=== PATIENT | female | born 1955 | race Caucasian/White ===

== ENCOUNTER 2017-04-15 12:18 | Inpatient (IN) | payer MEDICAID ==
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
[2017-04-15 15:16] LABS: % IMMATURE GRANULYOCYTES 0.3 % (0.0-1.1); ABSOLUTE IMMATURE GRANULOCYTES 0.03 10^3/uL (0.00-0.10); ADD DIFF? NO; ADD MORPH? NO; ADD SCAN? NO; ATYPICAL LYMPHOCYTE FLAG 0 (0-99); FRAGMENT RBC FLAG 0 (0-99); HEMATOCRIT 46.4 % (38.0-47.0); HEMOGLOBIN 15.5 g/dL (12.6-16.3); LEFT SHIFT FLG 0 (0-99); LIPEMIA HEMOLYSIS FLAG 80 (0-99); MEAN CELL HEMOGLOBIN 29.5 pg (27.9-34.1); MEAN CELL HEMOGLOBIN CONCENTR. 33.4 g/dL (32.4-36.7); MEAN CELL VOLUME 88.4 fL (81.5-99.8); PLATELET CLUMPS FLAG 0 (0-99); PLATELET COUNT 232 10^3/uL (150-400); RED BLOOD CELL COUNT 5.25 10^6/uL (4.18-5.33); RED CELL DISTRIBUTION WIDTH 14.3 % (11.5-15.2)
[2017-04-15 15:29] LABS: ANION GAP 9 mEq/L (8-16); CALCIUM 8.9 mg/dL (8.5-10.4); CARBON DIOXIDE 27 mEq/l (22-31); CHLORIDE 106 mEq/L (97-110); CREATININE 0.5 mg/dL (0.6-1.0); ETHANOL SERUM < 10 mg/dL (0-10); GLOMERULAR FILTRATION RATE > 60; GLUCOSE 121 mg/dL (70-100); POTASSIUM 4.2 mEq/L (3.5-5.2); SODIUM 142 mEq/L (134-144)
[2017-04-15] MEDS ORDERED: PREGABALIN 150 MG CAP PO ONE (19:08)
[2017-04-16] MEDS ORDERED: METHADONE HCL 10 MG TAB PO ONE (02:00)
[2017-04-16] MEDS ORDERED: DABIGATRAN ETEXILATE MESYL 150 MG CAP PO ONE (02:58)
[2017-04-16] MEDS ORDERED: METOPROLOL TARTRATE 50 MG TAB PO ONE (02:58)
[2017-04-16] MEDS ORDERED: FUROSEMIDE 40 MG TAB PO ONE (03:01)
[2017-04-16] MEDS ORDERED: METOPROLOL TARTRATE 25 MG TAB ONE (08:44)
[2017-04-16] MEDS ORDERED: FUROSEMIDE 40 MG TAB ONE (08:44)
[2017-04-16] MEDS ORDERED: DABIGATRAN ETEXILATE MESYL 150 MG CAP PO SCH (09:00)
[2017-04-16] MEDS ORDERED: LISINOPRIL 10 MG TAB PO SCH (09:00)
[2017-04-16] MEDS: metFORMIN HCL 500 MG TAB PO SCH ×2 (09:48→20:09)
[2017-04-16] MEDS: PREGABALIN 100 MG CAP PO SCH ×2 (09:48→20:08)
[2017-04-16] MEDS ORDERED: METHADONE HCL 1 MG/ML SYR PO ONE (09:57)
[2017-04-16] MEDS: METOPROLOL TARTRATE 25 MG TAB PO SCH (20:28)
[2017-04-16] MEDS ORDERED: ACETAMINOPHEN 325 MG TAB PO PRN (21:04)
[2017-04-16] MEDS ORDERED: MAGNESIUM HYDROXIDE 30 ML UDCUP PO PRN (21:04)
[2017-04-16] MEDS: FLUTICASONE/SALMETER 250/50MCG DISKUS IH SCH ×2 (21:12→21:18)
[2017-04-16] MEDS: DABIGATRAN ETEXILATE MESYL 150 MG CAP PO SCH (21:12)
[2017-04-16] MEDS: LORazepam 0.5 MG TAB PO PRN (21:14)
[2017-04-16] MEDS ORDERED: PREGABALIN 50 MG CAP PO SCH (22:00)
[2017-04-16] MEDS ORDERED: METHADONE HCL 10 MG TAB PO SCH (22:00)
[2017-04-17] MEDS ORDERED: D50W 25 GM/50 ML SYR IVP PRN (07:26)
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
[2017-04-17] MEDS: PREGABALIN 50 MG CAP PO SCH ×3 (08:02→21:32)
[2017-04-17] MEDS: METHADONE HCL 10 MG TAB PO SCH ×3 (08:03→21:32)
[2017-04-17] MEDS: FUROSEMIDE 40 MG TAB PO SCH ×2 (09:00→15:42)
[2017-04-17] MEDS: INSULIN LISPRO 100 UNIT/ML SC SCH ×4 (09:00→18:35)
[2017-04-17] MEDS ORDERED: METHADONE HCL 1 MG/ML SYR PO ONE (09:57)
[2017-04-17] MEDS: POTASSIUM CL 10 MEQ TAB PO SCH ×2 (10:45→15:49)
[2017-04-17] MEDS: metFORMIN HCL 500 MG TAB PO SCH ×2 (10:45→18:36)
[2017-04-17] MEDS: METOPROLOL TARTRATE 25 MG TAB PO SCH ×2 (10:46→21:33)
[2017-04-17] MEDS: LISINOPRIL 10 MG TAB PO SCH (10:46)
[2017-04-17] MEDS: DABIGATRAN ETEXILATE MESYL 150 MG CAP PO SCH ×2 (10:47→21:31)
[2017-04-17] MEDS: LORazepam 0.5 MG TAB PO PRN (10:53)
[2017-04-17] MEDS: FLUTICASONE/SALMETER 250/50MCG DISKUS IH SCH ×2 (11:57→21:32)
--- NOTE | 2017-04-17 14:32 | WOCRNPDOC ---
WOCRN Advanced Assessment Note - Skin Integrity Problem, Advanced Assess Left Lower Leg Venous Stasis Ulcer Dressing Type: Telfa, Other Other Dressing Type: stretch net Dressing Description: Intact, Shadowed Exudate Amount: Scant Exudate Color: Reddish/Yellow Exudate Characteristic(s): Serosanguinous Integumentary Issue Intervention: Dressing Changed, Hydrogel Applied (Anasept wound gel, supplied by wound care and left w/ nursing) Jose Wound Tissue: Erythema, Denuded, Scaly, Venous Dermatitis, Painful/Tender Jose Wound Swelling: Mild Wound Bed Color: Red Wound Bed Constitution: Smooth Tissue Wound Edges: Irregular Site Odor: None Site Measurement - Head-to-Toe Length X Width X Depth (cm): 2.5cmx1.7cmx0.1cm Skin Integrity Problem Comment: Wound noted on lower anterior left leg, consistent in appearance w/ venous stasis ulcer. Initial injury may have been a skin tear, as there is a partial skin flap across the wound bed. However, jose- wound skin changes indicate long-term venous insufficiency, including hemosiderin staining and venous dermatitis. In addition, moist and dry desquamation observed on this extremity. No purulence or necrosis noted. There is some discrete erythema and c/o pain to this site, but no difference in local tissue temperature when compared to other extremity. truck bracer did a wound culture last night, results currently pending. Patient reports having compression therapy in the outpatient setting at the [facility], and I advised her to continue this type of therapy ongoing upon discharge. Dressing with hypochlorous wound gel applied this afternoon. truck bracer Cindi present and assisting. Wound care will follow up with patient on Sunday 04/22 if she remains inpatient.
[2017-04-18] MEDS: PROMETHAZINE HCL 25 MG TAB PO PRN (01:12)
[2017-04-18] MEDS: PREGABALIN 50 MG CAP PO SCH ×3 (01:33→20:36)
[2017-04-18] MEDS: METHADONE HCL 10 MG TAB PO SCH ×3 (01:34→20:35)
[2017-04-18] MEDS: LORazepam 0.5 MG TAB PO PRN ×2 (01:35→12:27)
[2017-04-18 02:40] LABS: HEMOGLOBIN A1C 7.9 % (4.0-6.0)
--- NOTE | 2017-04-18 07:44 | SOAPPROG ---
SOAP Progress Note Assessment/Plan: Assessment: Plan: 04/18/17 DAY ' UPDATE/EXAM: Objective: Vital Signs Temp Pulse Resp BP Pulse Ox 36.5 C 75 20 94/51 L 92 04/18/17 00:30 04/18/17 00:30 04/18/17 00:30 04/18/17 00:30 04/18/17 00:30 Microbiology 04/16/17 21:10 Gram Stain - Final Leg - Swab ICD10 Worksheet Patient Problems: Problems Problem Status Onset Depression Acute Abscess of abdominal wall Acute Abscess of thigh Acute Heroin addiction Acute MRSA (methicillin resistant Staphylococcus aureus) Acute 07/01/15 Urinary tract infection Acute
[2017-04-18] MEDS: INSULIN LISPRO 100 UNIT/ML SC SCH ×3 (07:57→17:23)
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
[2017-04-18] MEDS: metFORMIN HCL 500 MG TAB PO SCH ×2 (08:34→17:36)
[2017-04-18] MEDS: DABIGATRAN ETEXILATE MESYL 150 MG CAP PO SCH ×2 (08:34→20:34)
[2017-04-18] MEDS: FLUTICASONE/SALMETER 250/50MCG DISKUS IH SCH ×2 (08:34→20:34)
[2017-04-18] MEDS: POTASSIUM CL 10 MEQ TAB PO SCH ×2 (08:35→15:02)
[2017-04-18] MEDS: FUROSEMIDE 40 MG TAB PO SCH ×2 (08:35→15:06)
[2017-04-18] MEDS: LISINOPRIL 10 MG TAB PO SCH (10:03)
[2017-04-18] MEDS: METOPROLOL TARTRATE 25 MG TAB PO SCH ×2 (10:04→20:36)
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
[2017-04-18] MEDS: buPROPion SR 100 MG TAB PO SCH (12:25)
[2017-04-18] MEDS ORDERED: METHADONE HCL 1 MG/ML SYR PO SCH (16:00)
[2017-04-18] MEDS: traZODone 50 MG TAB PO SCH (20:36)
[2017-04-19] MEDS: LORazepam 0.5 MG TAB PO PRN ×2 (01:39→22:25)
[2017-04-19] MEDS: PREGABALIN 50 MG CAP PO SCH ×4 (05:11→21:36)
[2017-04-19] MEDS: METHADONE HCL 10 MG TAB PO SCH ×4 (05:12→21:36)
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
[2017-04-19] MEDS: DABIGATRAN ETEXILATE MESYL 150 MG CAP PO SCH ×2 (08:10→21:37)
[2017-04-19] MEDS: LISINOPRIL 10 MG TAB PO SCH (08:10)
[2017-04-19] MEDS: metFORMIN HCL 500 MG TAB PO SCH ×2 (08:11→16:22)
[2017-04-19] MEDS: METOPROLOL TARTRATE 25 MG TAB PO SCH ×2 (08:11→21:37)
[2017-04-19] MEDS: POTASSIUM CL 10 MEQ TAB PO SCH ×2 (08:12→13:56)
[2017-04-19] MEDS: buPROPion SR 100 MG TAB PO SCH (08:12)
[2017-04-19] MEDS: FUROSEMIDE 40 MG TAB PO SCH ×2 (08:13→13:56)
[2017-04-19] MEDS: FLUTICASONE/SALMETER 250/50MCG DISKUS IH SCH ×2 (08:13→21:36)
[2017-04-19] MEDS: INSULIN LISPRO 100 UNIT/ML SC SCH ×3 (08:13→17:21)
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
[2017-04-19] MEDS: PROMETHAZINE HCL 25 MG TAB PO PRN (16:22)
[2017-04-19] MEDS: traZODone 50 MG TAB PO SCH (21:38)
[2017-04-19] MEDS: MAG HYDROX/AL HYDROX/SIMETH 30 ML UDCUP PO PRN (23:56)
[2017-04-20] MEDS: METHADONE HCL 10 MG TAB PO SCH ×3 (05:00→21:07)
[2017-04-20] MEDS: PREGABALIN 50 MG CAP PO SCH ×3 (05:00→21:07)
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
[2017-04-20] MEDS: INSULIN LISPRO 100 UNIT/ML SC SCH ×3 (08:10→17:05)
[2017-04-20] MEDS: buPROPion SR 100 MG TAB PO SCH (08:11)
[2017-04-20] MEDS: metFORMIN HCL 500 MG TAB PO SCH ×2 (08:11→17:05)
[2017-04-20] MEDS: POTASSIUM CL 10 MEQ TAB PO SCH ×2 (08:16→14:40)
[2017-04-20] MEDS: DABIGATRAN ETEXILATE MESYL 150 MG CAP PO SCH ×2 (08:16→21:07)
[2017-04-20] MEDS: FUROSEMIDE 40 MG TAB PO SCH ×2 (08:16→14:40)
[2017-04-20] MEDS: FLUTICASONE/SALMETER 250/50MCG DISKUS IH SCH ×2 (08:17→21:14)
[2017-04-20] MEDS: LISINOPRIL 10 MG TAB PO SCH (08:37)
[2017-04-20] MEDS: METOPROLOL TARTRATE 25 MG TAB PO SCH ×2 (08:37→21:08)
--- NOTE | 2017-04-20 13:26 | SOAPPROG ---
SOAP Progress Note Assessment/Plan: Assessment: Plan: 04/18/17 09:00 DAY UPDATE/EXAM: Nursing reports that pt slept poorly and had an interactive conflict with second shift RN about needing better pain control and wanting refrigeration lead doctor called; pt became angry and verbally abusive when pain concerns perceived as not addressed and also briefly barricaded self in room but did respond to limits and quieted down/ on direct exam pt presented as calm cooperative, conversant; pain issue discussed and I endorsed increase Methadone and having Dr Maury stark pt in f/u consultation tomorrow; also discussed trial of Bupropion and Trazodone for syndromal depression; pt more disclosing of 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 ASSESSMENT/PLAN: sustained syndromal depression, increase in chronic back pain, reactive regressive episode of anger last PM/ begin Bupropion SR 100 mg qam, Trazodone 50 mg hs, increase Methadone to 20 mg tid; management plan d/w Nursing in Rounds 04/19/17 11:30 DAY UPDATE/EXAM: Nursing report last 24 cycle has gone better- no reactive regressive behaviors, pain relief with titration of Methadone to 20 mg tid, less observable syndromal depression on direct exam pt's mood better, reports pain relief; more disclosure about [facility] and short term history a/w syndromal depression; responsive to reintegrative support. 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 [employer] until medical disability worsened enough in 2008 that she had to stop and go on disability support; reviewed meds; discussed DC planning including [facility] f/u and housing options ASSESSMENT/PLAN: sustaining improving course/ no change in meds today but will consider updosing tomorrow - AD's; no change in management plan d/w Nursing in Rounds Objective: Vital Signs Temp Pulse Resp BP Pulse Ox 36.6 C 79 14 103/59 L 92 04/20/17 08:00 04/20/17 08:00 04/20/17 08:00 04/20/17 08:00 04/20/17 08:00 ICD10 Worksheet Patient Problems: Problems Problem Status Onset Depression Acute Abscess of abdominal wall Acute Abscess of thigh Acute Heroin addiction Acute MRSA (methicillin resistant Staphylococcus aureus) Acute 07/01/15 Urinary tract infection Acute
--- NOTE | 2017-04-20 14:53 | SOAPPROG ---
SOAP Progress Note Assessment/Plan: Assessment: * DM2. Elevated blood sugars and HgA1c 7.9, with goal of 7.0. Willincrease metformin from 500 mg BID to 1000 mg BID. Continue to monitor, continue SSI. Consider adding second oral agent, e.g. an SGLT2 inhibitor which might augment the diuretic effect of furosemide and help weight loss, or DPP-IV inhibitor, which might also help weight loss. Sulfonylurea or insulin would be expected to cause weight gain. * HTN, adequate control, continue current meds. * Chronic back pain and peripheral neuropathy, symptomatically improved with titration of methadone. 04/20/17 14:48 Subjective: ATSP re chronic back pain, DM2, HTN. She reports pain is much better with methadone increased from 10 mg TID to 20 mg TID. She sasy her usual dose of metformin is 1000 mg BID. Objective: Vital Signs Temp Pulse Resp BP Pulse Ox 36.6 C 79 14 103/59 L 92 04/20/17 08:00 04/20/17 08:00 04/20/17 08:00 04/20/17 08:00 04/20/17 08:00 Physical Exam - Physical Exam General Appearance: WD/WN, alert, no apparent distress, obese Respiratory: normal breath sounds, No crackles, No rhonchi, No wheezing Cardiac/Chest: regular rate, rhythm, other (distant heart sounds) Peripheral Pulses: 2+: dorsalis-pedis (R), dorsalis-pedis (L) Neuro/Psych: alert, normal mood/affect, oriented x 3 ICD10 Worksheet Patient Problems: Problems Problem Status Onset Depression Acute Abscess of abdominal wall Acute Abscess of thigh Acute Heroin addiction Acute MRSA (methicillin resistant Staphylococcus aureus) Acute 07/01/15 Urinary tract infection Acute
[2017-04-20] MEDS: traZODone 50 MG TAB PO SCH (21:08)
[2017-04-20] MEDS: MAG HYDROX/AL HYDROX/SIMETH 30 ML UDCUP PO PRN (22:28)
[2017-04-21] MEDS: LORazepam 0.5 MG TAB PO PRN (02:08)
[2017-04-21] MEDS: PROMETHAZINE HCL 25 MG TAB PO PRN ×2 (02:10→13:47)
[2017-04-21] MEDS: METHADONE HCL 10 MG TAB PO SCH ×3 (04:57→21:40)
[2017-04-21] MEDS: PREGABALIN 50 MG CAP PO SCH ×3 (04:57→21:40)
--- NOTE | 2017-04-21 06:46 | SOAPPROG ---
SOAP Progress Note Assessment/Plan: Assessment: Plan: 04/18/17 09:00 DAY UPDATE/EXAM: Nursing reports that pt slept poorly and had an interactive conflict with second shift RN about needing better pain control and wanting claim professional doctor called; pt became angry and verbally abusive when pain concerns perceived as not addressed and also briefly barricaded self in room but did respond to limits and quieted down/ on direct exam pt presented as calm cooperative, conversant; pain issue discussed and I endorsed increase Methadone and having Dr Maury stark pt in f/u consultation tomorrow; also discussed trial of Bupropion and Trazodone for syndromal depression; pt more disclosing of 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 ASSESSMENT/PLAN: sustained syndromal depression, increase in chronic back pain, reactive regressive episode of anger last PM/ begin Bupropion SR 100 mg qam, Trazodone 50 mg hs, increase Methadone to 20 mg tid; management plan d/w Nursing in Rounds 04/19/17 11:30 DAY UPDATE/EXAM: Nursing report last 24 cycle has gone better- no reactive regressive behaviors, pain relief with titration of Methadone to 20 mg tid, less observable syndromal depression on direct exam pt's mood better, reports pain relief; more disclosure about assisted and short term history a/w syndromal depression; responsive to reintegrative support. 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 [employer] until medical disability worsened enough in 2008 that she had to stop and go on disability support; reviewed meds; discussed DC planning including [facility] f/u and housing options ASSESSMENT/PLAN: sustaining improving course/ no change in meds today but will consider updosing tomorrow - AD's; no change in management plan d/w Nursing in Rounds 04/21/17 DAY ' UPDATE/EXAM: Objective: Vital Signs Temp Pulse Resp BP Pulse Ox 36.8 C 75 12 129/69 H 86 L 04/21/17 02:15 04/21/17 02:15 04/21/17 02:15 04/21/17 02:15 04/21/17 02:15 ICD10 Worksheet Patient Problems: Problems Problem Status Onset Depression Acute Abscess of abdominal wall Acute Abscess of thigh Acute Heroin addiction Acute MRSA (methicillin resistant Staphylococcus aureus) Acute 07/01/15 Urinary tract infection Acute
[2017-04-21] MEDS: metFORMIN HCL 500 MG TAB PO SCH ×2 (08:51→18:08)
[2017-04-21] MEDS: buPROPion SR 100 MG TAB PO SCH (08:52)
[2017-04-21] MEDS: DABIGATRAN ETEXILATE MESYL 150 MG CAP PO SCH ×2 (08:52→21:40)
[2017-04-21] MEDS: LISINOPRIL 10 MG TAB PO SCH (08:52)
[2017-04-21] MEDS: METOPROLOL TARTRATE 25 MG TAB PO SCH ×2 (08:52→21:44)
[2017-04-21] MEDS: POTASSIUM CL 10 MEQ TAB PO SCH ×2 (08:53→14:45)
[2017-04-21] MEDS: FUROSEMIDE 40 MG TAB PO SCH ×2 (08:55→14:45)
[2017-04-21] MEDS: FLUTICASONE/SALMETER 250/50MCG DISKUS IH SCH ×2 (08:55→22:00)
[2017-04-21] MEDS: INSULIN LISPRO 100 UNIT/ML SC SCH ×3 (09:23→18:07)
[2017-04-21] MEDS: traZODone 50 MG TAB PO SCH (21:40)
[2017-04-22] MEDS: METHADONE HCL 10 MG TAB PO SCH ×3 (05:10→21:03)
[2017-04-22] MEDS: PREGABALIN 50 MG CAP PO SCH ×3 (05:19→21:04)
[2017-04-22] MEDS: INSULIN LISPRO 100 UNIT/ML SC SCH ×3 (07:55→16:58)
--- NOTE | 2017-04-22 07:55 | SOAPPROG ---
SOAP Progress Note Assessment/Plan: Assessment: Plan: 04/18/17 09:00 DAY UPDATE/EXAM: Nursing reports that pt slept poorly and had an interactive conflict with second shift RN about needing better pain control and wanting operations support specialist doctor called; pt became angry and verbally abusive when pain concerns perceived as not addressed and also briefly barricaded self in room but did respond to limits and quieted down/ on direct exam pt presented as calm cooperative, conversant; pain issue discussed and I endorsed increase Methadone and having Dr Maury stark pt in f/u consultation tomorrow; also discussed trial of Bupropion and Trazodone for syndromal depression; pt more disclosing of 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 ASSESSMENT/PLAN: sustained syndromal depression, increase in chronic back pain, reactive regressive episode of anger last PM/ begin Bupropion SR 100 mg qam, Trazodone 50 mg hs, increase Methadone to 20 mg tid; management plan d/w Nursing in Rounds 04/19/17 11:30 DAY UPDATE/EXAM: Nursing report last 24 cycle has gone better- no reactive regressive behaviors, pain relief with titration of Methadone to 20 mg tid, less observable syndromal depression on direct exam pt's mood better, reports pain relief; more disclosure about [facility] and short term history a/w syndromal depression; responsive to reintegrative support. 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 [employer] until medical disability worsened enough in 2008 that she had to stop and go on disability support; reviewed meds; discussed DC planning including [facility] f/u and housing options ASSESSMENT/PLAN: sustaining improving course/ no change in meds today but will consider updosing tomorrow - AD's; no change in management plan d/w Nursing in Rounds 04/21/17 DAY ' UPDATE/EXAM: nursing reports pt slept 5 hrs, continues to evidence descriptive gains in resolving syndromal depression; engaging effectively in milieu community and is supportive to selective patients/ on direct exam mood is less dysphoric, pt calm and conversant; focus on syndromal update, meds review, and DC planning; medical status discussed - pt states she usually sleeps in recliner secondary to COPD/ CHF; will order nocturna 02 prn to maintain sats >92 ASSESSMENT/PLAN: continues descriptive improvement/ will reassess meds for ? titrating Buproion in AM; monitor 02 sats Objective: Vital Signs Temp Pulse Resp BP Pulse Ox 36.6 C 68 16 113/67 92 04/22/17 00:30 04/22/17 00:30 04/22/17 00:30 04/22/17 00:30 04/22/17 00:30 ICD10 Worksheet Patient Problems: Problems Problem Status Onset Abscess of abdominal wall Acute Abscess of thigh Acute Depression Acute Heroin addiction Acute MRSA (methicillin resistant Staphylococcus aureus) Acute 07/01/15 Urinary tract infection Acute
[2017-04-22] MEDS: FLUTICASONE/SALMETER 250/50MCG DISKUS IH SCH ×2 (07:56→21:02)
[2017-04-22] MEDS: metFORMIN HCL 500 MG TAB PO SCH ×2 (07:56→17:00)
[2017-04-22] MEDS: buPROPion SR 100 MG TAB PO SCH (07:57)
[2017-04-22] MEDS: POTASSIUM CL 10 MEQ TAB PO SCH ×2 (07:58→14:05)
[2017-04-22] MEDS: FUROSEMIDE 40 MG TAB PO SCH ×2 (07:59→12:39)
[2017-04-22] MEDS: METOPROLOL TARTRATE 25 MG TAB PO SCH ×2 (08:02→21:03)
[2017-04-22] MEDS: DABIGATRAN ETEXILATE MESYL 150 MG CAP PO SCH ×2 (08:02→21:00)
[2017-04-22] MEDS: LISINOPRIL 10 MG TAB PO SCH (08:07)
--- NOTE | 2017-04-22 13:54 | SOAPPROG ---
SOAP Progress Note Assessment/Plan: Assessment: Plan: 04/18/17 09:00 DAY UPDATE/EXAM: Nursing reports that pt slept poorly and had an interactive conflict with second shift RN about needing better pain control and wanting welcome wagon host/hostess doctor called; pt became angry and verbally abusive when pain concerns perceived as not addressed and also briefly barricaded self in room but did respond to limits and quieted down/ on direct exam pt presented as calm cooperative, conversant; pain issue discussed and I endorsed increase Methadone and having Dr Maury stark pt in f/u consultation tomorrow; also discussed trial of Bupropion and Trazodone for syndromal depression; pt more disclosing of 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 ASSESSMENT/PLAN: sustained syndromal depression, increase in chronic back pain, reactive regressive episode of anger last PM/ begin Bupropion SR 100 mg qam, Trazodone 50 mg hs, increase Methadone to 20 mg tid; management plan d/w Nursing in Rounds 04/19/17 11:30 DAY UPDATE/EXAM: Nursing report last 24 cycle has gone better- no reactive regressive behaviors, pain relief with titration of Methadone to 20 mg tid, less observable syndromal depression on direct exam pt's mood better, reports pain relief; more disclosure about [facility] and short term history a/w syndromal depression; responsive to reintegrative support. 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 on to operate a successful [employer] until medical disability worsened enough in 2008 that she had to stop and go on disability support; reviewed meds; discussed DC planning including [facility] f/u and housing options ASSESSMENT/PLAN: sustaining improving course/ no change in meds today but will consider updosing tomorrow - AD's; no change in management plan d/w Nursing in Rounds 04/21/17 DAY UPDATE/EXAM: nursing reports pt slept 5 hrs, continues to evidence descriptive gains in resolving syndromal depression; engaging effectively in milieu community and is supportive to selective patients/ on direct exam mood is less dysphoric, pt calm and conversant; focus on syndromal update, meds review, and DC planning; medical status discussed - pt states she usually sleeps in recliner secondary to COPD/ CHF; will order nocturna 02 prn to maintain sats >92 ASSESSMENT/PLAN: continues descriptive improvement/ will reassess meds for ? titrating Buproion in AM; monitor 02 sats 04/22/17 13:45 DAY UPDATE/EXAM: Nursing reports pt sustaining improving course but complicated by episode of chest pain in evening - pt taken to ED and cardiac ischemia r/o'd by direct exam, EKG negative for ischemic change, Tropinin screen negative. Pt's 02 sats on RA in low 90's; nocturnal 02 at 2L flow rate intranasally applied O/ N to keep sats> 92/ on exam today pt says CP continues relatively unchanged; o/ w mental stats gains sustained. ASSESSMENT/PLAN: lessening syndromal depression; persistent CP which was r/od for cardiac ischemia by Ed evaluation last evening/ will increase Bupropion sr to 200 mg qam; discussed persistent cP with Dr Mendiola who will f/u with pt today ; no other meds changes or management changes Objective: Vital Signs Temp Pulse Resp BP Pulse Ox 36.3 C 74 20 109/69 93 04/22/17 08:05 04/22/17 08:05 04/22/17 08:05 04/22/17 08:05 04/22/17 08:05 ICD10 Worksheet Patient Problems: Problems Problem Status Onset Abscess of abdominal wall Acute Abscess of thigh Acute Depression Acute Heroin addiction Acute MRSA (methicillin resistant Staphylococcus aureus) Acute 07/01/15 Urinary tract infection Acute
--- NOTE | 2017-04-22 13:56 | SOAPPROG ---
SOAP Progress Note Assessment/Plan: Assessment: Plan: 04/18/17 09:00 DAY UPDATE/EXAM: Nursing reports that pt slept poorly and had an interactive conflict with second shift RN about needing better pain control and wanting generation technician doctor called; pt became angry and verbally abusive when pain concerns perceived as not addressed and also briefly barricaded self in room but did respond to limits and quieted down/ on direct exam pt presented as calm cooperative, conversant; pain issue discussed and I endorsed increase Methadone and having Dr Maury stark pt in f/u consultation tomorrow; also discussed trial of Bupropion and Trazodone for syndromal depression; pt more disclosing of 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 ASSESSMENT/PLAN: sustained syndromal depression, increase in chronic back pain, reactive regressive episode of anger last PM/ begin Bupropion SR 100 mg qam, Trazodone 50 mg hs, increase Methadone to 20 mg tid; management plan d/w Nursing in Rounds 04/19/17 11:30 DAY UPDATE/EXAM: Nursing report last 24 cycle has gone better- no reactive regressive behaviors, pain relief with titration of Methadone to 20 mg tid, less observable syndromal depression on direct exam pt's mood better, reports pain relief; more disclosure about long-term and short term history a/w syndromal depression; responsive to reintegrative support. 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; states she went on to operate a successful [employer] until medical disability worsened enough in 2008 that she had to stop and go on disability support; reviewed meds; discussed DC planning including [facility] f/u and housing options ASSESSMENT/PLAN: sustaining improving course/ no change in meds today but will consider updosing tomorrow - AD's; no change in management plan d/w Nursing in Rounds 04/21/17 DAY UPDATE/EXAM: nursing reports pt slept 5 hrs, continues to evidence descriptive gains in resolving syndromal depression; engaging effectively in milieu community and is supportive to selective patients/ on direct exam mood is less dysphoric, pt calm and conversant; focus on syndromal update, meds review, and DC planning; medical status discussed - pt states she usually sleeps in recliner secondary to COPD/ CHF; will order nocturna 02 prn to maintain sats >92 ASSESSMENT/PLAN: continues descriptive improvement/ will reassess meds for ? titrating Buproion in AM; monitor 02 sats 04/22/17 13:45 DAY UPDATE/EXAM: Nursing reports pt sustaining improving course but complicated by episode of chest pain in evening - pt taken to ED and cardiac ischemia r/o'd by direct exam, EKG negative for ischemic change, Tropinin screen negative. Pt's 02 sats on RA in low 90's; nocturnal 02 at 2L flow rate intranasally applied O/ N to keep sats> 92/ on exam today pt says CP continues relatively unchanged; o/ w mental stats gains sustained. ASSESSMENT/PLAN: lessening syndromal depression; persistent CP which was r/od for cardiac ischemia by Ed evaluation last evening/ will increase Bupropion sr to 150 mg qam; discussed persistent cP with Dr Mendiola who will f/u with pt today ; no other meds changes or management changes 04/22/17 13:56 Objective: Vital Signs Temp Pulse Resp BP Pulse Ox 36.3 C 74 20 109/69 93 04/22/17 08:05 04/22/17 08:05 04/22/17 08:05 04/22/17 08:05 04/22/17 08:05 ICD10 Worksheet Patient Problems: Problems Problem Status Onset Abscess of abdominal wall Acute Abscess of thigh Acute Depression Acute Heroin addiction Acute MRSA (methicillin resistant Staphylococcus aureus) Acute 07/01/15 Urinary tract infection Acute
[2017-04-22] MEDS ORDERED: NS 1,000 ML IV SCH (14:30)
[2017-04-22] MEDS ORDERED: PANTOPRAZOLE SODIUM 40 MG TAB PO ONE (14:41)
[2017-04-22] MEDS: MAG HYDROX/AL HYDROX/SIMETH 30 ML UDCUP PO PRN (14:43)
--- NOTE | 2017-04-22 14:53 | SOAPPROG ---
SOAP Progress Note Assessment/Plan: Assessment: Acute L chest pain, epigastric pain, back pain in patient with h/o aortic dissection. KS ruled out yesterday. Had tachycardia this afternoon which has resolved. BP lower X 2 days but not hypotensive. CBC wnl yesterday. Discussed possibility of sending to ED for abd CT to R/O aortic dissection. She prefers to do medical workup on unit first. Ordered CBC, CMP. lipase stat. Give Maalox, start pantoprazole, hold dabigatran. Reassess vitals when labs are available. I personally reviewed labs, EKG and CXR from yesterday at the ED. * DM2. Elevated blood sugars and HgA1c 7.9, with goal of 7.0. Increased metformin from 500 mg BID to 1000 mg BID on 04/20/17. Continue to monitor, continue SSI. Consider adding second oral agent, e.g. an SGLT2 inhibitor which might augment the diuretic effect of furosemide and help weight loss, or DPP-IV inhibitor, which might also help weight loss. Sulfonylurea or insulin would be expected to cause weight gain. * HTN, adequate control, continue current meds. * Chronic back pain and peripheral neuropathy, symptomatically improved with titration of methadone. 04/22/17 14:54 Subjective: ATSP re epigastric pain. Reports pain under L breast, epigastric area, and radiating to back. Not like symptoms of prior pulmonary embolus. Similar to pain from "type A dissection" in 1994, for which she reports she was treated with an interventional radiology procedure. ED visit yesterday for similar symptoms, with KS ruled out by enzymes and EKG. Denies cough or dyspnea. Does not feel thirsty. No n/v/c/d. Objective: Vital Signs Temp Pulse Resp BP Pulse Ox 36.5 C 70 16 101/68 92 04/22/17 14:43 04/22/17 14:43 04/22/17 14:43 04/22/17 14:43 04/22/17 14:43 Physical Exam - Physical Exam General Appearance: WD/WN, alert, no apparent distress, mild distress, obese EENT: other (MMs moist, no pallor) Respiratory: normal breath sounds, No crackles, No rhonchi, No wheezing Cardiac/Chest: regular rate, rhythm, other (distant) Peripheral Pulses: 2+: dorsalis-pedis (R), dorsalis-pedis (L) Skin: normal color, diaphoresis ICD10 Worksheet Patient Problems: Problems Problem Status Onset Abscess of abdominal wall Acute Abscess of thigh Acute Depression Acute Heroin addiction Acute MRSA (methicillin resistant Staphylococcus aureus) Acute 07/01/15 Urinary tract infection Acute
[2017-04-22] MEDS: PANTOPRAZOLE SODIUM 40 MG TAB PO SCH ×2 (15:01→21:04)
[2017-04-22] MEDS: PROMETHAZINE HCL 25 MG TAB PO PRN (18:36)
[2017-04-22] MEDS: traZODone 50 MG TAB PO SCH (21:04)
[2017-04-23] MEDS: METHADONE HCL 10 MG TAB PO SCH ×5 (01:22→20:49)
[2017-04-23] MEDS: DABIGATRAN ETEXILATE MESYL 150 MG CAP PO SCH ×3 (01:23→20:48)
[2017-04-23] MEDS: traZODone 50 MG TAB PO SCH ×2 (01:23→20:50)
[2017-04-23] MEDS: PREGABALIN 50 MG CAP PO SCH ×4 (01:24→20:49)
[2017-04-23] MEDS: FLUTICASONE/SALMETER 250/50MCG DISKUS IH SCH ×3 (01:56→20:48)
[2017-04-23] MEDS: PANTOPRAZOLE SODIUM 40 MG TAB PO SCH ×3 (01:57→20:48)
[2017-04-23] MEDS: FUROSEMIDE 40 MG TAB PO SCH ×2 (07:14→12:01)
--- NOTE | 2017-04-23 07:54 | SOAPPROG ---
SOAP Progress Note Assessment/Plan: Assessment: Plan: 04/18/17 09:00 DAY UPDATE/EXAM: Nursing reports that pt slept poorly and had an interactive conflict with second shift RN about needing better pain control and wanting sand control worker doctor called; pt became angry and verbally abusive when pain concerns perceived as not addressed and also briefly barricaded self in room but did respond to limits and quieted down/ on direct exam pt presented as calm cooperative, conversant; pain issue discussed and I endorsed increase Methadone and having Dr Maury stark pt in f/u consultation tomorrow; also discussed trial of Bupropion and Trazodone for syndromal depression; pt more disclosing of 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 ASSESSMENT/PLAN: sustained syndromal depression, increase in chronic back pain, reactive regressive episode of anger last PM/ begin Bupropion SR 100 mg qam, Trazodone 50 mg hs, increase Methadone to 20 mg tid; management plan d/w Nursing in Rounds 04/19/17 11:30 DAY UPDATE/EXAM: Nursing report last 24 cycle has gone better- no reactive regressive behaviors, pain relief with titration of Methadone to 20 mg tid, less observable syndromal depression on direct exam pt's mood better, reports pain relief; more disclosure about alf and short term history a/w syndromal depression; responsive to reintegrative support. 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 [employer] until medical disability worsened enough in 2008 that she had to stop and go on disability support; reviewed meds; discussed DC planning including [facility] f/u and housing options ASSESSMENT/PLAN: sustaining improving course/ no change in meds today but will consider updosing tomorrow - AD's; no change in management plan d/w Nursing in Rounds 04/21/17 DAY UPDATE/EXAM: nursing reports pt slept 5 hrs, continues to evidence descriptive gains in resolving syndromal depression; engaging effectively in milieu community and is supportive to selective patients/ on direct exam mood is less dysphoric, pt calm and conversant; focus on syndromal update, meds review, and DC planning; medical status discussed - pt states she usually sleeps in recliner secondary to COPD/ CHF; will order nocturna 02 prn to maintain sats >92 ASSESSMENT/PLAN: continues descriptive improvement/ will reassess meds for ? titrating Buproion in AM; monitor 02 sats 04/22/17 13:45 DAY UPDATE/EXAM: Nursing reports pt sustaining improving course but complicated by episode of chest pain in evening - pt taken to ED and cardiac ischemia r/o'd by direct exam, EKG negative for ischemic change, Troponin screen negative. Pt's 02 sats on RA in low 90's; nocturnal 02 at 2L flow rate intranasally applied O/ N to keep sats> 92/ on exam today pt says CP continues relatively unchanged; o/ w mental stats gains sustained. ASSESSMENT/PLAN: lessening syndromal depression; persistent CP which was r/o'd for cardiac ischemia by ED evaluation last evening/ will increase Bupropion sr to 150 mg qam; discussed persistent CP with Dr Mendiola who will f/u with pt today ; no other meds changes or management changes 04/22/17 13:50 Objective: Vital Signs Temp Pulse Resp BP Pulse Ox 36.9 C 71 14 111/61 90 L 04/23/17 06:18 04/23/17 06:18 04/23/17 06:18 04/23/17 06:18 04/23/17 06:18 ICD10 Worksheet Patient Problems: Problems Problem Status Onset Abscess of abdominal wall Acute Abscess of thigh Acute Chest pain Acute Depression Acute Heroin addiction Acute MRSA (methicillin resistant Staphylococcus aureus) Acute 07/01/15 Urinary tract infection Acute
[2017-04-23] MEDS: INSULIN LISPRO 100 UNIT/ML SC SCH ×4 (08:19→16:53)
[2017-04-23] MEDS: metFORMIN HCL 500 MG TAB PO SCH ×2 (08:22→17:12)
[2017-04-23] MEDS: POTASSIUM CL 10 MEQ TAB PO SCH ×2 (08:23→14:16)
[2017-04-23] MEDS: METOPROLOL TARTRATE 25 MG TAB PO SCH ×2 (08:27→20:49)
[2017-04-23] MEDS: buPROPion SR 150 MG TAB PO SCH (08:35)
[2017-04-23] MEDS: LISINOPRIL 10 MG TAB PO SCH (08:35)
[2017-04-23] MEDS ORDERED: INSULIN LISPRO 100 UNIT/ML SC ONE (13:30)
--- NOTE | 2017-04-23 19:38 | SOAPPROG ---
YSABEL Progress Note Assessment/Plan: Assessment: 61yo CM with mult med probs and acute stressor of homelessness resulting in suicidal ideation with plan to jump in front of train. 04/23/17 14:44 "emotionally I'm good", states meds are "fine", notes her glc has been up which affects her energy "zero" and just overall not feeling physically well. "I'm working toward getting back to a good starting point to rebuild things" t/a hoping she could leave for her overnight sleep study scheduled 2 mo ago for 04/25 at 8pm, feels she has YSABEL, chronic poor sleep quality, desats to 60s% when screened for YSABEL in past, but doesn't feel she is ready for d/c without a good plan in place. no place to live. no acute or new physical concerns. requests razor to amyve. denies med s/e mse: cooperative, engaging, good eye contact, nml speech rate/vol, mood "good", affect full and appropriate, no evid of thought d/o, denied SI, no HI, I/J seem good. future oriented PLAN: -cont current meds Wellbutrin 150mg qd -d/c suicide prec -okay razor to ambrocio w/supervision as per unit protocol Objective: Vital Signs Temp Pulse Resp BP Pulse Ox 36.7 C 80 18 109/56 L 90 L 04/23/17 17:36 04/23/17 17:36 04/23/17 17:36 04/23/17 17:36 04/23/17 17:36 - Time Spent With Patient Time Spent With Patient: 35min - Pending Discharge Pending Discharge Within 24 Hours: No Pending Discharge Within 48 Hours: No ICD10 Worksheet Patient Problems: Problems Problem Status Onset Abscess of abdominal wall Acute Abscess of thigh Acute Depression Acute Heroin addiction Acute MRSA (methicillin resistant Staphylococcus aureus) Acute 07/01/15 Urinary tract infection Acute
[2017-04-24] MEDS: METHADONE HCL 10 MG TAB PO SCH ×3 (06:09→21:18)
[2017-04-24] MEDS: PREGABALIN 50 MG CAP PO SCH ×3 (06:10→21:27)
[2017-04-24] MEDS: FUROSEMIDE 40 MG TAB PO SCH ×2 (06:41→12:20)
[2017-04-24] MEDS: metFORMIN HCL 500 MG TAB PO SCH ×2 (07:32→17:51)
[2017-04-24] MEDS: DABIGATRAN ETEXILATE MESYL 150 MG CAP PO SCH ×2 (08:19→21:18)
[2017-04-24] MEDS: INSULIN LISPRO 100 UNIT/ML SC SCH ×3 (08:19→16:46)
[2017-04-24] MEDS: LISINOPRIL 10 MG TAB PO SCH (08:19)
[2017-04-24] MEDS: PANTOPRAZOLE SODIUM 40 MG TAB PO SCH ×2 (08:20→21:18)
[2017-04-24] MEDS: POTASSIUM CL 10 MEQ TAB PO SCH ×2 (08:20→14:15)
[2017-04-24] MEDS: METOPROLOL TARTRATE 25 MG TAB PO SCH ×2 (08:20→21:19)
[2017-04-24] MEDS: buPROPion SR 150 MG TAB PO SCH (08:20)
[2017-04-24] MEDS: FLUTICASONE/SALMETER 250/50MCG DISKUS IH SCH ×2 (08:30→21:31)
[2017-04-24] MEDS: MAG HYDROX/AL HYDROX/SIMETH 30 ML UDCUP PO PRN (10:27)
[2017-04-24] MEDS: PROMETHAZINE HCL 25 MG TAB PO PRN (13:15)
[2017-04-24] MEDS: LORazepam 0.5 MG TAB PO PRN (16:09)
[2017-04-24] MEDS: traZODone 50 MG TAB PO SCH (21:18)
--- NOTE | 2017-04-25 03:01 | SOAPPROG ---
SOAP Progress Note Assessment/Plan: Assessment: 61yo CM with mult med probs and acute stressor of homelessness resulting in suicidal ideation with plan to jump in front of train. 04/23/17 14:44 "emotionally I'm good", states meds are "fine", notes her glc has been up which affects her energy "zero" and just overall not feeling physically well. "I'm working toward getting back to a good starting point to rebuild things" t/a hoping she could leave for her overnight sleep study scheduled 2 mo ago for 04/25 at 8pm, feels she has YSABEL, chronic poor sleep quality, desats to 60s% when screened for YSABEL in past, but doesn't feel she is ready for d/c without a good plan in place. no place to live. no acute or new physical concerns. requests razor to shave. denies med s/e mse: cooperative, engaging, good eye contact, nml speech rate/vol, mood "good", affect full and appropriate, no evid of thought d/o, denied SI, no HI, I/J seem good. future oriented PLAN: -cont current meds Wellbutrin 150mg qd -d/c suicide prec -okay razor to ambrocio w/supervision as per unit protocol 04/24/17 12:56 slept 5hr no new concerns. states "doing well". noted wearing O2nc in milieu today. nocturnal pOx study ordered for tonight. apparently this doesn't allow for a CPAP order, would still need overnight study in sleep lab. may need to reschedule if not d/c tomorrow, but certainly if w/YSABEL, treating this would be very beneficial for her mood and overall health. denies SI, no psychosis/thought d/o. PLAN: -cont Wellbutrin 150mg -cont other meds as before Objective: Vital Signs Temp Pulse Resp BP Pulse Ox 36.5 C 70 87 H 90/60 L 92 04/24/17 17:30 04/24/17 21:19 04/24/17 17:30 04/24/17 21:19 04/24/17 10:30 - Time Spent With Patient Time Spent With Patient: 15min - Pending Discharge Pending Discharge Within 24 Hours: No Pending Discharge Within 48 Hours: No ICD10 Worksheet Patient Problems: Problems Problem Status Onset Abscess of abdominal wall Acute Abscess of thigh Acute Depression Acute Heroin addiction Acute MRSA (methicillin resistant Staphylococcus aureus) Acute 07/01/15 Urinary tract infection Acute
[2017-04-25] MEDS: PREGABALIN 50 MG CAP PO SCH ×3 (05:28→20:48)
[2017-04-25] MEDS: METHADONE HCL 10 MG TAB PO SCH ×4 (05:29→21:33)
[2017-04-25] MEDS: buPROPion SR 150 MG TAB PO SCH (11:41)
[2017-04-25] MEDS: DABIGATRAN ETEXILATE MESYL 150 MG CAP PO SCH ×2 (11:42→20:48)
[2017-04-25] MEDS: FLUTICASONE/SALMETER 250/50MCG DISKUS IH SCH ×2 (11:42→21:33)
[2017-04-25] MEDS: INSULIN LISPRO 100 UNIT/ML SC SCH ×3 (11:43→16:55)
[2017-04-25] MEDS: metFORMIN HCL 500 MG TAB PO SCH ×2 (11:44→16:55)
[2017-04-25] MEDS: LISINOPRIL 10 MG TAB PO SCH (11:44)
[2017-04-25] MEDS: METOPROLOL TARTRATE 25 MG TAB PO SCH ×2 (11:45→21:04)
[2017-04-25] MEDS: PANTOPRAZOLE SODIUM 40 MG TAB PO SCH ×2 (11:45→20:48)
[2017-04-25] MEDS: POTASSIUM CL 10 MEQ TAB PO SCH ×2 (11:45→14:04)
--- NOTE | 2017-04-25 11:48 | SOAPPROG ---
SOAP Progress Note Assessment/Plan: Assessment: Plan: 04/18/17 09:00 DAY UPDATE/EXAM: Nursing reports that pt slept poorly and had an interactive conflict with second shift RN about needing better pain control and wanting gas distribution and emergency clerk doctor called; pt became angry and verbally abusive when pain concerns perceived as not addressed and also briefly barricaded self in room but did respond to limits and quieted down/ on direct exam pt presented as calm cooperative, conversant; pain issue discussed and I endorsed increase Methadone and having Dr Maury stark pt in f/u consultation tomorrow; also discussed trial of Bupropion and Trazodone for syndromal depression; pt more 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 ASSESSMENT/PLAN: sustained syndromal depression, increase in chronic back pain, reactive regressive episode of anger last PM/ begin Bupropion SR 100 mg qam, Trazodone 50 mg hs, increase Methadone to 20 mg tid; management plan d/w Nursing in Rounds 04/19/17 11:30 DAY UPDATE/EXAM: Nursing report last 24 cycle has gone better- no reactive regressive behaviors, pain relief with titration of Methadone to 20 mg tid, less observable syndromal depression on direct exam pt's mood better, reports pain relief; more disclosure about fpc and short term history a/w syndromal depression; responsive to reintegrative support. 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 medical disability worsened enough in 2008 that she had to stop and go on disability support; reviewed meds; discussed DC planning including [facility] f/u and housing options ASSESSMENT/PLAN: sustaining improving course/ no change in meds today but will consider updosing tomorrow - AD's; no change in management plan d/w Nursing in Rounds 04/21/17 DAY UPDATE/EXAM: nursing reports pt slept 5 hrs, continues to evidence descriptive gains in resolving syndromal depression; engaging effectively in milieu community and is supportive to selective patients/ on direct exam mood is less dysphoric, pt calm and conversant; focus on syndromal update, meds review, and DC planning; medical status discussed - pt states she usually sleeps in recliner secondary to COPD/ CHF; will order nocturna 02 prn to maintain sats >92 ASSESSMENT/PLAN: continues descriptive improvement/ will reassess meds for ? titrating Buproion in AM; monitor 02 sats 04/22/17 13:45 DAY UPDATE/EXAM: Nursing reports pt sustaining improving course but complicated by episode of chest pain in evening - pt taken to ED and cardiac ischemia r/o'd by direct exam, EKG negative for ischemic change, Troponin screen negative. Pt's 02 sats on RA in low 90's; nocturnal 02 at 2L flow rate intranasally applied O/ N to keep sats> 92/ on exam today pt says CP continues relatively unchanged; o/ w mental stats gains sustained. ASSESSMENT/PLAN: lessening syndromal depression; persistent CP which was r/o'd for cardiac ischemia by ED evaluation last evening/ will increase Bupropion sr to 150 mg qam; discussed persistent CP with Dr Mendiola who will f/u with pt today ; no other meds changes or management changes 04/22/17 13:50 04/25/17 09:00 UPDATE/EXAM: Objective: Vital Signs Temp Pulse Resp BP Pulse Ox 36.5 C 70 87 H 90/60 L 92 04/24/17 17:30 04/24/17 21:19 04/24/17 17:30 04/24/17 21:19 04/24/17 10:30 ICD10 Worksheet Patient Problems: Problems Problem Status Onset Abscess of abdominal wall Acute Abscess of thigh Acute Depression Acute Heroin addiction Acute MRSA (methicillin resistant Staphylococcus aureus) Acute 07/01/15 Urinary tract infection Acute
[2017-04-25] MEDS: FUROSEMIDE 40 MG TAB PO SCH (11:52)
--- NOTE | 2017-04-25 16:35 | WOCRNPDOC ---
WOCRN Advanced Assessment Note - Skin Integrity Problem, Advanced Assess Left Lower Leg Venous Stasis Ulcer Dressing Type: Allevyn Life Dressing Description: Clean/Dry, Intact Exudate Amount: Scant Exudate Color: Yellow Exudate Characteristic(s): Serous Integumentary Issue Intervention: Visualized Under Dressing Albertina Wound Tissue: Erythema, Swollen, Venous Dermatitis Albertina Wound Swelling: Mild Wound Bed Color: Hoberg, Red Wound Bed Constitution: Granulation Tissue, Smooth Tissue Wound Edges: Epithelizing Site Odor: None Site Measurement - Head-to-Toe Length X Width X Depth (cm): 0.8cmx0.6cmx0.1cm Skin Integrity Problem Comment: Wound on anterior LLE has decreased significantly since previous assessment, epithelializing along the margins. 50/ 50 mix of smooth and granulating tissues noted, w/ irregular margins, consistent w/ venous stasis. +2 pitting edema noted in this extremity, w/ taut, shiny skin. Patient presently denies pain to this wound, though she does c/o throbbing pain in her L foot/toes r/t fall last night. Continue w/ current wound care orders until site is fully healed. Patient will need ongoing compression therapy when outpatient to control edema. Report given to cell cleaner Donna. Wound care does not need to follow this patient ongoing. Advised to reconsult if condition worsens, or if new issue develops.
[2017-04-25] MEDS: LORazepam 0.5 MG TAB PO PRN (16:55)
[2017-04-25] MEDS: traZODone 50 MG TAB PO SCH (20:48)
[2017-04-26] MEDS: METHADONE HCL 10 MG TAB PO SCH ×3 (04:52→20:45)
[2017-04-26] MEDS: PREGABALIN 50 MG CAP PO SCH ×3 (04:52→20:44)
--- NOTE | 2017-04-26 07:03 | SOAPPROG ---
SOAP Progress Note Assessment/Plan: Assessment: Plan: 04/18/17 09:00 DAY UPDATE/EXAM: Nursing reports that pt slept poorly and had an interactive conflict with second shift RN about needing better pain control and wanting national account director doctor called; pt became angry and verbally abusive when pain concerns perceived as not addressed and also briefly barricaded self in room but did respond to limits and quieted down/ on direct exam pt presented as calm cooperative, conversant; pain issue discussed and I endorsed increase Methadone and having Dr Maury stark pt in f/u consultation tomorrow; also discussed trial of Bupropion and Trazodone for syndromal depression; pt more disclosing of 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 ASSESSMENT/PLAN: sustained syndromal depression, increase in chronic back pain, reactive regressive episode of anger last PM/ begin Bupropion SR 100 mg qam, Trazodone 50 mg hs, increase Methadone to 20 mg tid; management plan d/w Nursing in Rounds 04/19/17 11:30 DAY UPDATE/EXAM: Nursing report last 24 cycle has gone better- no reactive regressive behaviors, pain relief with titration of Methadone to 20 mg tid, less observable syndromal depression on direct exam pt's mood better, reports pain relief; more disclosure about alf and short term history a/w syndromal depression; responsive to reintegrative support. 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 [employer] until medical disability worsened enough in 2008 that she had to stop and go on disability support; reviewed meds; discussed DC planning including [facility]HP f/u and housing options ASSESSMENT/PLAN: sustaining improving course/ no change in meds today but will consider updosing tomorrow - AD's; no change in management plan d/w Nursing in Rounds 04/21/17 DAY UPDATE/EXAM: nursing reports pt slept 5 hrs, continues to evidence descriptive gains in resolving syndromal depression; engaging effectively in milieu community and is supportive to selective patients/ on direct exam mood is less dysphoric, pt calm and conversant; focus on syndromal update, meds review, and DC planning; medical status discussed - pt states she usually sleeps in recliner secondary to COPD/ CHF; will order nocturna 02 prn to maintain sats >92 ASSESSMENT/PLAN: continues descriptive improvement/ will reassess meds for ? titrating Buproion in AM; monitor 02 sats 04/22/17 13:45 DAY UPDATE/EXAM: Nursing reports pt sustaining improving course but complicated by episode of chest pain in evening - pt taken to ED and cardiac ischemia r/o'd by direct exam, EKG negative for ischemic change, Troponin screen negative. Pt's 02 sats on RA in low 90's; nocturnal 02 at 2L flow rate intranasally applied O/ N to keep sats> 92/ on exam today pt says CP continues relatively unchanged; o/ w mental stats gains sustained. ASSESSMENT/PLAN: lessening syndromal depression; persistent CP which was r/o'd for cardiac ischemia by ED evaluation last evening/ will increase Bupropion sr to 150 mg qam; discussed persistent CP with Dr Mendiola who will f/u with pt today ; no other meds changes or management changes 04/22/17 13:50 04/25/17 09:00 UPDATE/EXAM: Nursing reports pt's mental status continues to clear syndromal depression; she was seen again 04/22 for persistent CP initially by Dr. Mendiola in f/u on the unit and then later in pm sent to the ED. Assessment again negative for cardiac ischemic and pain again thought to be non cardial chest wall pain and pt returned to the unit Objective: Vital Signs Temp Pulse Resp BP Pulse Ox 36.9 C 73 16 105/51 L 88 L 04/26/17 00:30 04/26/17 00:30 04/26/17 00:30 04/26/17 00:30 04/26/17 00:30 ICD10 Worksheet Patient Problems: Problems Problem Status Onset Abscess of abdominal wall Acute Abscess of thigh Acute Depression Acute Heroin addiction Acute MRSA (methicillin resistant Staphylococcus aureus) Acute 07/01/15 Urinary tract infection Acute
--- NOTE | 2017-04-26 07:15 | SOAPPROG ---
SOAP Progress Note Assessment/Plan: Assessment: Plan: 04/18/17 09:00 DAY UPDATE/EXAM: Nursing reports that pt slept poorly and had an interactive conflict with second shift RN about needing better pain control and wanting installation technician doctor called; pt became angry and verbally abusive when pain concerns perceived as not addressed and also briefly barricaded self in room but did respond to limits and quieted down/ on direct exam pt presented as calm cooperative, conversant; pain issue discussed and I endorsed increase Methadone and having Dr Maury stark pt in f/u consultation tomorrow; also discussed trial of Bupropion and Trazodone for syndromal depression; pt more disclosing of 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 ASSESSMENT/PLAN: sustained syndromal depression, increase in chronic back pain, reactive regressive episode of anger last PM/ begin Bupropion SR 100 mg qam, Trazodone 50 mg hs, increase Methadone to 20 mg tid; management plan d/w Nursing in Rounds 04/19/17 11:30 DAY UPDATE/EXAM: Nursing report last 24 cycle has gone better- no reactive regressive behaviors, pain relief with titration of Methadone to 20 mg tid, less observable syndromal depression on direct exam pt's mood better, reports pain relief; more disclosure about half-way and short term history a/w syndromal depression; responsive to reintegrative support. 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 [employer] until medical disability worsened enough in 2008 that she had to stop and go on disability support; reviewed meds; discussed DC planning including MHP f/u and housing options ASSESSMENT/PLAN: sustaining improving course/ no change in meds today but will consider updosing tomorrow - AD's; no change in management plan d/w Nursing in Rounds 04/21/17 DAY UPDATE/EXAM: nursing reports pt slept 5 hrs, continues to evidence descriptive gains in resolving syndromal depression; engaging effectively in milieu community and is supportive to selective patients/ on direct exam mood is less dysphoric, pt calm and conversant; focus on syndromal update, meds review, and DC planning; medical status discussed - pt states she usually sleeps in recliner secondary to COPD/ CHF; will order nocturna 02 prn to maintain sats >92 ASSESSMENT/PLAN: continues descriptive improvement/ will reassess meds for ? titrating Buproion in AM; monitor 02 sats 04/22/17 13:45 DAY UPDATE/EXAM: Nursing reports pt sustaining improving course but complicated by episode of chest pain in evening - pt taken to ED and cardiac ischemia r/o'd by direct exam, EKG negative for ischemic change, Troponin screen negative. Pt's 02 sats on RA in low 90's; nocturnal 02 at 2L flow rate intranasally applied O/ N to keep sats> 92/ on exam today pt says CP continues relatively unchanged; o/ w mental stats gains sustained. ASSESSMENT/PLAN: lessening syndromal depression; persistent CP which was r/o'd for cardiac ischemia by ED evaluation last evening/ will increase Bupropion sr to 150 mg qam; discussed persistent CP with Dr Mendiola who will f/u with pt today ; no other meds changes or management changes 04/22/17 13:50 04/25/17 09:00 UPDATE/EXAM: Nursing reports pt's mental status continues to clear syndromal depression; she was seen again 04/22 for persistent CP initially by Dr. Mendiola in f/u on the unit and then later in pm sent to the ED. Assessment again negative for cardiac ischemic and pain again thought to be non cardial chest wall pain and pt returned to the unit; in ED CTA chest and thorax negative for any acute vascular findings, tropoinin 1 again negative/ on direct exam pt states not having CP after return from ED and thru the weekend; does report having o/n evaluation of her pulse oximetry on RA; report shows Spo2 at 4% 81-85, 26% 86-89 , and 70% 90-95 - these results suggest pt a candidate for sleep study post DC for ? sleep apnea; o/w mood improving and pt in DC planning phase. Did have mechanical fall getting out of bed this AM and injured L great toe. ASSESSMENT/PLAN: resolving syndromal depression; ? fracture L great toe/ pending xray of L foot and great toe; no change in meds and management plan; proceed with DC planning ASSESSMENT/PLAN: continues improvinf course in resolving sdromal depression; medically stable o/t than painful L great toe Objective: Vital Signs Temp Pulse Resp BP Pulse Ox 36.9 C 73 16 105/51 L 88 L 04/26/17 00:30 04/26/17 00:30 04/26/17 00:30 04/26/17 00:30 04/26/17 00:30 ICD10 Worksheet Patient Problems: Problems Problem Status Onset Abscess of abdominal wall Acute Abscess of thigh Acute Depression Acute Heroin addiction Acute MRSA (methicillin resistant Staphylococcus aureus) Acute 07/01/15 Urinary tract infection Acute
[2017-04-26] MEDS: buPROPion SR 100 MG TAB PO SCH (08:23)
[2017-04-26] MEDS: POTASSIUM CL 10 MEQ TAB PO SCH ×2 (08:23→14:18)
[2017-04-26] MEDS: PANTOPRAZOLE SODIUM 40 MG TAB PO SCH ×2 (08:24→20:45)
[2017-04-26] MEDS: metFORMIN HCL 500 MG TAB PO SCH ×2 (08:24→16:58)
[2017-04-26] MEDS: METOPROLOL TARTRATE 25 MG TAB PO SCH ×3 (08:24→20:46)
[2017-04-26] MEDS: FUROSEMIDE 40 MG TAB PO SCH ×3 (08:24→12:20)
[2017-04-26] MEDS: DABIGATRAN ETEXILATE MESYL 150 MG CAP PO SCH ×2 (08:24→20:44)
[2017-04-26] MEDS: LISINOPRIL 10 MG TAB PO SCH (08:25)
[2017-04-26] MEDS: FLUTICASONE/SALMETER 250/50MCG DISKUS IH SCH ×2 (08:26→20:55)
[2017-04-26] MEDS: INSULIN LISPRO 100 UNIT/ML SC SCH ×4 (08:44→20:44)
[2017-04-26] MEDS ORDERED: METOPROLOL TARTRATE 25 MG TAB PO ONE (09:00)
[2017-04-26] MEDS: PROMETHAZINE HCL 25 MG TAB PO PRN (14:53)
[2017-04-26] MEDS: LORazepam 0.5 MG TAB PO PRN (17:30)
[2017-04-26] MEDS ORDERED: INSULIN REGULAR HUMAN 100 UNIT/ML SC ONE (20:45)
[2017-04-26] MEDS: traZODone 50 MG TAB PO SCH (20:45)
[2017-04-26] MEDS ORDERED: METOPROLOL SUCCINATE XR 25 MG TAB PO SCH (21:00)
[2017-04-27] MEDS: METHADONE HCL 10 MG TAB PO SCH ×3 (05:53→20:37)
[2017-04-27] MEDS: PREGABALIN 50 MG CAP PO SCH ×3 (05:54→20:37)
[2017-04-27] MEDS: FUROSEMIDE 40 MG TAB PO SCH ×2 (06:55→08:16)
[2017-04-27] MEDS: PANTOPRAZOLE SODIUM 40 MG TAB PO SCH ×2 (08:16→20:37)
[2017-04-27] MEDS: metFORMIN HCL 500 MG TAB PO SCH ×2 (08:16→17:00)
[2017-04-27] MEDS: DABIGATRAN ETEXILATE MESYL 150 MG CAP PO SCH ×2 (08:16→20:37)
[2017-04-27] MEDS: buPROPion SR 100 MG TAB PO SCH (08:16)
[2017-04-27] MEDS: POTASSIUM CL 10 MEQ TAB PO SCH ×2 (08:16→14:05)
[2017-04-27] MEDS: LISINOPRIL 10 MG TAB PO SCH (08:17)
[2017-04-27] MEDS: INSULIN LISPRO 100 UNIT/ML SC SCH ×2 (08:18→13:37)
[2017-04-27] MEDS: METOPROLOL TARTRATE 25 MG TAB PO SCH ×2 (08:21→20:37)
[2017-04-27] MEDS: FLUTICASONE/SALMETER 250/50MCG DISKUS IH SCH ×2 (08:24→20:38)
--- NOTE | 2017-04-27 08:31 | SOAPPROG ---
SOAP Progress Note Assessment/Plan: Assessment: Plan: 04/18/17 09:00 DAY UPDATE/EXAM: Nursing reports that pt slept poorly and had an interactive conflict with second shift RN about needing better pain control and wanting safety and occupational health manager doctor called; pt became angry and verbally abusive when pain concerns perceived as not addressed and also briefly barricaded self in room but did respond to limits and quieted down/ on direct exam pt presented as calm cooperative, conversant; pain issue discussed and I endorsed increase Methadone and having Dr Maury stark pt in f/u consultation tomorrow; also discussed trial of Bupropion and Trazodone for syndromal depression; pt more disclosing of 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 ASSESSMENT/PLAN: sustained syndromal depression, increase in chronic back pain, reactive regressive episode of anger last PM/ begin Bupropion SR 100 mg qam, Trazodone 50 mg hs, increase Methadone to 20 mg tid; management plan d/w Nursing in Rounds 04/19/17 11:30 DAY UPDATE/EXAM: Nursing report last 24 cycle has gone better- no reactive regressive behaviors, pain relief with titration of Methadone to 20 mg tid, less observable syndromal depression on direct exam pt's mood better, reports pain relief; more disclosure about detention and short term history a/w syndromal depression; responsive to reintegrative support. 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 [employer] until medical disability worsened enough in 2008 that she had to stop and go on disability support; reviewed meds; discussed DC planning including MHP f/u and housing options ASSESSMENT/PLAN: sustaining improving course/ no change in meds today but will consider updosing tomorrow - AD's; no change in management plan d/w Nursing in Rounds 04/21/17 DAY UPDATE/EXAM: nursing reports pt slept 5 hrs, continues to evidence descriptive gains in resolving syndromal depression; engaging effectively in milieu community and is supportive to selective patients/ on direct exam mood is less dysphoric, pt calm and conversant; focus on syndromal update, meds review, and DC planning; medical status discussed - pt states she usually sleeps in recliner secondary to COPD/ CHF; will order nocturna 02 prn to maintain sats >92 ASSESSMENT/PLAN: continues descriptive improvement/ will reassess meds for ? titrating Buproion in AM; monitor 02 sats 04/22/17 13:45 DAY UPDATE/EXAM: Nursing reports pt sustaining improving course but complicated by episode of chest pain in evening - pt taken to ED and cardiac ischemia r/o'd by direct exam, EKG negative for ischemic change, Troponin screen negative. Pt's 02 sats on RA in low 90's; nocturnal 02 at 2L flow rate intranasally applied O/ N to keep sats> 92/ on exam today pt says CP continues relatively unchanged; o/ w mental stats gains sustained. ASSESSMENT/PLAN: lessening syndromal depression; persistent CP which was r/o'd for cardiac ischemia by ED evaluation last evening/ will increase Bupropion sr to 150 mg qam; discussed persistent CP with Dr Mendiola who will f/u with pt today ; no other meds changes or management changes 04/22/17 13:50 04/25/17 09:00 DAY UPDATE/EXAM: Nursing reports pt's mental status continues to clear syndromal depression; she was seen again 04/22 for persistent CP initially by Dr. Mendiola in f/u on the unit and then later in pm sent to the ED. Assessment again negative for cardiac ischemic and pain again thought to be non cardial chest wall pain and pt returned to the unit; in ED CTA chest and thorax negative for any acute vascular findings, troponin 1 again negative/ on direct exam pt states not having CP after return from ED and thru the weekend; does report having o/n evaluation of her pulse oximetry on RA; report shows SpO2 at 4% 81-85, 26% 86-89 , and 70% 90-95 - these results suggest pt a candidate for sleep study post DC for ? sleep apnea; o/w mood improving and pt in DC planning phase. Did have mechanical fall getting out of bed this AM and injured L great toe. ASSESSMENT/PLAN: resolving syndromal depression; ? fracture L great toe/ pending xray of L foot and great toe; no change in meds and management plan; proceed with DC planning 04/26/17 DAY UPDATE/EXAM: Nursing reports pt sustaining gains -- c/w cares/meds, engaging milieu and attending groups selectively; did fall getting out of bed and twisted left leg under her with resultant pain in L great toe xray done and report pending/ on direct exam mood minimally dysphoric, calm conversant; syndromal update, meds review, DC planning discussed in session focus. INSURANCE REVIEW WITH PSYCHIATRIST EXAMINER: coverage extended thru today ASSESSMENT/PLAN: marked improvement in syndromal depression; residual medical issues a/w DM management, respiratory management, pain management, ? great toe fx/ no change in meds or management; medical care review and preparation for DC and effective placement - consider [facility] or [facility] stepdown 04/27/17 DAY UPDDATE/EXAM: Objective: Vital Signs Temp Pulse Resp BP Pulse Ox 36.7 C 83 14 119/59 L 92 04/27/17 08:00 04/27/17 08:00 04/27/17 08:00 04/27/17 08:17 04/27/17 08:00 ICD10 Worksheet Patient Problems: Problems Problem Status Onset Abscess of abdominal wall Acute Abscess of thigh Acute Depression Acute Heroin addiction Acute MRSA (methicillin resistant Staphylococcus aureus) Acute 07/01/15 Urinary tract infection Acute
--- NOTE | 2017-04-27 13:04 | SOAPPROG ---
SOAP Progress Note Assessment/Plan: Assessment: * DM2. Elevated blood sugars and HgA1c 7.9, with goal of 7.0. Increased metformin from 500 mg BID to 1000 mg BID on 04/20/17. Continue to monitor, continue SSI. Discussed options including Consider adding second oral agent, e.g. an SGLT2 inhibitor such as exenatide which might augment the diuretic effect of furosemide and help weight loss. Sulfonylurea or insulin would be expected to cause weight gain. She prefers to be discharged on metformin 1000 mg BID and to follow-up with primary care after discharge re second agent. She has no need for insulin in the short term. Blood sugars are elevated but not sufficiently to cause any acute harm. * HTN, with episode of hypotension. Agree with reduction in metoprolol and furosemide. Follow-up with primary care provider. * Chronic back pain and peripheral neuropathy, symptomatically improved with titration of methadone. * Chest pain. Had ED visits X 2. [place] ruled out, aortic dissection ruled out with chest CT and interestingly there was no evidence of prior aortic procedure. Continue to treat for GERD. 04/27/17 13:53 Subjective: Follow-up on medical issues. Had an episode of hypotension with symptoms. BS running mid-100s, occ > 200. Furosemide dose was held and metoprolol decreased due to hypotension. Objective: Vital Signs Temp Pulse Resp BP Pulse Ox 36.7 C 83 14 119/59 L 92 04/27/17 08:00 04/27/17 08:00 04/27/17 08:00 04/27/17 08:17 04/27/17 08:00 ICD10 Worksheet Patient Problems: Problems Problem Status Onset Abscess of abdominal wall Acute Abscess of thigh Acute Depression Acute Heroin addiction Acute MRSA (methicillin resistant Staphylococcus aureus) Acute 07/01/15 Urinary tract infection Acute
[2017-04-27] MEDS ORDERED: INSULIN LISPRO 100 UNIT/ML SC ONE (14:25)
--- NOTE | 2017-04-27 14:29 | SOAPPROG ---
SOAP Progress Note Assessment/Plan: Assessment: Plan: 04/18/17 09:00 DAY UPDATE/EXAM: Nursing reports that pt slept poorly and had an interactive conflict with second shift RN about needing better pain control and wanting bessemer converter operator doctor called; pt became angry and verbally abusive when pain concerns perceived as not addressed and also briefly barricaded self in room but did respond to limits and quieted down/ on direct exam pt presented as calm cooperative, conversant; pain issue discussed and I endorsed increase Methadone and having Dr Maury satrk pt in f/u consultation tomorrow; also discussed trial of Bupropion and Trazodone for syndromal depression; pt more disclosing of 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 ASSESSMENT/PLAN: sustained syndromal depression, increase in chronic back pain, reactive regressive episode of anger last PM/ begin Bupropion SR 100 mg qam, Trazodone 50 mg hs, increase Methadone to 20 mg tid; management plan d/w Nursing in Rounds 04/19/17 11:30 DAY UPDATE/EXAM: Nursing report last 24 cycle has gone better- no reactive regressive behaviors, pain relief with titration of Methadone to 20 mg tid, less observable syndromal depression on direct exam pt's mood better, reports pain relief; more disclosure about assisted and short term history a/w syndromal depression; responsive to reintegrative support. 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 [employer] until medical disability worsened enough in 2008 that she had to stop and go on disability support; reviewed meds; discussed DC planning including [facility] f/u and housing options ASSESSMENT/PLAN: sustaining improving course/ no change in meds today but will consider updosing tomorrow - AD's; no change in management plan d/w Nursing in Rounds 04/21/17 DAY UPDATE/EXAM: nursing reports pt slept 5 hrs, continues to evidence descriptive gains in resolving syndromal depression; engaging effectively in milieu community and is supportive to selective patients/ on direct exam mood is less dysphoric, pt calm and conversant; focus on syndromal update, meds review, and DC planning; medical status discussed - pt states she usually sleeps in recliner secondary to COPD/ CHF; will order nocturna 02 prn to maintain sats >92 ASSESSMENT/PLAN: continues descriptive improvement/ will reassess meds for ? titrating Buproion in AM; monitor 02 sats 04/22/17 13:45 DAY UPDATE/EXAM: Nursing reports pt sustaining improving course but complicated by episode of chest pain in evening - pt taken to ED and cardiac ischemia r/o'd by direct exam, EKG negative for ischemic change, Troponin screen negative. Pt's 02 sats on RA in low 90's; nocturnal 02 at 2L flow rate intranasally applied O/ N to keep sats> 92/ on exam today pt says CP continues relatively unchanged; o/ w mental stats gains sustained. ASSESSMENT/PLAN: lessening syndromal depression; persistent CP which was r/o'd for cardiac ischemia by ED evaluation last evening/ will increase Bupropion sr to 150 mg qam; discussed persistent CP with Dr Mendiola who will f/u with pt today ; no other meds changes or management changes 04/22/17 13:50 04/25/17 09:00 DAY UPDATE/EXAM: Nursing reports pt's mental status continues to clear syndromal depression; she was seen again 04/22 for persistent CP initially by Dr. Mendiola in f/u on the unit and then later in pm sent to the ED. Assessment again negative for cardiac ischemic and pain again thought to be non cardial chest wall pain and pt returned to the unit; in ED CTA chest and thorax negative for any acute vascular findings, troponin 1 again negative/ on direct exam pt states not having CP after return from ED and thru the weekend; does report having o/n evaluation of her pulse oximetry on RA; report shows SpO2 at 4% 81-85, 26% 86-89 , and 70% 90-95 - these results suggest pt a candidate for sleep study post DC for ? sleep apnea; o/w mood improving and pt in DC planning phase. Did have mechanical fall getting out of bed this AM and injured L great toe. ASSESSMENT/PLAN: resolving syndromal depression; ? fracture L great toe/ pending xray of L foot and great toe; no change in meds and management plan; proceed with DC planning 04/26/17 UPDATE/EXAM: Nursing reports pt sustaining gains -- c/w cares/meds, engaging milieu and attending groups selectively; did fall getting out of bed and twisted left leg under her with resultant pain in L great toe xray done and report pending/ on direct exam mood minimally dysphoric, calm conversant; syndromal update, meds review, DC planning discussed in session focus. INSURANCE REVIEW WITH PSYCHIATRIST EXAMINER: coverage extended thru today ASSESSMENT/PLAN: marked improvement in syndromal depression; residual medical issues a/w DM management, respiratory management, pain management, ? great toe fx/ no change in meds or management; medical care review and preparation for DC and effective placement - consider [facility] or [facility] stepdown 04/27/17 11; DAY UPDATE/EXAM: Nursing reports that pt sustaining gains in resolving syndromal depression; pain remains sufficiently controlled including toe pain; wound healing well and pt able to do wound care; Metformin increased to 1000 mg bid and pt can avoid insulin use post DC; Dr Mendiola also lowered Lasix to 30 mg bid to preserve normotensive BP/ medical status reviewed with pt who presents with neutral mood and is cooperative and conversant; DC planning and her preparation for DC discussed in detail; pt responsive to reintegrative support in session. ASSESSMENT/PLAN: continues descriptive improvement and medical preparation for upcoming DC/ no change in meds or management o/t decrease in Lasix to 30 mg bid and increase in Metformin to 1000mg bid Objective: Vital Signs Temp Pulse Resp BP Pulse Ox 36.7 C 83 14 119/59 L 92 04/27/17 08:00 04/27/17 08:00 04/27/17 08:00 04/27/17 08:17 04/27/17 08:00 ICD10 Worksheet Patient Problems: Problems Problem Status Onset Abscess of abdominal wall Acute Abscess of thigh Acute Depression Acute Heroin addiction Acute MRSA (methicillin resistant Staphylococcus aureus) Acute 07/01/15 Urinary tract infection Acute
[2017-04-27] MEDS: traZODone 50 MG TAB PO SCH (20:37)
[2017-04-28] MEDS: MAG HYDROX/AL HYDROX/SIMETH 30 ML UDCUP PO PRN ×2 (03:22→12:55)
[2017-04-28] MEDS: PREGABALIN 50 MG CAP PO SCH ×3 (04:58→21:18)
[2017-04-28] MEDS: METHADONE HCL 10 MG TAB PO SCH ×3 (04:59→21:17)
[2017-04-28] MEDS: PROMETHAZINE HCL 25 MG TAB PO PRN ×2 (08:25→20:43)
[2017-04-28] MEDS: METOPROLOL TARTRATE 25 MG TAB PO SCH ×2 (08:26→21:18)
[2017-04-28] MEDS: buPROPion SR 100 MG TAB PO SCH (08:26)
[2017-04-28] MEDS: DABIGATRAN ETEXILATE MESYL 150 MG CAP PO SCH ×2 (08:26→21:17)
[2017-04-28] MEDS: LISINOPRIL 10 MG TAB PO SCH (08:26)
[2017-04-28] MEDS: metFORMIN HCL 500 MG TAB PO SCH ×2 (08:26→18:10)
[2017-04-28] MEDS: POTASSIUM CL 10 MEQ TAB PO SCH ×2 (08:27→13:50)
[2017-04-28] MEDS: PANTOPRAZOLE SODIUM 40 MG TAB PO SCH ×2 (08:27→21:18)
[2017-04-28] MEDS: FLUTICASONE/SALMETER 250/50MCG DISKUS IH SCH ×2 (08:30→21:17)
--- NOTE | 2017-04-28 12:00 | SOAPPROG ---
SOAP Progress Note Assessment/Plan: Assessment: Plan: 04/18/17 09:00 DAY UPDATE/EXAM: Nursing reports that pt slept poorly and had an interactive conflict with second shift RN about needing better pain control and wanting contract analyst doctor called; pt became angry and verbally abusive when pain concerns perceived as not addressed and also briefly barricaded self in room but did respond to limits and quieted down/ on direct exam pt presented as calm cooperative, conversant; pain issue discussed and I endorsed increase Methadone and having Dr Maury stark pt in f/u consultation tomorrow; also discussed trial of Bupropion and Trazodone for syndromal depression; pt more disclosing of 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 ASSESSMENT/PLAN: sustained syndromal depression, increase in chronic back pain, reactive regressive episode of anger last PM/ begin Bupropion SR 100 mg qam, Trazodone 50 mg hs, increase Methadone to 20 mg tid; management plan d/w Nursing in Rounds 04/19/17 11:30 DAY UPDATE/EXAM: Nursing report last 24 cycle has gone better- no reactive regressive behaviors, pain relief with titration of Methadone to 20 mg tid, less observable syndromal depression on direct exam pt's mood better, reports pain relief; more disclosure about prison and short term history a/w syndromal depression; responsive to reintegrative support. 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 [employer] until medical disability worsened enough in 2008 that she had to stop and go on disability support; reviewed meds; discussed DC planning including [facility] f/u and housing options ASSESSMENT/PLAN: sustaining improving course/ no change in meds today but will consider updosing tomorrow - AD's; no change in management plan d/w Nursing in Rounds 04/21/17 DAY UPDATE/EXAM: nursing reports pt slept 5 hrs, continues to evidence descriptive gains in resolving syndromal depression; engaging effectively in milieu community and is supportive to selective patients/ on direct exam mood is less dysphoric, pt calm and conversant; focus on syndromal update, meds review, and DC planning; medical status discussed - pt states she usually sleeps in recliner secondary to COPD/ CHF; will order nocturna 02 prn to maintain sats >92 ASSESSMENT/PLAN: continues descriptive improvement/ will reassess meds for ? titrating Buproion in AM; monitor 02 sats 04/22/17 13:45 DAY UPDATE/EXAM: Nursing reports pt sustaining improving course but complicated by episode of chest pain in evening - pt taken to ED and cardiac ischemia r/o'd by direct exam, EKG negative for ischemic change, Troponin screen negative. Pt's 02 sats on RA in low 90's; nocturnal 02 at 2L flow rate intranasally applied O/ N to keep sats> 92/ on exam today pt says CP continues relatively unchanged; o/ w mental stats gains sustained. ASSESSMENT/PLAN: lessening syndromal depression; persistent CP which was r/o'd for cardiac ischemia by ED evaluation last evening/ will increase Bupropion sr to 150 mg qam; discussed persistent CP with Dr Mendiola who will f/u with pt today ; no other meds changes or management changes 04/22/17 13:50 04/25/17 09:00 DAY UPDATE/EXAM: Nursing reports pt's mental status continues to clear syndromal depression; she was seen again 04/22 for persistent CP initially by Dr. Mendiola in f/u on the unit and then later in pm sent to the ED. Assessment again negative for cardiac ischemic and pain again thought to be non cardial chest wall pain and pt returned to the unit; in ED CTA chest and thorax negative for any acute vascular findings, troponin 1 again negative/ on direct exam pt states not having CP after return from ED and thru the weekend; does report having o/n evaluation of her pulse oximetry on RA; report shows SpO2 at 4% 81-85, 26% 86-89 , and 70% 90-95 - these results suggest pt a candidate for sleep study post DC for ? sleep apnea; o/w mood improving and pt in DC planning phase. Did have mechanical fall getting out of bed this AM and injured L great toe. ASSESSMENT/PLAN: resolving syndromal depression; ? fracture L great toe/ pending xray of L foot and great toe; no change in meds and management plan; proceed with DC planning 04/26/17 DAY UPDATE/EXAM: Nursing reports pt sustaining gains -- c/w cares/meds, engaging milieu and attending groups selectively; did fall getting out of bed and twisted left leg under her with resultant pain in L great toe xray done and report pending/ on direct exam mood minimally dysphoric, calm conversant; syndromal update, meds review, DC planning discussed in session focus. INSURANCE REVIEW WITH PSYCHIATRIST EXAMINER: coverage extended thru today ASSESSMENT/PLAN: marked improvement in syndromal depression; residual medical issues a/w DM management, respiratory management, pain management, ? great toe fx/ no change in meds or management; medical care review and preparation for DC and effective placement - consider [facility] or [facility] stepdown 04/27/17 11;00 DAY UPDATE/EXAM: Nursing reports that pt sustaining gains in resolving syndromal depression; pain remains sufficiently controlled including toe pain; wound healing well and pt able to do wound care; Metformin increased to 1000 mg bid and pt can avoid insulin use post DC; Dr Mendiola also lowered Lasix to 30 mg bid to preserve normotensive BP/ medical status reviewed with pt who presents with neutral mood and is cooperative and conversant; DC planning and her preparation for DC discussed in detail; pt responsive to reintegrative support in session. ASSESSMENT/PLAN: continues descriptive improvement and medical preparation for upcoming DC/ no change in meds or management o/t decrease in Lasix to 30 mg bid and increase in Metformin to 1000mg bid 04/28/17 11:44 DAY UPDATE/PLAN: Nursing reports pt remains stable and effectively in final phase of resolving residual syndromal depression and fully engaged in finalizing definitive DC plan. Pt's pain control is controlled, she has mastered her independent care of leg wound which is healing effectively; blood sugars are controlled in range of 100 - 200 on Metformin alone and SSI has been dc'd. Pt is mobile and will need portable oxygen tank and nasal cannula supplied for her to cover her supplemental oxygen needs post DC. Blood pressure is stable on current antihypertensives. DC plans are in process of being finalized which will include a scheduled intake with [facility] post DC to close on referral for her outpt psychiatric services. Medical care will be resumed at the [facility]/ on direct exam pt is calm, cooperative, conversant; reviewed current stage of DC planning and pt evidenced good understanding and alliance with see planning thru to closure, is working well with her Nursing Team and Big Data Hadoop Developer. ASSESSMENT/PLAN: sustaining improving course thru final DC planning phase/ no change in meds or management plan; anticipate closure on DC date with finalizing pt's placement 04/28/17 12:00 Objective: Vital Signs Temp Pulse Resp BP Pulse Ox 36.4 C 72 14 117/84 H 95 04/28/17 08:00 04/28/17 11:19 04/28/17 11:19 04/28/17 08:26 04/28/17 11:19 ICD10 Worksheet Patient Problems: Problems Problem Status Onset Abscess of abdominal wall Acute Abscess of thigh Acute Depression Acute Heroin addiction Acute MRSA (methicillin resistant Staphylococcus aureus) Acute 07/01/15 Urinary tract infection Acute
[2017-04-28 20:19] LABS: COLOR YELLOW; LEUKOCYTE ESTERASE,URINE 2+ (NEGATIVE); NITRITE,URINE NEGATIVE (NEGATIVE)
[2017-04-28 20:21] LABS: WBC,URINE 25-50 /hpf (0-3)
[2017-04-28 20:22] LABS: RBC,URINE NONE SEEN /hpf (0-3)
[2017-04-28] MEDS: ALBUTEROL 60 PUFFS/8 GM MDI IH PRN (20:43)
[2017-04-28] MEDS: traZODone 50 MG TAB PO SCH (21:17)
[2017-04-29] MEDS: PREGABALIN 50 MG CAP PO SCH ×3 (05:18→21:11)
[2017-04-29] MEDS: METHADONE HCL 10 MG TAB PO SCH ×3 (05:18→21:09)
[2017-04-29] MEDS: DABIGATRAN ETEXILATE MESYL 150 MG CAP PO SCH ×2 (08:16→21:09)
[2017-04-29] MEDS: buPROPion SR 100 MG TAB PO SCH (08:16)
[2017-04-29] MEDS: FUROSEMIDE 20 MG TAB PO SCH ×2 (08:16→12:08)
[2017-04-29] MEDS: PANTOPRAZOLE SODIUM 40 MG TAB PO SCH ×2 (08:16→21:11)
[2017-04-29] MEDS: POTASSIUM CL 10 MEQ TAB PO SCH ×2 (08:17→13:55)
[2017-04-29] MEDS: metFORMIN HCL 500 MG TAB PO SCH ×2 (08:18→18:16)
[2017-04-29] MEDS: METOPROLOL TARTRATE 25 MG TAB PO SCH ×2 (08:20→21:12)
[2017-04-29] MEDS: LISINOPRIL 10 MG TAB PO SCH (08:21)
[2017-04-29] MEDS: FLUTICASONE/SALMETER 250/50MCG DISKUS IH SCH ×2 (08:33→21:12)
--- NOTE | 2017-04-29 08:39 | SOAPPROG ---
SOAP Progress Note Assessment/Plan: Assessment: Plan: 04/18/17 09:00 DAY UPDATE/EXAM: Nursing reports that pt slept poorly and had an interactive conflict with second shift RN about needing better pain control and wanting collision repairer doctor called; pt became angry and verbally abusive when pain concerns perceived as not addressed and also briefly barricaded self in room but did respond to limits and quieted down/ on direct exam pt presented as calm cooperative, conversant; pain issue discussed and I endorsed increase Methadone and having Dr Maury stark pt in f/u consultation tomorrow; also discussed trial of Bupropion and Trazodone for syndromal depression; pt more disclosing of 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 ASSESSMENT/PLAN: sustained syndromal depression, increase in chronic back pain, reactive regressive episode of anger last PM/ begin Bupropion SR 100 mg qam, Trazodone 50 mg hs, increase Methadone to 20 mg tid; management plan d/w Nursing in Rounds 04/19/17 11:30 DAY UPDATE/EXAM: Nursing report last 24 cycle has gone better- no reactive regressive behaviors, pain relief with titration of Methadone to 20 mg tid, less observable syndromal depression on direct exam pt's mood better, reports pain relief; more disclosure about [facility] and short term history a/w syndromal depression; responsive to reintegrative support. 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 [employer] until medical disability worsened enough in 2008 that she had to stop and go on disability support; reviewed meds; discussed DC planning including [facility] f/u and housing options ASSESSMENT/PLAN: sustaining improving course/ no change in meds today but will consider updosing tomorrow - AD's; no change in management plan d/w Nursing in Rounds 04/21/17 DAY UPDATE/EXAM: nursing reports pt slept 5 hrs, continues to evidence descriptive gains in resolving syndromal depression; engaging effectively in milieu community and is supportive to selective patients/ on direct exam mood is less dysphoric, pt calm and conversant; focus on syndromal update, meds review, and DC planning; medical status discussed - pt states she usually sleeps in recliner secondary to COPD/ CHF; will order nocturna 02 prn to maintain sats >92 ASSESSMENT/PLAN: continues descriptive improvement/ will reassess meds for ? titrating Buproion in AM; monitor 02 sats 04/22/17 13:45 DAY UPDATE/EXAM: Nursing reports pt sustaining improving course but complicated by episode of chest pain in evening - pt taken to ED and cardiac ischemia r/o'd by direct exam, EKG negative for ischemic change, Troponin screen negative. Pt's 02 sats on RA in low 90's; nocturnal 02 at 2L flow rate intranasally applied O/ N to keep sats> 92/ on exam today pt says CP continues relatively unchanged; o/ w mental stats gains sustained. ASSESSMENT/PLAN: lessening syndromal depression; persistent CP which was r/o'd for cardiac ischemia by ED evaluation last evening/ will increase Bupropion sr to 150 mg qam; discussed persistent CP with Dr Mendiola who will f/u with pt today ; no other meds changes or management changes 04/22/17 13:50 04/25/17 09:00 DAY UPDATE/EXAM: Nursing reports pt's mental status continues to clear syndromal depression; she was seen again 04/22 for persistent CP initially by Dr. Mendiola in f/u on the unit and then later in pm sent to the ED. Assessment again negative for cardiac ischemic and pain again thought to be non cardial chest wall pain and pt returned to the unit; in ED CTA chest and thorax negative for any acute vascular findings, troponin 1 again negative/ on direct exam pt states not having CP after return from ED and thru the weekend; does report having o/n evaluation of her pulse oximetry on RA; report shows SpO2 at 4% 81-85, 26% 86-89 , and 70% 90-95 - these results suggest pt a candidate for sleep study post DC for ? sleep apnea; o/w mood improving and pt in DC planning phase. Did have mechanical fall getting out of bed this AM and injured L great toe. ASSESSMENT/PLAN: resolving syndromal depression; ? fracture L great toe/ pending xray of L foot and great toe; no change in meds and management plan; proceed with DC planning 04/26/17 DAY UPDATE/EXAM: Nursing reports pt sustaining gains -- c/w cares/meds, engaging milieu and attending groups selectively; did fall getting out of bed and twisted left leg under her with resultant pain in L great toe xray done and report pending/ on direct exam mood minimally dysphoric, calm conversant; syndromal update, meds review, DC planning discussed in session focus. INSURANCE REVIEW WITH PSYCHIATRIST EXAMINER: coverage extended thru today ASSESSMENT/PLAN: marked improvement in syndromal depression; residual medical issues a/w DM management, respiratory management, pain management, ? great toe fx/ no change in meds or management; medical care review and preparation for DC and effective placement - consider [facility] or [facility] stepdown 04/27/17 11;00 DAY UPDATE/EXAM: Nursing reports that pt sustaining gains in resolving syndromal depression; pain remains sufficiently controlled including toe pain; wound healing well and pt able to do wound care; Metformin increased to 1000 mg bid and pt can avoid insulin use post DC; Dr Mendiola also lowered Lasix to 30 mg bid to preserve normotensive BP/ medical status reviewed with pt who presents with neutral mood and is cooperative and conversant; DC planning and her preparation for DC discussed in detail; pt responsive to reintegrative support in session. ASSESSMENT/PLAN: continues descriptive improvement and medical preparation for upcoming DC/ no change in meds or management o/t decrease in Lasix to 30 mg bid and increase in Metformin to 1000mg bid 04/28/17 11:44 DAY UPDATE/PLAN: Nursing reports pt remains stable and effectively in final phase of resolving residual syndromal depression and fully engaged in finalizing definitive DC plan. Pt's pain control is controlled, she has mastered her independent care of leg wound which is healing effectively; blood sugars are controlled in range of 100 - 200 on Metformin alone and SSI has been dc'd. Pt is mobile and will need portable oxygen tank and nasal cannula supplied for her to cover her supplemental oxygen needs post DC. Blood pressure is stable on current antihypertensives. DC plans are in process of being finalized which will include a scheduled intake with [facility] post DC to close on referral for her outpt psychiatric services. 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 ASSESSMENT/PLAN: sustaining improving course thru final DC planning phase/ no change in meds or management plan; anticipate closure on DC date with finalizing pt's placement 04/29/17 08:36 DAY ' UPDATE/EXAM: Objective: Vital Signs Temp Pulse Resp BP Pulse Ox 36.3 C 83 14 121/63 H 89 L 04/29/17 06:24 04/29/17 08:20 04/29/17 06:24 04/29/17 08:21 04/29/17 06:24 ICD10 Worksheet Patient Problems: Problems Problem Status Onset Abscess of abdominal wall Acute Abscess of thigh Acute Depression Acute Heroin addiction Acute MRSA (methicillin resistant Staphylococcus aureus) Acute 07/01/15 Urinary tract infection Acute
[2017-04-29] MEDS: PROMETHAZINE HCL 25 MG TAB PO PRN ×2 (09:37→18:15)
--- NOTE | 2017-04-29 15:00 | SOAPPROG ---
SOAP Progress Note Assessment/Plan: Assessment: Plan: 04/18/17 09:00 DAY UPDATE/EXAM: Nursing reports that pt slept poorly and had an interactive conflict with second shift RN about needing better pain control and wanting s iron worker doctor called; pt became angry and verbally abusive when pain concerns perceived as not addressed and also briefly barricaded self in room but did respond to limits and quieted down/ on direct exam pt presented as calm cooperative, conversant; pain issue discussed and I endorsed increase Methadone and having Dr Maury stark pt in f/u consultation tomorrow; also discussed trial of Bupropion and Trazodone for syndromal depression; pt more disclosing of 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 ASSESSMENT/PLAN: sustained syndromal depression, increase in chronic back pain, reactive regressive episode of anger last PM/ begin Bupropion SR 100 mg qam, Trazodone 50 mg hs, increase Methadone to 20 mg tid; management plan d/w Nursing in Rounds 04/19/17 11:30 DAY UPDATE/EXAM: Nursing report last 24 cycle has gone better- no reactive regressive behaviors, pain relief with titration of Methadone to 20 mg tid, less observable syndromal depression on direct exam pt's mood better, reports pain relief; more disclosure about chcf and short term history a/w syndromal depression; responsive to reintegrative support. 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 [employer] until medical disability worsened enough in 2008 that she had to stop and go on disability support; reviewed meds; discussed DC planning including [facility] f/u and housing options ASSESSMENT/PLAN: sustaining improving course/ no change in meds today but will consider updosing tomorrow - AD's; no change in management plan d/w Nursing in Rounds 04/21/17 DAY UPDATE/EXAM: nursing reports pt slept 5 hrs, continues to evidence descriptive gains in resolving syndromal depression; engaging effectively in milieu community and is supportive to selective patients/ on direct exam mood is less dysphoric, pt calm and conversant; focus on syndromal update, meds review, and DC planning; medical status discussed - pt states she usually sleeps in recliner secondary to COPD/ CHF; will order nocturna 02 prn to maintain sats >92 ASSESSMENT/PLAN: continues descriptive improvement/ will reassess meds for ? titrating Buproion in AM; monitor 02 sats 04/22/17 13:45 DAY UPDATE/EXAM: Nursing reports pt sustaining improving course but complicated by episode of chest pain in evening - pt taken to ED and cardiac ischemia r/o'd by direct exam, EKG negative for ischemic change, Troponin screen negative. Pt's 02 sats on RA in low 90's; nocturnal 02 at 2L flow rate intranasally applied O/ N to keep sats> 92/ on exam today pt says CP continues relatively unchanged; o/ w mental stats gains sustained. ASSESSMENT/PLAN: lessening syndromal depression; persistent CP which was r/o'd for cardiac ischemia by ED evaluation last evening/ will increase Bupropion sr to 150 mg qam; discussed persistent CP with Dr Mendiola who will f/u with pt today ; no other meds changes or management changes 04/22/17 13:50 04/25/17 09:00 DAY UPDATE/EXAM: Nursing reports pt's mental status continues to clear syndromal depression; she was seen again 04/22 for persistent CP initially by Dr. Mendiola in f/u on the unit and then later in pm sent to the ED. Assessment again negative for cardiac ischemic and pain again thought to be non cardial chest wall pain and pt returned to the unit; in ED CTA chest and thorax negative for any acute vascular findings, troponin 1 again negative/ on direct exam pt states not having CP after return from ED and thru the weekend; does report having o/n evaluation of her pulse oximetry on RA; report shows SpO2 at 4% 81-85, 26% 86-89 , and 70% 90-95 - these results suggest pt a candidate for sleep study post DC for ? sleep apnea; o/w mood improving and pt in DC planning phase. Did have mechanical fall getting out of bed this AM and injured L great toe. ASSESSMENT/PLAN: resolving syndromal depression; ? fracture L great toe/ pending xray of L foot and great toe; no change in meds and management plan; proceed with DC planning 04/26/17 DAY UPDATE/EXAM: Nursing reports pt sustaining gains -- c/w cares/meds, engaging milieu and attending groups selectively; did fall getting out of bed and twisted left leg under her with resultant pain in L great toe xray done and report pending/ on direct exam mood minimally dysphoric, calm conversant; syndromal update, meds review, DC planning discussed in session focus. INSURANCE REVIEW WITH PSYCHIATRIST EXAMINER: coverage extended thru today ASSESSMENT/PLAN: marked improvement in syndromal depression; residual medical issues a/w DM management, respiratory management, pain management, ? great toe fx/ no change in meds or management; medical care review and preparation for DC and effective placement - consider [facility] or [facility] stepdown 04/27/17 11;00 DAY UPDATE/EXAM: Nursing reports that pt sustaining gains in resolving syndromal depression; pain remains sufficiently controlled including toe pain; wound healing well and pt able to do wound care; Metformin increased to 1000 mg bid and pt can avoid insulin use post DC; Dr Mendiola also lowered Lasix to 30 mg bid to preserve normotensive BP/ medical status reviewed with pt who presents with neutral mood and is cooperative and conversant; DC planning and her preparation for DC discussed in detail; pt responsive to reintegrative support in session. ASSESSMENT/PLAN: continues descriptive improvement and medical preparation for upcoming DC/ no change in meds or management o/t decrease in Lasix to 30 mg bid and increase in Metformin to 1000mg bid 04/28/17 11:44 DAY UPDATE/PLAN: Nursing reports pt remains stable and effectively in final phase of resolving residual syndromal depression and fully engaged in finalizing definitive DC plan. Pt's pain control is controlled, she has mastered her independent care of leg wound which is healing effectively; blood sugars are controlled in range of 100 - 200 on Metformin alone and SSI has been dc'd. Pt is mobile and will need portable oxygen tank and nasal cannula supplied for her to cover her supplemental oxygen needs post DC. Blood pressure is stable on current antihypertensives. DC plans are in process of being finalized which will include a scheduled intake with [facility] post DC to close on referral for her outpt psychiatric services. Medical care will be resumed at the [facility]/ on direct exam pt is calm, cooperative, conversant; reviewed current stage of DC planning and pt evidenced good understanding and alliance with see planning thru to closure, is working well with her Nursing Team and Dis[employer]. ASSESSMENT/PLAN: sustaining improving course thru final DC planning phase/ no change in meds or management plan; anticipate closure on DC date with finalizing pt's placement 04/29/17 08:36 DAY ' UPDATE/EXAM: Nursing reports pt is productively engaging with her treatmen plan - sustaining the gains made in resolving syndromal depression; medically stable using nocturnal 02 to maintain sats -does occasionally drop sats during the day to mid-upper 80's but has no respiratory complaints; we will consider scheduling 02 use for intervals during the day after checking sat on RA for several days/ on direct exam pt is calm, cooperative, conversant; in over- viewing course to date pt associates to the longer-term course of her depression and her loss of her CLH; this time reports more detail about knowing he had CABG emergently after admission for his CP; she reports not being allowed to see him in the ICU, multiple contact with older s on after his DC and son"s refusal to allow her to see her ; she states she one fortuitous contact wiht elder son 10 months later and learned that was dementing but was still not allowed to see him; in this session she brought up the other m theo object loss of her breast girlfriend whom she found in bed 2 yrs ago; pt teared up several times in the session, wanted to consider letting me call older son of her to advocate for her to update his status to reach "closure" as stated by the pt. Pt does understand we will collect clean-catch uring for pyuric UA reported yesterday ASSESSMENT/PLAN: sustaining gains and re-focussed on grief work/ no change in meds; culture urine; f/u grief work in AM and complete preparation for DC ? 05/01 Objective: Vital Signs Temp Pulse Resp BP Pulse Ox 36.8 C 83 14 121/63 H 93 04/29/17 08:00 04/29/17 08:20 04/29/17 06:24 04/29/17 08:21 04/29/17 08:00 ICD10 Worksheet Patient Problems: Problems Problem Status Onset Abscess of abdominal wall Acute Abscess of thigh Acute Depression Acute Heroin addiction Acute MRSA (methicillin resistant Staphylococcus aureus) Acute 07/01/15 Urinary tract infection Acute
[2017-04-29] MEDS: traZODone 50 MG TAB PO SCH (21:12)
[2017-04-30] MEDS: METHADONE HCL 10 MG TAB PO SCH ×3 (05:01→21:28)
[2017-04-30] MEDS: PREGABALIN 50 MG CAP PO SCH ×3 (05:02→21:28)
--- NOTE | 2017-04-30 07:06 | SOAPPROG ---
SOAP Progress Note Assessment/Plan: Assessment: Plan: 04/18/17 09:00 DAY UPDATE/EXAM: Nursing reports that pt slept poorly and had an interactive conflict with second shift RN about needing better pain control and wanting electron beam photo mask maker doctor called; pt became angry and verbally abusive when pain concerns perceived as not addressed and also briefly barricaded self in room but did respond to limits and quieted down/ on direct exam pt presented as calm cooperative, conversant; pain issue discussed and I endorsed increase Methadone and having Dr Maury stark pt in f/u consultation tomorrow; also discussed trial of Bupropion and Trazodone for syndromal depression; pt more disclosing of 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 ASSESSMENT/PLAN: sustained syndromal depression, increase in chronic back pain, reactive regressive episode of anger last PM/ begin Bupropion SR 100 mg qam, Trazodone 50 mg hs, increase Methadone to 20 mg tid; management plan d/w Nursing in Rounds 04/19/17 11:30 DAY UPDATE/EXAM: Nursing report last 24 cycle has gone better- no reactive regressive behaviors, pain relief with titration of Methadone to 20 mg tid, less observable syndromal depression on direct exam pt's mood better, reports pain relief; more disclosure about assisted and short term history a/w syndromal depression; responsive to reintegrative support. 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 [employer] until medical disability worsened enough in 2008 that she had to stop and go on disability support; reviewed meds; discussed DC planning including [facility] f/u and housing options ASSESSMENT/PLAN: sustaining improving course/ no change in meds today but will consider updosing tomorrow - AD's; no change in management plan d/w Nursing in Rounds 04/21/17 DAY UPDATE/EXAM: nursing reports pt slept 5 hrs, continues to evidence descriptive gains in resolving syndromal depression; engaging effectively in milieu community and is supportive to selective patients/ on direct exam mood is less dysphoric, pt calm and conversant; focus on syndromal update, meds review, and DC planning; medical status discussed - pt states she usually sleeps in recliner secondary to COPD/ CHF; will order nocturna 02 prn to maintain sats >92 ASSESSMENT/PLAN: continues descriptive improvement/ will reassess meds for ? titrating Buproion in AM; monitor 02 sats 04/22/17 13:45 DAY UPDATE/EXAM: Nursing reports pt sustaining improving course but complicated by episode of chest pain in evening - pt taken to ED and cardiac ischemia r/o'd by direct exam, EKG negative for ischemic change, Troponin screen negative. Pt's 02 sats on RA in low 90's; nocturnal 02 at 2L flow rate intranasally applied O/ N to keep sats> 92/ on exam today pt says CP continues relatively unchanged; o/ w mental stats gains sustained. ASSESSMENT/PLAN: lessening syndromal depression; persistent CP which was r/o'd for cardiac ischemia by ED evaluation last evening/ will increase Bupropion sr to 150 mg qam; discussed persistent CP with Dr Mendiola who will f/u with pt today ; no other meds changes or management changes 04/22/17 13:50 04/25/17 09:00 DAY UPDATE/EXAM: Nursing reports pt's mental status continues to clear syndromal depression; she was seen again 04/22 for persistent CP initially by Dr. Mendiola in f/u on the unit and then later in pm sent to the ED. Assessment again negative for cardiac ischemic and pain again thought to be non cardial chest wall pain and pt returned to the unit; in ED CTA chest and thorax negative for any acute vascular findings, troponin 1 again negative/ on direct exam pt states not having CP after return from ED and thru the weekend; does report having o/n evaluation of her pulse oximetry on RA; report shows SpO2 at 4% 81-85, 26% 86-89 , and 70% 90-95 - these results suggest pt a candidate for sleep study post DC for ? sleep apnea; o/w mood improving and pt in DC planning phase. Did have mechanical fall getting out of bed this AM and injured L great toe. ASSESSMENT/PLAN: resolving syndromal depression; ? fracture L great toe/ pending xray of L foot and great toe; no change in meds and management plan; proceed with DC planning 04/26/17 DAY UPDATE/EXAM: Nursing reports pt sustaining gains -- c/w cares/meds, engaging milieu and attending groups selectively; did fall getting out of bed and twisted left leg under her with resultant pain in L great toe xray done and report pending/ on direct exam mood minimally dysphoric, calm conversant; syndromal update, meds review, DC planning discussed in session focus. INSURANCE REVIEW WITH PSYCHIATRIST EXAMINER: coverage extended thru today ASSESSMENT/PLAN: marked improvement in syndromal depression; residual medical issues a/w DM management, respiratory management, pain management, ? great toe fx/ no change in meds or management; medical care review and preparation for DC and effective placement - consider [facility] or [facility] stepdown 04/27/17 11;00 DAY UPDATE/EXAM: Nursing reports that pt sustaining gains in resolving syndromal depression; pain remains sufficiently controlled including toe pain; wound healing well and pt able to do wound care; Metformin increased to 1000 mg bid and pt can avoid insulin use post DC; Dr Mendiola also lowered Lasix to 30 mg bid to preserve normotensive BP/ medical status reviewed with pt who presents with neutral mood and is cooperative and conversant; DC planning and her preparation for DC discussed in detail; pt responsive to reintegrative support in session. ASSESSMENT/PLAN: continues descriptive improvement and medical preparation for upcoming DC/ no change in meds or management o/t decrease in Lasix to 30 mg bid and increase in Metformin to 1000mg bid 04/28/17 11:44 DAY UPDATE/PLAN: Nursing reports pt remains stable and effectively in final phase of resolving residual syndromal depression and fully engaged in finalizing definitive DC plan. Pt's pain control is controlled, she has mastered her independent care of leg wound which is healing effectively; blood sugars are controlled in range of 100 - 200 on Metformin alone and SSI has been dc'd. Pt is mobile and will need portable oxygen tank and nasal cannula supplied for her to cover her supplemental oxygen needs post DC. Blood pressure is stable on current antihypertensives. DC plans are in process of being finalized which will include a scheduled intake with [facility] post DC to close on referral for her outpt psychiatric services. Medical care will be resumed at the [facility]/ on direct exam pt is calm, cooperative, conversant; reviewed current stage of DC planning and pt evidenced good understanding and alliance with see planning thru to closure, is working well with her Nursing Team and [employer]. ASSESSMENT/PLAN: sustaining improving course thru final DC planning phase/ no change in meds or management plan; anticipate closure on DC date with finalizing pt's placement 04/29/17 08:36 DAY ' UPDATE/EXAM: Nursing reports pt is productively engaging with her treatment plan - sustaining the gains made in resolving syndromal depression; medically stable using nocturnal 02 to maintain sats -does occasionally drop sats during the day to mid-upper 80's but has no respiratory complaints; we will consider scheduling 02 use for intervals during the day after checking sat on RA for several days/ on direct exam pt is calm, cooperative, conversant; in over- viewing course to date pt associates to the longer-term course of her depression and her loss of her CLH; this time reports more detail about knowing he had CABG emergently after admission for his CP; she reports not being allowed to see him in the ICU, multiple contact with older son after his DC and son's refusal to allow her to see her ; she states she had one fortuitous contact with elder son 10 months later and learned that was dementing but was still not allowed to see him; in this session she brought up the other major object loss of her best girlfriend whom she found in bed 2 yrs ago; pt teared up several times in the session, wanted to consider letting me call older son of her to advocate for her to update his status to reach "closure" as stated by the pt. Pt does understand we will collect clean- catch urine for pyuric UA reported yesterday ASSESSMENT/PLAN: sustaining gains and re-focussed on grief work/ no change in meds; culture urine; f/u grief work in AM and complete preparation for DC ? 05/0104/30/17 DAY ' UPDATE/EXAM: Objective: Vital Signs Temp Pulse Resp BP Pulse Ox 36.5 C 86 18 102/58 L 92 04/30/17 00:30 04/30/17 00:30 04/30/17 00:30 04/30/17 00:30 04/30/17 06:07 ICD10 Worksheet Patient Problems: Problems Problem Status Onset Abscess of abdominal wall Acute Abscess of thigh Acute Depression Acute Heroin addiction Acute MRSA (methicillin resistant Staphylococcus aureus) Acute 07/01/15 Urinary tract infection Acute
[2017-04-30] MEDS: FLUTICASONE/SALMETER 250/50MCG DISKUS IH SCH ×3 (08:42→23:01)
[2017-04-30] MEDS: buPROPion SR 100 MG TAB PO SCH (08:43)
[2017-04-30] MEDS: POTASSIUM CL 10 MEQ TAB PO SCH ×2 (08:43→14:33)
[2017-04-30] MEDS: DABIGATRAN ETEXILATE MESYL 150 MG CAP PO SCH ×2 (08:43→21:28)
[2017-04-30] MEDS: PANTOPRAZOLE SODIUM 40 MG TAB PO SCH ×2 (08:43→21:28)
[2017-04-30] MEDS: metFORMIN HCL 500 MG TAB PO SCH ×2 (08:44→17:14)
[2017-04-30] MEDS: FUROSEMIDE 20 MG TAB PO SCH ×2 (08:45→12:10)
[2017-04-30] MEDS: LISINOPRIL 10 MG TAB PO SCH (08:47)
[2017-04-30] MEDS: METOPROLOL TARTRATE 25 MG TAB PO SCH ×2 (08:48→21:29)
[2017-04-30] MEDS: ALBUTEROL 60 PUFFS/8 GM MDI IH PRN ×3 (08:49→23:57)
--- NOTE | 2017-04-30 11:08 | SOAPPROG ---
SOAP Progress Note Assessment/Plan: Assessment: Plan: 04/18/17 09:00 DAY UPDATE/EXAM: Nursing reports that pt slept poorly and had an interactive conflict with second shift RN about needing better pain control and wanting production control clerk doctor called; pt became angry and verbally abusive when pain concerns perceived as not addressed and also briefly barricaded self in room but did respond to limits and quieted down/ on direct exam pt presented as calm cooperative, conversant; pain issue discussed and I endorsed increase Methadone and having Dr Maury stark pt in f/u consultation tomorrow; also discussed trial of Bupropion and Trazodone for syndromal depression; pt more disclosing of 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 ASSESSMENT/PLAN: sustained syndromal depression, increase in chronic back pain, reactive regressive episode of anger last PM/ begin Bupropion SR 100 mg qam, Trazodone 50 mg hs, increase Methadone to 20 mg tid; management plan d/w Nursing in Rounds 04/19/17 11:30 DAY UPDATE/EXAM: Nursing report last 24 cycle has gone better- no reactive regressive behaviors, pain relief with titration of Methadone to 20 mg tid, less observable syndromal depression on direct exam pt's mood better, reports pain relief; more disclosure about fdc and short term history a/w syndromal depression; responsive to reintegrative support. 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; states she went on to operate a successful [employer] until medical disability worsened enough in 2008 that she had to stop and go on disability support; reviewed meds; discussed DC planning including [facility] f/u and housing options ASSESSMENT/PLAN: sustaining improving course/ no change in meds today but will consider updosing tomorrow - AD's; no change in management plan d/w Nursing in Rounds 04/21/17 DAY UPDATE/EXAM: nursing reports pt slept 5 hrs, continues to evidence descriptive gains in resolving syndromal depression; engaging effectively in milieu community and is supportive to selective patients/ on direct exam mood is less dysphoric, pt calm and conversant; focus on syndromal update, meds review, and DC planning; medical status discussed - pt states she usually sleeps in recliner secondary to COPD/ CHF; will order nocturna 02 prn to maintain sats >92 ASSESSMENT/PLAN: continues descriptive improvement/ will reassess meds for ? titrating Buproion in AM; monitor 02 sats 04/22/17 13:45 DAY UPDATE/EXAM: Nursing reports pt sustaining improving course but complicated by episode of chest pain in evening - pt taken to ED and cardiac ischemia r/o'd by direct exam, EKG negative for ischemic change, Troponin screen negative. Pt's 02 sats on RA in low 90's; nocturnal 02 at 2L flow rate intranasally applied O/ N to keep sats> 92/ on exam today pt says CP continues relatively unchanged; o/ w mental stats gains sustained. ASSESSMENT/PLAN: lessening syndromal depression; persistent CP which was r/o'd for cardiac ischemia by ED evaluation last evening/ will increase Bupropion sr to 150 mg qam; discussed persistent CP with Dr Mendiola who will f/u with pt today ; no other meds changes or management changes 04/22/17 13:50 04/25/17 09:00 DAY UPDATE/EXAM: Nursing reports pt's mental status continues to clear syndromal depression; she was seen again 04/22 for persistent CP initially by Dr. Mendiola in f/u on the unit and then later in pm sent to the ED. Assessment again negative for cardiac ischemic and pain again thought to be non cardial chest wall pain and pt returned to the unit; in ED CTA chest and thorax negative for any acute vascular findings, troponin 1 again negative/ on direct exam pt states not having CP after return from ED and thru the weekend; does report having o/n evaluation of her pulse oximetry on RA; report shows SpO2 at 4% 81-85, 26% 86-89 , and 70% 90-95 - these results suggest pt a candidate for sleep study post DC for ? sleep apnea; o/w mood improving and pt in DC planning phase. Did have mechanical fall getting out of bed this AM and injured L great toe. ASSESSMENT/PLAN: resolving syndromal depression; ? fracture L great toe/ pending xray of L foot and great toe; no change in meds and management plan; proceed with DC planning 04/26/17 DAY UPDATE/EXAM: Nursing reports pt sustaining gains -- c/w cares/meds, engaging milieu and attending groups selectively; did fall getting out of bed and twisted left leg under her with resultant pain in L great toe xray done and report pending/ on direct exam mood minimally dysphoric, calm conversant; syndromal update, meds review, DC planning discussed in session focus. INSURANCE REVIEW WITH PSYCHIATRIST EXAMINER: coverage extended thru today ASSESSMENT/PLAN: marked improvement in syndromal depression; residual medical issues a/w DM management, respiratory management, pain management, ? great toe fx/ no change in meds or management; medical care review and preparation for DC and effective placement - consider [facility] or [facility] stepdown 04/27/17 11;00 DAY UPDATE/EXAM: Nursing reports that pt sustaining gains in resolving syndromal depression; pain remains sufficiently controlled including toe pain; wound healing well and pt able to do wound care; Metformin increased to 1000 mg bid and pt can avoid insulin use post DC; Dr Mendiola also lowered Lasix to 30 mg bid to preserve normotensive BP/ medical status reviewed with pt who presents with neutral mood and is cooperative and conversant; DC planning and her preparation for DC discussed in detail; pt responsive to reintegrative support in session. ASSESSMENT/PLAN: continues descriptive improvement and medical preparation for upcoming DC/ no change in meds or management o/t decrease in Lasix to 30 mg bid and increase in Metformin to 1000mg bid 04/28/17 11:44 DAY UPDATE/PLAN: Nursing reports pt remains stable and effectively in final phase of resolving residual syndromal depression and fully engaged in finalizing definitive DC plan. Pt's pain control is controlled, she has mastered her independent care of leg wound which is healing effectively; blood sugars are controlled in range of 100 - 200 on Metformin alone and SSI has been dc'd. Pt is mobile and will need portable oxygen tank and nasal cannula supplied for her to cover her supplemental oxygen needs post DC. Blood pressure is stable on current antihypertensives. DC plans are in process of being finalized which will include a scheduled intake with [facility] post DC to close on referral for her outpt psychiatric services. Medical care will be resumed at the [facility]/ on direct exam pt is calm, cooperative, conversant; reviewed current stage of DC planning and pt evidenced good understanding and alliance with see planning thru to closure, is working well with her Nursing Team and Wildlife Photographer. ASSESSMENT/PLAN: sustaining improving course thru final DC planning phase/ no change in meds or management plan; anticipate closure on DC date with finalizing pt's placement 04/29/17 08:36 DAY ' UPDATE/EXAM: Nursing reports pt is productively engaging with her treatment plan - sustaining the gains made in resolving syndromal depression; medically stable using nocturnal 02 to maintain sats -does occasionally drop sats during the day to mid-upper 80's but has no respiratory complaints; we will consider scheduling 02 use for intervals during the day after checking sat on RA for several days/ on direct exam pt is calm, cooperative, conversant; in over- viewing course to date pt associates to the longer-term course of her depression and her loss of her CLH; this time reports more detail about knowing he had CABG emergently after admission for his CP; she reports not being allowed to see him in the ICU, multiple contact with older son after his DC and son's refusal to allow her to see her ; she states she had one fortuitous contact with elder son 10 months later and learned that was dementing but was still not allowed to see him; in this session she brought up the other major object loss of her best girlfriend whom she found in bed 2 yrs ago; pt teared up several times in the session, wanted to consider letting me call older son of her to advocate for her to update his status to reach "closure" as stated by the pt. Pt does understand we will collect clean- catch urine for pyuric UA reported yesterday ASSESSMENT/PLAN: sustaining gains and re-focussed on grief work/ no change in meds; culture urine; f/u grief work in AM and complete preparation for DC ? 05/0104/30/17 08:30 DAY ' UPDATE/EXAM: Nursing reports pt doing well with resolution of syndromal depression; BS 168; O2 sats 86 - 92 on RA/ on direct exam states she's hesitant to contact 's sons as she's not had contact for 3+ years and knows it would be conflictual; discussed need for closure on 's status (? if alive ) and what to do; also reviewed preparation for DC; meredith xs a/w ? UTI and knows culture results pending. ASSESSMENT/PLAN: sustaining gains in resolving syndromal depression and hopeful of DC too [facility] 05/02/ no change in meds or mangagement plan; will monitor BS's, ck culture results form clean-catch, review O2 sats and oxygen order with Nursing today Objective: Vital Signs Temp Pulse Resp BP Pulse Ox 36.4 C 75 18 111/57 L 88 L 04/30/17 08:46 04/30/17 08:46 04/30/17 00:30 04/30/17 08:46 04/30/17 08:46 ICD10 Worksheet Patient Problems: Problems Problem Status Onset Abscess of abdominal wall Acute Abscess of thigh Acute Depression Acute Heroin addiction Acute MRSA (methicillin resistant Staphylococcus aureus) Acute 07/01/15 Urinary tract infection Acute
[2017-04-30] MEDS: LORazepam 0.5 MG TAB PO PRN (12:12)
[2017-04-30] MEDS: traZODone 50 MG TAB PO SCH (21:29)
[2017-05-01] MEDS: METHADONE HCL 10 MG TAB PO SCH ×3 (05:06→20:45)
[2017-05-01] MEDS: PREGABALIN 50 MG CAP PO SCH ×3 (05:17→20:45)
[2017-05-01] MEDS: FUROSEMIDE 20 MG TAB PO SCH ×2 (06:46→12:11)
--- NOTE | 2017-05-01 07:09 | SOAPPROG ---
SOAP Progress Note Assessment/Plan: Assessment: Plan: 04/18/17 09:00 DAY UPDATE/EXAM: Nursing reports that pt slept poorly and had an interactive conflict with second shift RN about needing better pain control and wanting neonatal specialist doctor called; pt became angry and verbally abusive when pain concerns perceived as not addressed and also briefly barricaded self in room but did respond to limits and quieted down/ on direct exam pt presented as calm cooperative, conversant; pain issue discussed and I endorsed increase Methadone and having Dr Maury stark pt in f/u consultation tomorrow; also discussed trial of Bupropion and Trazodone for syndromal depression; pt more disclosing of 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 ASSESSMENT/PLAN: sustained syndromal depression, increase in chronic back pain, reactive regressive episode of anger last PM/ begin Bupropion SR 100 mg qam, Trazodone 50 mg hs, increase Methadone to 20 mg tid; management plan d/w Nursing in Rounds 04/19/17 11:30 DAY UPDATE/EXAM: Nursing report last 24 cycle has gone better- no reactive regressive behaviors, pain relief with titration of Methadone to 20 mg tid, less observable syndromal depression on direct exam pt's mood better, reports pain relief; more disclosure about detention and short term history a/w syndromal depression; responsive to reintegrative support. 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 [employer] until medical disability worsened enough in 2008 that she had to stop and go on disability support; reviewed meds; discussed DC planning including [facility] f/u and housing options ASSESSMENT/PLAN: sustaining improving course/ no change in meds today but will consider updosing tomorrow - AD's; no change in management plan d/w Nursing in Rounds 04/21/17 DAY UPDATE/EXAM: nursing reports pt slept 5 hrs, continues to evidence descriptive gains in resolving syndromal depression; engaging effectively in milieu community and is supportive to selective patients/ on direct exam mood is less dysphoric, pt calm and conversant; focus on syndromal update, meds review, and DC planning; medical status discussed - pt states she usually sleeps in recliner secondary to COPD/ CHF; will order nocturna 02 prn to maintain sats >92 ASSESSMENT/PLAN: continues descriptive improvement/ will reassess meds for ? titrating Buproion in AM; monitor 02 sats 04/22/17 13:45 DAY UPDATE/EXAM: Nursing reports pt sustaining improving course but complicated by episode of chest pain in evening - pt taken to ED and cardiac ischemia r/o'd by direct exam, EKG negative for ischemic change, Troponin screen negative. Pt's 02 sats on RA in low 90's; nocturnal 02 at 2L flow rate intranasally applied O/ N to keep sats> 92/ on exam today pt says CP continues relatively unchanged; o/ w mental stats gains sustained. ASSESSMENT/PLAN: lessening syndromal depression; persistent CP which was r/o'd for cardiac ischemia by ED evaluation last evening/ will increase Bupropion sr to 150 mg qam; discussed persistent CP with Dr Mendiola who will f/u with pt today ; no other meds changes or management changes 04/22/17 13:50 04/25/17 09:00 DAY UPDATE/EXAM: Nursing reports pt's mental status continues to clear syndromal depression; she was seen again 04/22 for persistent CP initially by Dr. Mendiola in f/u on the unit and then later in pm sent to the ED. Assessment again negative for cardiac ischemic and pain again thought to be non cardial chest wall pain and pt returned to the unit; in ED CTA chest and thorax negative for any acute vascular findings, troponin 1 again negative/ on direct exam pt states not having CP after return from ED and thru the weekend; does report having o/n evaluation of her pulse oximetry on RA; report shows SpO2 at 4% 81-85, 26% 86-89 , and 70% 90-95 - these results suggest pt a candidate for sleep study post DC for ? sleep apnea; o/w mood improving and pt in DC planning phase. Did have mechanical fall getting out of bed this AM and injured L great toe. ASSESSMENT/PLAN: resolving syndromal depression; ? fracture L great toe/ pending xray of L foot and great toe; no change in meds and management plan; proceed with DC planning 04/26/17 DAY UPDATE/EXAM: Nursing reports pt sustaining gains -- c/w cares/meds, engaging milieu and attending groups selectively; did fall getting out of bed and twisted left leg under her with resultant pain in L great toe xray done and report pending/ on direct exam mood minimally dysphoric, calm conversant; syndromal update, meds review, DC planning discussed in session focus. INSURANCE REVIEW WITH PSYCHIATRIST EXAMINER: coverage extended thru today ASSESSMENT/PLAN: marked improvement in syndromal depression; residual medical issues a/w DM management, respiratory management, pain management, ? great toe fx/ no change in meds or management; medical care review and preparation for DC and effective placement - consider [facility] or [facility] stepdown 04/27/17 11;00 DAY UPDATE/EXAM: Nursing reports that pt sustaining gains in resolving syndromal depression; pain remains sufficiently controlled including toe pain; wound healing well and pt able to do wound care; Metformin increased to 1000 mg bid and pt can avoid insulin use post DC; Dr Mendiola also lowered Lasix to 30 mg bid to preserve normotensive BP/ medical status reviewed with pt who presents with neutral mood and is cooperative and conversant; DC planning and her preparation for DC discussed in detail; pt responsive to reintegrative support in session. ASSESSMENT/PLAN: continues descriptive improvement and medical preparation for upcoming DC/ no change in meds or management o/t decrease in Lasix to 30 mg bid and increase in Metformin to 1000mg bid 04/28/17 11:44 DAY UPDATE/PLAN: Nursing reports pt remains stable and effectively in final phase of resolving residual syndromal depression and fully engaged in finalizing definitive DC plan. Pt's pain control is controlled, she has mastered her independent care of leg wound which is healing effectively; blood sugars are controlled in range of 100 - 200 on Metformin alone and SSI has been dc'd. Pt is mobile and will need portable oxygen tank and nasal cannula supplied for her to cover her supplemental oxygen needs post DC. Blood pressure is stable on current antihypertensives. DC plans are in process of being finalized which will include a scheduled intake with [facility] post DC to close on referral for her outpt psychiatric services. Medical care will be resumed at the [facility]/ on direct exam pt is calm, cooperative, conversant; reviewed current stage of DC planning and pt evidenced good understanding and alliance with see planning thru to closure, is working well with her Nursing Team and Jacquard Lace Weaver. ASSESSMENT/PLAN: sustaining improving course thru final DC planning phase/ no change in meds or management plan; anticipate closure on DC date with finalizing pt's placement 04/29/17 08:36 DAY ' UPDATE/EXAM: Nursing reports pt is productively engaging with her treatment plan - sustaining the gains made in resolving syndromal depression; medically stable using nocturnal 02 to maintain sats -does occasionally drop sats during the day to mid-upper 80's but has no respiratory complaints; we will consider scheduling 02 use for intervals during the day after checking sat on RA for several days/ on direct exam pt is calm, cooperative, conversant; in over- viewing course to date pt associates to the longer-term course of her depression and her loss of her CLH; this time reports more detail about knowing he had CABG emergently after admission for his CP; she reports not being allowed to see him in the ICU, multiple contact with older son after his DC and son's refusal to allow her to see her ; she states she had one fortuitous contact with elder son 10 months later and learned that was dementing but was still not allowed to see him; in this session she brought up the other major object loss of her best girlfriend whom she found in bed 2 yrs ago; pt teared up several times in the session, wanted to consider letting me call older son of her to advocate for her to update his status to reach "closure" as stated by the pt. Pt does understand we will collect clean- catch urine for pyuric UA reported yesterday ASSESSMENT/PLAN: sustaining gains and re-focussed on grief work/ no change in meds; culture urine; f/u grief work in AM and complete preparation for DC ? 05/0104/30/17 08:30 DAY ' UPDATE/EXAM: Nursing reports pt doing well with resolution of syndromal depression; BS 168; O2 sats 86 - 92 on RA/ on direct exam states she's hesitant to contact 's sons as she's not had contact for 3+ years and knows it would be conflictual; discussed need for closure on 's status (? if alive ) and what to do; also reviewed preparation for DC; meredith xs a/w ? UTI and knows culture results pending. ASSESSMENT/PLAN: sustaining gains in resolving syndromal depression and hopeful of DC to 05/02/ no change in meds or mangagement plan; will monitor BS's, ck culture results form clean-catch, review O2 sats and oxygen order with Nursing today 05/01/17 DAY ' UPDATE/EXAM: Objective: Vital Signs Temp Pulse Resp BP Pulse Ox 36.8 C 73 18 108/89 H 93 05/01/17 00:30 05/01/17 00:30 05/01/17 00:30 05/01/17 00:30 05/01/17 00:30 ICD10 Worksheet Patient Problems: Problems Problem Status Onset Abscess of abdominal wall Acute Abscess of thigh Acute Depression Acute Heroin addiction Acute MRSA (methicillin resistant Staphylococcus aureus) Acute 07/01/15 Urinary tract infection Acute
[2017-05-01] MEDS: buPROPion SR 100 MG TAB PO SCH (08:41)
[2017-05-01] MEDS: DABIGATRAN ETEXILATE MESYL 150 MG CAP PO SCH ×2 (08:41→20:45)
[2017-05-01] MEDS: POTASSIUM CL 10 MEQ TAB PO SCH ×2 (08:42→15:55)
[2017-05-01] MEDS: metFORMIN HCL 500 MG TAB PO SCH ×2 (08:42→17:03)
[2017-05-01] MEDS: PANTOPRAZOLE SODIUM 40 MG TAB PO SCH ×2 (08:42→20:45)
[2017-05-01] MEDS: METOPROLOL TARTRATE 25 MG TAB PO SCH ×2 (08:42→20:51)
[2017-05-01] MEDS: LISINOPRIL 10 MG TAB PO SCH (08:43)
[2017-05-01] MEDS: FLUTICASONE/SALMETER 250/50MCG DISKUS IH SCH ×2 (09:00→20:46)
[2017-05-01] MEDS: LORazepam 0.5 MG TAB PO PRN (11:00)
--- NOTE | 2017-05-01 14:00 | SOAPPROG ---
SOAP Progress Note Assessment/Plan: Assessment: Plan: 04/18/17 09:00 DAY UPDATE/EXAM: Nursing reports that pt slept poorly and had an interactive conflict with second shift RN about needing better pain control and wanting vice president of contracts doctor called; pt became angry and verbally abusive when pain concerns perceived as not addressed and also briefly barricaded self in room but did respond to limits and quieted down/ on direct exam pt presented as calm cooperative, conversant; pain issue discussed and I endorsed increase Methadone and having Dr Maury stark pt in f/u consultation tomorrow; also discussed trial of Bupropion and Trazodone for syndromal depression; pt more disclosing of 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 ASSESSMENT/PLAN: sustained syndromal depression, increase in chronic back pain, reactive regressive episode of anger last PM/ begin Bupropion SR 100 mg qam, Trazodone 50 mg hs, increase Methadone to 20 mg tid; management plan d/w Nursing in Rounds 04/19/17 11:30 DAY UPDATE/EXAM: Nursing report last 24 cycle has gone better- no reactive regressive behaviors, pain relief with titration of Methadone to 20 mg tid, less observable syndromal depression on direct exam pt's mood better, reports pain relief; more disclosure about prison and short term history a/w syndromal depression; responsive to reintegrative support. 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; states she went on to operate a successful [employer] until medical disability worsened enough in 2008 that she had to stop and go on disability support; reviewed meds; discussed DC planning including [facility] f/u and housing options ASSESSMENT/PLAN: sustaining improving course/ no change in meds today but will consider updosing tomorrow - AD's; no change in management plan d/w Nursing in Rounds 04/21/17 DAY UPDATE/EXAM: nursing reports pt slept 5 hrs, continues to evidence descriptive gains in resolving syndromal depression; engaging effectively in milieu community and is supportive to selective patients/ on direct exam mood is less dysphoric, pt calm and conversant; focus on syndromal update, meds review, and DC planning; medical status discussed - pt states she usually sleeps in recliner secondary to COPD/ CHF; will order nocturna 02 prn to maintain sats >92 ASSESSMENT/PLAN: continues descriptive improvement/ will reassess meds for ? titrating Buproion in AM; monitor 02 sats 04/22/17 13:45 DAY UPDATE/EXAM: Nursing reports pt sustaining improving course but complicated by episode of chest pain in evening - pt taken to ED and cardiac ischemia r/o'd by direct exam, EKG negative for ischemic change, Troponin screen negative. Pt's 02 sats on RA in low 90's; nocturnal 02 at 2L flow rate intranasally applied O/ N to keep sats> 92/ on exam today pt says CP continues relatively unchanged; o/ w mental stats gains sustained. ASSESSMENT/PLAN: lessening syndromal depression; persistent CP which was r/o'd for cardiac ischemia by ED evaluation last evening/ will increase Bupropion sr to 150 mg qam; discussed persistent CP with Dr Mendiola who will f/u with pt today ; no other meds changes or management changes 04/22/17 13:50 04/25/17 09:00 DAY UPDATE/EXAM: Nursing reports pt's mental status continues to clear syndromal depression; she was seen again 04/22 for persistent CP initially by Dr. Mendiola in f/u on the unit and then later in pm sent to the ED. Assessment again negative for cardiac ischemic and pain again thought to be non cardial chest wall pain and pt returned to the unit; in ED CTA chest and thorax negative for any acute vascular findings, troponin 1 again negative/ on direct exam pt states not having CP after return from ED and thru the weekend; does report having o/n evaluation of her pulse oximetry on RA; report shows SpO2 at 4% 81-85, 26% 86-89 , and 70% 90-95 - these results suggest pt a candidate for sleep study post DC for ? sleep apnea; o/w mood improving and pt in DC planning phase. Did have mechanical fall getting out of bed this AM and injured L great toe. ASSESSMENT/PLAN: resolving syndromal depression; ? fracture L great toe/ pending xray of L foot and great toe; no change in meds and management plan; proceed with DC planning 04/26/17 DAY UPDATE/EXAM: Nursing reports pt sustaining gains -- c/w cares/meds, engaging milieu and attending groups selectively; did fall getting out of bed and twisted left leg under her with resultant pain in L great toe xray done and report pending/ on direct exam mood minimally dysphoric, calm conversant; syndromal update, meds review, DC planning discussed in session focus. INSURANCE REVIEW WITH PSYCHIATRIST EXAMINER: coverage extended thru today ASSESSMENT/PLAN: marked improvement in syndromal depression; residual medical issues a/w DM management, respiratory management, pain management, ? great toe fx/ no change in meds or management; medical care review and preparation for DC and effective placement - consider [facility] or [facility] stepdown 04/27/17 11;00 DAY UPDATE/EXAM: Nursing reports that pt sustaining gains in resolving syndromal depression; pain remains sufficiently controlled including toe pain; wound healing well and pt able to do wound care; Metformin increased to 1000 mg bid and pt can avoid insulin use post DC; Dr Mendiola also lowered Lasix to 30 mg bid to preserve normotensive BP/ medical status reviewed with pt who presents with neutral mood and is cooperative and conversant; DC planning and her preparation for DC discussed in detail; pt responsive to reintegrative support in session. ASSESSMENT/PLAN: continues descriptive improvement and medical preparation for upcoming DC/ no change in meds or management o/t decrease in Lasix to 30 mg bid and increase in Metformin to 1000mg bid 04/28/17 11:44 DAY UPDATE/PLAN: Nursing reports pt remains stable and effectively in final phase of resolving residual syndromal depression and fully engaged in finalizing definitive DC plan. Pt's pain control is controlled, she has mastered her independent care of leg wound which is healing effectively; blood sugars are controlled in range of 100 - 200 on Metformin alone and SSI has been dc'd. Pt is mobile and will need portable oxygen tank and nasal cannula supplied for her to cover her supplemental oxygen needs post DC. Blood pressure is stable on current antihypertensives. DC plans are in process of being finalized which will include a scheduled intake with [facility] post DC to close on referral for her outpt psychiatric services. Medical care will be resumed at the [facility]/ on direct exam pt is calm, cooperative, conversant; reviewed current stage of DC planning and pt evidenced good understanding and alliance with see planning thru to closure, is working well with her Nursing Team and Small Appliance Assembly Supervisor. ASSESSMENT/PLAN: sustaining improving course thru final DC planning phase/ no change in meds or management plan; anticipate closure on DC date with finalizing pt's placement 04/29/17 08:36 DAY ' UPDATE/EXAM: Nursing reports pt is productively engaging with her treatment plan - sustaining the gains made in resolving syndromal depression; medically stable using nocturnal 02 to maintain sats -does occasionally drop sats during the day to mid-upper 80's but has no respiratory complaints; we will consider scheduling 02 use for intervals during the day after checking sat on RA for several days/ on direct exam pt is calm, cooperative, conversant; in over- viewing course to date pt associates to the longer-term course of her depression and her loss of her CLH; this time reports more detail about knowing he had CABG emergently after admission for his CP; she reports not being allowed to see him in the ICU, multiple contact with older son after his DC and son's refusal to allow her to see her ; she states she had one fortuitous contact with elder son 10 months later and learned that was dementing but was still not allowed to see him; in this session she brought up the other major object loss of her best girlfriend whom she found in bed 2 yrs ago; pt teared up several times in the session, wanted to consider letting me call older son of her to advocate for her to update his status to reach "closure" as stated by the pt. Pt does understand we will collect clean- catch urine for pyuric UA reported yesterday ASSESSMENT/PLAN: sustaining gains and re-focussed on grief work/ no change in meds; culture urine; f/u grief work in AM and complete preparation for DC ? 05/0104/30/17 08:30 DAY ' UPDATE/EXAM: Nursing reports pt doing well with resolution of syndromal depression; BS 168; O2 sats 86 - 92 on RA/ on direct exam states she's hesitant to contact 's sons as she's not had contact for 3+ years and knows it would be conflictual; discussed need for closure on 's status (? if alive ) and what to do; also reviewed preparation for DC; denies sx a/w ? UTI and knows culture results pending. ASSESSMENT/PLAN: sustaining gains in resolving syndromal depression and hopeful of DC to 05/02/ no change in meds or mangagement plan; will monitor BS's, ck culture results form clean-catch, review O2 sats and oxygen order with Nursing today 05/01/17 11:44 DAY ' UPDATE/EXAM: Nursing reports pt slept better; 02 sats still variably under 92 on RA; BS's under 200 off SSI, urine culture pending still/ on direct exam focus on updating medical issues; pt understands new order for standing 02; further discussion about her unreadiness to my contacting 's sons and positioning pt for psythotherapeutic work post DC anticipated tomorrow in PM to , affectively stable stable ASSESSMENT/PLAN: sustaining descriptive progress; need standing 02 post meals and overnight/ no change in meds; continue monitoring 02 sats on standing 02 per orders; finish preparation for DC Objective: Vital Signs Temp Pulse Resp BP Pulse Ox 36.3 C 70 18 117/73 85 L 05/01/17 07:46 05/01/17 08:42 05/01/17 00:30 05/01/17 08:43 05/01/17 11:18 ICD10 Worksheet Patient Problems: Problems Problem Status Onset Abscess of abdominal wall Acute Abscess of thigh Acute Depression Acute Heroin addiction Acute MRSA (methicillin resistant Staphylococcus aureus) Acute 07/01/15 Urinary tract infection Acute
[2017-05-01] MEDS: NITROFURANTOIN MACROBID 100 MG CAP PO SCH (20:45)
[2017-05-01] MEDS: traZODone 50 MG TAB PO SCH (20:45)
[2017-05-02] MEDS: PREGABALIN 50 MG CAP PO SCH ×3 (05:19→21:11)
[2017-05-02] MEDS: METHADONE HCL 10 MG TAB PO SCH ×3 (05:20→21:12)
[2017-05-02] MEDS: FUROSEMIDE 20 MG TAB PO SCH ×2 (06:01→13:21)
--- NOTE | 2017-05-02 06:37 | SOAPPROG ---
SOAP Progress Note Assessment/Plan: Assessment: Plan: 04/18/17 09:00 DAY UPDATE/EXAM: Nursing reports that pt slept poorly and had an interactive conflict with second shift RN about needing better pain control and wanting sanitation engineer doctor called; pt became angry and verbally abusive when pain concerns perceived as not addressed and also briefly barricaded self in room but did respond to limits and quieted down/ on direct exam pt presented as calm cooperative, conversant; pain issue discussed and I endorsed increase Methadone and having Dr Maury stark pt in f/u consultation tomorrow; also discussed trial of Bupropion and Trazodone for syndromal depression; pt more disclosing of 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 ASSESSMENT/PLAN: sustained syndromal depression, increase in chronic back pain, reactive regressive episode of anger last PM/ begin Bupropion SR 100 mg qam, Trazodone 50 mg hs, increase Methadone to 20 mg tid; management plan d/w Nursing in Rounds 04/19/17 11:30 DAY UPDATE/EXAM: Nursing report last 24 cycle has gone better- no reactive regressive behaviors, pain relief with titration of Methadone to 20 mg tid, less observable syndromal depression on direct exam pt's mood better, reports pain relief; more disclosure about prison and short term history a/w syndromal depression; responsive to reintegrative support. 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 [employer] until medical disability worsened enough in 2008 that she had to stop and go on disability support; reviewed meds; discussed DC planning including [facility] f/u and housing options ASSESSMENT/PLAN: sustaining improving course/ no change in meds today but will consider updosing tomorrow - AD's; no change in management plan d/w Nursing in Rounds 04/21/17 DAY UPDATE/EXAM: nursing reports pt slept 5 hrs, continues to evidence descriptive gains in resolving syndromal depression; engaging effectively in milieu community and is supportive to selective patients/ on direct exam mood is less dysphoric, pt calm and conversant; focus on syndromal update, meds review, and DC planning; medical status discussed - pt states she usually sleeps in recliner secondary to COPD/ CHF; will order nocturna 02 prn to maintain sats >92 ASSESSMENT/PLAN: continues descriptive improvement/ will reassess meds for ? titrating Buproion in AM; monitor 02 sats 04/22/17 13:45 DAY UPDATE/EXAM: Nursing reports pt sustaining improving course but complicated by episode of chest pain in evening - pt taken to ED and cardiac ischemia r/o'd by direct exam, EKG negative for ischemic change, Troponin screen negative. Pt's 02 sats on RA in low 90's; nocturnal 02 at 2L flow rate intranasally applied O/ N to keep sats> 92/ on exam today pt says CP continues relatively unchanged; o/ w mental stats gains sustained. ASSESSMENT/PLAN: lessening syndromal depression; persistent CP which was r/o'd for cardiac ischemia by ED evaluation last evening/ will increase Bupropion sr to 150 mg qam; discussed persistent CP with Dr Mendiola who will f/u with pt today ; no other meds changes or management changes 04/22/17 13:50 04/25/17 09:00 DAY UPDATE/EXAM: Nursing reports pt's mental status continues to clear syndromal depression; she was seen again 04/22 for persistent CP initially by Dr. Mendiola in f/u on the unit and then later in pm sent to the ED. Assessment again negative for cardiac ischemic and pain again thought to be non cardial chest wall pain and pt returned to the unit; in ED CTA chest and thorax negative for any acute vascular findings, troponin 1 again negative/ on direct exam pt states not having CP after return from ED and thru the weekend; does report having o/n evaluation of her pulse oximetry on RA; report shows SpO2 at 4% 81-85, 26% 86-89 , and 70% 90-95 - these results suggest pt a candidate for sleep study post DC for ? sleep apnea; o/w mood improving and pt in DC planning phase. Did have mechanical fall getting out of bed this AM and injured L great toe. ASSESSMENT/PLAN: resolving syndromal depression; ? fracture L great toe/ pending xray of L foot and great toe; no change in meds and management plan; proceed with DC planning 04/26/17 DAY UPDATE/EXAM: Nursing reports pt sustaining gains -- c/w cares/meds, engaging milieu and attending groups selectively; did fall getting out of bed and twisted left leg under her with resultant pain in L great toe xray done and report pending/ on direct exam mood minimally dysphoric, calm conversant; syndromal update, meds review, DC planning discussed in session focus. INSURANCE REVIEW WITH PSYCHIATRIST EXAMINER: coverage extended thru today ASSESSMENT/PLAN: marked improvement in syndromal depression; residual medical issues a/w DM management, respiratory management, pain management, ? great toe fx/ no change in meds or management; medical care review and preparation for DC and effective placement - consider [facility] or [facility] stepdown 04/27/17 11;00 DAY UPDATE/EXAM: Nursing reports that pt sustaining gains in resolving syndromal depression; pain remains sufficiently controlled including toe pain; wound healing well and pt able to do wound care; Metformin increased to 1000 mg bid and pt can avoid insulin use post DC; Dr Mendiola also lowered Lasix to 30 mg bid to preserve normotensive BP/ medical status reviewed with pt who presents with neutral mood and is cooperative and conversant; DC planning and her preparation for DC discussed in detail; pt responsive to reintegrative support in session. ASSESSMENT/PLAN: continues descriptive improvement and medical preparation for upcoming DC/ no change in meds or management o/t decrease in Lasix to 30 mg bid and increase in Metformin to 1000mg bid 04/28/17 11:44 DAY UPDATE/PLAN: Nursing reports pt remains stable and effectively in final phase of resolving residual syndromal depression and fully engaged in finalizing definitive DC plan. Pt's pain control is controlled, she has mastered her independent care of leg wound which is healing effectively; blood sugars are controlled in range of 100 - 200 on Metformin alone and SSI has been dc'd. Pt is mobile and will need portable oxygen tank and nasal cannula supplied for her to cover her supplemental oxygen needs post DC. Blood pressure is stable on current antihypertensives. DC plans are in process of being finalized which will include a scheduled intake with [facility] post DC to close on referral for her outpt psychiatric services. Medical care will be resumed at the [facility]/ on direct exam pt is calm, cooperative, conversant; reviewed current stage of DC planning and pt evidenced good understanding and alliance with see planning thru to closure, is working well with her Nursing Team and Cloth Stretcher. ASSESSMENT/PLAN: sustaining improving course thru final DC planning phase/ no change in meds or management plan; anticipate closure on DC date with finalizing pt's placement 04/29/17 08:36 DAY ' UPDATE/EXAM: Nursing reports pt is productively engaging with her treatment plan - sustaining the gains made in resolving syndromal depression; medically stable using nocturnal 02 to maintain sats -does occasionally drop sats during the day to mid-upper 80's but has no respiratory complaints; we will consider scheduling 02 use for intervals during the day after checking sat on RA for several days/ on direct exam pt is calm, cooperative, conversant; in over- viewing course to date pt associates to the longer-term course of her depression and her loss of her CL[facility]; this time reports more detail about knowing he had CABG emergently after admission for his CP; she reports not being allowed to see him in the ICU, multiple contact with older son after his DC and son's refusal to allow her to see her ; she states she had one fortuitous contact with elder son 10 months later and learned that was dementing but was still not allowed to see him; in this session she brought up the other major object loss of her best girlfriend whom she found in bed 2 yrs ago; pt teared up several times in the session, wanted to consider letting me call older son of her to advocate for her to update his status to reach "closure" as stated by the pt. Pt does understand we will collect clean- catch urine for pyuric UA reported yesterday ASSESSMENT/PLAN: sustaining gains and re-focussed on grief work/ no change in meds; culture urine; f/u grief work in AM and complete preparation for DC ? 05/0104/30/17 08:30 DAY UPDATE/EXAM: Nursing reports pt doing well with resolution of syndromal depression; BS 168; O2 sats 86 - 92 on RA/ on direct exam states she's hesitant to contact 's sons as she's not had contact for 3+ years and knows it would be conflictual; discussed need for closure on 's status (? if alive ) and what to do; also reviewed preparation for DC; denies sx a/w ? UTI and knows culture results pending. ASSESSMENT/PLAN: sustaining gains in resolving syndromal depression and hopeful of DC to 05/02/ no change in meds or mangagement plan; will monitor BS's, ck culture results form clean-catch, review O2 sats and oxygen order with Nursing today 05/01/17 11:44 DAY ' UPDATE/EXAM: Nursing reports pt slept better; 02 sats still variably under 92 on RA; BS's under 200 off SSI, urine culture pending still/ on direct exam focus on updating medical issues; pt understands new order for standing 02; further discussion about her unreadiness to my contacting 's sons and positioning pt for psychotherapeutic work post DC anticipated tomorrow in PM to , affectively stable ASSESSMENT/PLAN: sustaining descriptive progress; needs standing 02 post meals and overnight/ no change in meds; continue monitoring 02 sats on standing 02 per orders; finish preparation for DC; will cover presumed UTI with macrobid ds bid while waiting for culture results Objective: Vital Signs Temp Pulse Resp BP Pulse Ox 36.8 C 81 15 98/61 L 92 05/02/17 05:32 05/02/17 05:32 05/02/17 05:32 05/02/17 05:32 05/02/17 05:32 ICD10 Worksheet Patient Problems: Problems Problem Status Onset Abscess of abdominal wall Acute Abscess of thigh Acute Depression Acute Heroin addiction Acute MRSA (methicillin resistant Staphylococcus aureus) Acute 07/01/15 Urinary tract infection Acute
[2017-05-02] MEDS: DABIGATRAN ETEXILATE MESYL 150 MG CAP PO SCH ×2 (08:59→21:12)
[2017-05-02] MEDS: PANTOPRAZOLE SODIUM 40 MG TAB PO SCH ×2 (09:00→21:12)
[2017-05-02] MEDS: buPROPion SR 100 MG TAB PO SCH (09:00)
[2017-05-02] MEDS: LISINOPRIL 10 MG TAB PO SCH (09:06)
[2017-05-02] MEDS: NITROFURANTOIN MACROBID 100 MG CAP PO SCH ×2 (09:06→21:12)
[2017-05-02] MEDS: POTASSIUM CL 10 MEQ TAB PO SCH ×2 (09:06→13:25)
[2017-05-02] MEDS: metFORMIN HCL 500 MG TAB PO SCH ×2 (09:06→16:44)
[2017-05-02] MEDS: METOPROLOL TARTRATE 25 MG TAB PO SCH ×2 (09:06→21:28)
[2017-05-02] MEDS: FLUTICASONE/SALMETER 250/50MCG DISKUS IH SCH ×2 (09:08→21:13)
[2017-05-02] MEDS: LORazepam 0.5 MG TAB PO PRN (09:09)
--- NOTE | 2017-05-02 13:08 | SOAPPROG ---
SOAP Progress Note Assessment/Plan: Assessment: Plan: 04/18/17 09:00 DAY UPDATE/EXAM: Nursing reports that pt slept poorly and had an interactive conflict with second shift RN about needing better pain control and wanting carbon dioxide operator doctor called; pt became angry and verbally abusive when pain concerns perceived as not addressed and also briefly barricaded self in room but did respond to limits and quieted down/ on direct exam pt presented as calm cooperative, conversant; pain issue discussed and I endorsed increase Methadone and having Dr Maury stark pt in f/u consultation tomorrow; also discussed trial of Bupropion and Trazodone for syndromal depression; pt more disclosing of 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 ASSESSMENT/PLAN: sustained syndromal depression, increase in chronic back pain, reactive regressive episode of anger last PM/ begin Bupropion SR 100 mg qam, Trazodone 50 mg hs, increase Methadone to 20 mg tid; management plan d/w Nursing in Rounds 04/19/17 11:30 DAY UPDATE/EXAM: Nursing report last 24 cycle has gone better- no reactive regressive behaviors, pain relief with titration of Methadone to 20 mg tid, less observable syndromal depression on direct exam pt's mood better, reports pain relief; more disclosure about residential and short term history a/w syndromal depression; responsive to reintegrative support. 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 [employer] until medical disability worsened enough in 2008 that she had to stop and go on disability support; reviewed meds; discussed DC planning including [facility] f/u and housing options ASSESSMENT/PLAN: sustaining improving course/ no change in meds today but will consider updosing tomorrow - AD's; no change in management plan d/w Nursing in Rounds 04/21/17 DAY UPDATE/EXAM: nursing reports pt slept 5 hrs, continues to evidence descriptive gains in resolving syndromal depression; engaging effectively in milieu community and is supportive to selective patients/ on direct exam mood is less dysphoric, pt calm and conversant; focus on syndromal update, meds review, and DC planning; medical status discussed - pt states she usually sleeps in recliner secondary to COPD/ CHF; will order nocturna 02 prn to maintain sats >92 ASSESSMENT/PLAN: continues descriptive improvement/ will reassess meds for ? titrating Buproion in AM; monitor 02 sats 04/22/17 13:45 DAY UPDATE/EXAM: Nursing reports pt sustaining improving course but complicated by episode of chest pain in evening - pt taken to ED and cardiac ischemia r/o'd by direct exam, EKG negative for ischemic change, Troponin screen negative. Pt's 02 sats on RA in low 90's; nocturnal 02 at 2L flow rate intranasally applied O/ N to keep sats> 92/ on exam today pt says CP continues relatively unchanged; o/ w mental stats gains sustained. ASSESSMENT/PLAN: lessening syndromal depression; persistent CP which was r/o'd for cardiac ischemia by ED evaluation last evening/ will increase Bupropion sr to 150 mg qam; discussed persistent CP with Dr Mendiola who will f/u with pt today ; no other meds changes or management changes 04/22/17 13:50 04/25/17 09:00 DAY UPDATE/EXAM: Nursing reports pt's mental status continues to clear syndromal depression; she was seen again 04/22 for persistent CP initially by Dr. Mendiola in f/u on the unit and then later in pm sent to the ED. Assessment again negative for cardiac ischemic and pain again thought to be non cardial chest wall pain and pt returned to the unit; in ED CTA chest and thorax negative for any acute vascular findings, troponin 1 again negative/ on direct exam pt states not having CP after return from ED and thru the weekend; does report having o/n evaluation of her pulse oximetry on RA; report shows SpO2 at 4% 81-85, 26% 86-89 , and 70% 90-95 - these results suggest pt a candidate for sleep study post DC for ? sleep apnea; o/w mood improving and pt in DC planning phase. Did have mechanical fall getting out of bed this AM and injured L great toe. ASSESSMENT/PLAN: resolving syndromal depression; ? fracture L great toe/ pending xray of L foot and great toe; no change in meds and management plan; proceed with DC planning 04/26/17 DAY UPDATE/EXAM: Nursing reports pt sustaining gains -- c/w cares/meds, engaging milieu and attending groups selectively; did fall getting out of bed and twisted left leg under her with resultant pain in L great toe xray done and report pending/ on direct exam mood minimally dysphoric, calm conversant; syndromal update, meds review, DC planning discussed in session focus. INSURANCE REVIEW WITH PSYCHIATRIST EXAMINER: coverage extended thru today ASSESSMENT/PLAN: marked improvement in syndromal depression; residual medical issues a/w DM management, respiratory management, pain management, ? great toe fx/ no change in meds or management; medical care review and preparation for DC and effective placement - consider [facility] or [facility] stepdown 04/27/17 11;00 DAY UPDATE/EXAM: Nursing reports that pt sustaining gains in resolving syndromal depression; pain remains sufficiently controlled including toe pain; wound healing well and pt able to do wound care; Metformin increased to 1000 mg bid and pt can avoid insulin use post DC; Dr Mendiola also lowered Lasix to 30 mg bid to preserve normotensive BP/ medical status reviewed with pt who presents with neutral mood and is cooperative and conversant; DC planning and her preparation for DC discussed in detail; pt responsive to reintegrative support in session. ASSESSMENT/PLAN: continues descriptive improvement and medical preparation for upcoming DC/ no change in meds or management o/t decrease in Lasix to 30 mg bid and increase in Metformin to 1000mg bid 04/28/17 11:44 DAY UPDATE/PLAN: Nursing reports pt remains stable and effectively in final phase of resolving residual syndromal depression and fully engaged in finalizing definitive DC plan. Pt's pain control is controlled, she has mastered her independent care of leg wound which is healing effectively; blood sugars are controlled in range of 100 - 200 on Metformin alone and SSI has been dc'd. Pt is mobile and will need portable oxygen tank and nasal cannula supplied for her to cover her supplemental oxygen needs post DC. Blood pressure is stable on current antihypertensives. DC plans are in process of being finalized which will include a scheduled intake with [facility] post DC to close on referral for her outpt psychiatric services. Medical care will be resumed at the [facility]/ on direct exam pt is calm, cooperative, conversant; reviewed current stage of DC planning and pt evidenced good understanding and alliance with see planning thru to closure, is working well with her Nursing Team and Planning Technician. ASSESSMENT/PLAN: sustaining improving course thru final DC planning phase/ no change in meds or management plan; anticipate closure on DC date with finalizing pt's placement 04/29/17 08:36 DAY ' UPDATE/EXAM: Nursing reports pt is productively engaging with her treatment plan - sustaining the gains made in resolving syndromal depression; medically stable using nocturnal 02 to maintain sats -does occasionally drop sats during the day to mid-upper 80's but has no respiratory complaints; we will consider scheduling 02 use for intervals during the day after checking sat on RA for several days/ on direct exam pt is calm, cooperative, conversant; in over- viewing course to date pt associates to the longer-term course of her depression and her loss of her CL[facility]; this time reports more detail about knowing he had CABG emergently after admission for his CP; she reports not being allowed to see him in the ICU, multiple contact with older son after his DC and son's refusal to allow her to see her ; she states she had one fortuitous contact with elder son 10 months later and learned that was dementing but was still not allowed to see him; in this session she brought up the other major object loss of her best girlfriend whom she found in bed 2 yrs ago; pt teared up several times in the session, wanted to consider letting me call older son of her to advocate for her to update his status to reach "closure" as stated by the pt. Pt does understand we will collect clean- catch urine for pyuric UA reported yesterday ASSESSMENT/PLAN: sustaining gains and re-focussed on grief work/ no change in meds; culture urine; f/u grief work in AM and complete preparation for DC ? 05/0104/30/17 08:30 DAY UPDATE/EXAM: Nursing reports pt doing well with resolution of syndromal depression; BS 168; O2 sats 86 - 92 on RA/ on direct exam states she's hesitant to contact 's sons as she's not had contact for 3+ years and knows it would be conflictual; discussed need for closure on 's status (? if alive ) and what to do; also reviewed preparation for DC; denies sx a/w ? UTI and knows culture results pending. ASSESSMENT/PLAN: sustaining gains in resolving syndromal depression and hopeful of DC to 05/02/ no change in meds or mangagement plan; will monitor BS's, ck culture results form clean-catch, review O2 sats and oxygen order with Nursing today 05/01/17 11:44 DAY UPDATE/EXAM: Nursing reports pt slept better; 02 sats still variably under 92 on RA; BS's under 200 off SSI, urine culture pending still/ on direct exam focus on updating medical issues; pt understands new order for standing 02; further discussion about her unreadiness to my contacting 's sons and positioning pt for psychotherapeutic work post DC anticipated tomorrow in PM to , affectively stable ASSESSMENT/PLAN: sustaining descriptive progress; needs standing 02 post meals and overnight/ no change in meds; continue monitoring 02 sats on standing 02 per orders; finish preparation for DC; will cover presumed UTI with macrobid ds bid while waiting for culture results 05/02/17 13:02 Discharge Note DAY UPDATE/EXAM: Nursing reports pt is maintaining affective stability and medical stability; cooperatively engaging her Care Plan;/ on direct exam pt presents as calm, cooperative, conversant; focuses effectively on course overview identifying gains and goals post dc a/w medical and psychiatric followup; meds again reviewed; pt deemed sufficiently stable for DC ASSESSMENT.PLAN: DC today to stepdown to [facility] Psychiatric f/u with [facility] for intake and triage Medical f/u with [facility] and provider Team Medications at DC as referenced - 30 day prescriptions at DC see Discharge summary ADDENDUM: Oxygen benefits pt's dx of COPD by im; proving her daily life adaptation including capacity to ambulate comfortably, prevent falls secondary to low oxygenation, and facilitate optimal cognitive lucidity; 02 prescribed as continuous 02 flow at rate of 2L/min delivered per nasal cannula via mobile portable tank 24 hr/day. Objective: Vital Signs Temp Pulse Resp BP Pulse Ox 36.8 C 81 15 98/61 L 92 05/02/17 05:32 05/02/17 05:32 05/02/17 05:32 05/02/17 05:32 05/02/17 05:32 ICD10 Worksheet Patient Problems: Problems Problem Status Onset Abscess of abdominal wall Acute Abscess of thigh Acute Depression Acute Heroin addiction Acute MRSA (methicillin resistant Staphylococcus aureus) Acute 07/01/15 Urinary tract infection Acute
[2017-05-02] MEDS: traZODone 50 MG TAB PO SCH (21:12)
[2017-05-02] MEDS: PROMETHAZINE HCL 25 MG TAB PO PRN (21:57)
[2017-05-03] MEDS: LORazepam 0.5 MG TAB PO PRN ×2 (00:07→16:59)
[2017-05-03] MEDS: METHADONE HCL 10 MG TAB PO SCH ×2 (05:12→12:52)
[2017-05-03] MEDS: PREGABALIN 50 MG CAP PO SCH ×2 (05:12→12:52)
[2017-05-03] MEDS: FUROSEMIDE 20 MG TAB PO SCH ×2 (06:09→12:51)
--- NOTE | 2017-05-03 06:54 | SOAPPROG ---
SOAP Progress Note Assessment/Plan: Assessment: Plan: 04/18/17 09:00 DAY UPDATE/EXAM: Nursing reports that pt slept poorly and had an interactive conflict with second shift RN about needing better pain control and wanting prosthodontist/owner doctor called; pt became angry and verbally abusive when pain concerns perceived as not addressed and also briefly barricaded self in room but did respond to limits and quieted down/ on direct exam pt presented as calm cooperative, conversant; pain issue discussed and I endorsed increase Methadone and having Dr Maury stark pt in f/u consultation tomorrow; also discussed trial of Bupropion and Trazodone for syndromal depression; pt more disclosing of 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 ASSESSMENT/PLAN: sustained syndromal depression, increase in chronic back pain, reactive regressive episode of anger last PM/ begin Bupropion SR 100 mg qam, Trazodone 50 mg hs, increase Methadone to 20 mg tid; management plan d/w Nursing in Rounds 04/19/17 11:30 DAY UPDATE/EXAM: Nursing report last 24 cycle has gone better- no reactive regressive behaviors, pain relief with titration of Methadone to 20 mg tid, less observable syndromal depression on direct exam pt's mood better, reports pain relief; more disclosure about fci and short term history a/w syndromal depression; responsive to reintegrative support. 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 worsened enough in 2008 that she had to stop and go on disability support; reviewed meds; discussed DC planning including [facility] f/u and housing options ASSESSMENT/PLAN: sustaining improving course/ no change in meds today but will consider updosing tomorrow - AD's; no change in management plan d/w Nursing in Rounds 04/21/17 DAY UPDATE/EXAM: nursing reports pt slept 5 hrs, continues to evidence descriptive gains in resolving syndromal depression; engaging effectively in milieu community and is supportive to selective patients/ on direct exam mood is less dysphoric, pt calm and conversant; focus on syndromal update, meds review, and DC planning; medical status discussed - pt states she usually sleeps in recliner secondary to COPD/ CHF; will order nocturna 02 prn to maintain sats >92 ASSESSMENT/PLAN: continues descriptive improvement/ will reassess meds for ? titrating Buproion in AM; monitor 02 sats 04/22/17 13:45 DAY UPDATE/EXAM: Nursing reports pt sustaining improving course but complicated by episode of chest pain in evening - pt taken to ED and cardiac ischemia r/o'd by direct exam, EKG negative for ischemic change, Troponin screen negative. Pt's 02 sats on RA in low 90's; nocturnal 02 at 2L flow rate intranasally applied O/ N to keep sats> 92/ on exam today pt says CP continues relatively unchanged; o/ w mental stats gains sustained. ASSESSMENT/PLAN: lessening syndromal depression; persistent CP which was r/o'd for cardiac ischemia by ED evaluation last evening/ will increase Bupropion sr to 150 mg qam; discussed persistent CP with Dr Mendiola who will f/u with pt today ; no other meds changes or management changes 04/22/17 13:50 04/25/17 09:00 DAY UPDATE/EXAM: Nursing reports pt's mental status continues to clear syndromal depression; she was seen again 04/22 for persistent CP initially by Dr. Mendiola in f/u on the unit and then later in pm sent to the ED. Assessment again negative for cardiac ischemic and pain again thought to be non cardial chest wall pain and pt returned to the unit; in ED CTA chest and thorax negative for any acute vascular findings, troponin 1 again negative/ on direct exam pt states not having CP after return from ED and thru the weekend; does report having o/n evaluation of her pulse oximetry on RA; report shows SpO2 at 4% 81-85, 26% 86-89 , and 70% 90-95 - these results suggest pt a candidate for sleep study post DC for ? sleep apnea; o/w mood improving and pt in DC planning phase. Did have mechanical fall getting out of bed this AM and injured L great toe. ASSESSMENT/PLAN: resolving syndromal depression; ? fracture L great toe/ pending xray of L foot and great toe; no change in meds and management plan; proceed with DC planning 04/26/17 DAY UPDATE/EXAM: Nursing reports pt sustaining gains -- c/w cares/meds, engaging milieu and attending groups selectively; did fall getting out of bed and twisted left leg under her with resultant pain in L great toe xray done and report pending/ on direct exam mood minimally dysphoric, calm conversant; syndromal update, meds review, DC planning discussed in session focus. INSURANCE REVIEW WITH PSYCHIATRIST EXAMINER: coverage extended thru today ASSESSMENT/PLAN: marked improvement in syndromal depression; residual medical issues a/w DM management, respiratory management, pain management, ? great toe fx/ no change in meds or management; medical care review and preparation for DC and effective placement - consider [facility] or [facility] stepdown 04/27/17 11;00 DAY UPDATE/EXAM: Nursing reports that pt sustaining gains in resolving syndromal depression; pain remains sufficiently controlled including toe pain; wound healing well and pt able to do wound care; Metformin increased to 1000 mg bid and pt can avoid insulin use post DC; Dr Mendiola also lowered Lasix to 30 mg bid to preserve normotensive BP/ medical status reviewed with pt who presents with neutral mood and is cooperative and conversant; DC planning and her preparation for DC discussed in detail; pt responsive to reintegrative support in session. ASSESSMENT/PLAN: continues descriptive improvement and medical preparation for upcoming DC/ no change in meds or management o/t decrease in Lasix to 30 mg bid and increase in Metformin to 1000mg bid 04/28/17 11:44 DAY UPDATE/PLAN: Nursing reports pt remains stable and effectively in final phase of resolving residual syndromal depression and fully engaged in finalizing definitive DC plan. Pt's pain control is controlled, she has mastered her independent care of leg wound which is healing effectively; blood sugars are controlled in range of 100 - 200 on Metformin alone and SSI has been dc'd. Pt is mobile and will need portable oxygen tank and nasal cannula supplied for her to cover her supplemental oxygen needs post DC. Blood pressure is stable on current antihypertensives. DC plans are in process of being finalized which will include a scheduled intake with [facility] post DC to close on referral for her outpt psychiatric services. Medical care will be resumed at the [facility]/ on direct exam pt is calm, cooperative, conversant; reviewed current stage of DC planning and pt evidenced good understanding and alliance with see planning thru to closure, is working well with her Nursing Team and Data Reporting Analyst. ASSESSMENT/PLAN: sustaining improving course thru final DC planning phase/ no change in meds or management plan; anticipate closure on DC date with finalizing pt's placement 04/29/17 08:36 DAY ' UPDATE/EXAM: Nursing reports pt is productively engaging with her treatment plan - sustaining the gains made in resolving syndromal depression; medically stable using nocturnal 02 to maintain sats -does occasionally drop sats during the day to mid-upper 80's but has no respiratory complaints; we will consider scheduling 02 use for intervals during the day after checking sat on RA for several days/ on direct exam pt is calm, cooperative, conversant; in over- viewing course to date pt associates to the longer-term course of her depression and her loss of her CL[facility]; this time reports more detail about knowing he had CABG emergently after admission for his CP; she reports not being allowed to see him in the ICU, multiple contact with older son after his DC and son's refusal to allow her to see her ; she states she had one fortuitous contact with elder son 10 months later and learned that was dementing but was still not allowed to see him; in this session she brought up the other major object loss of her best girlfriend whom she found in bed 2 yrs ago; pt teared up several times in the session, wanted to consider letting me call older son of her to advocate for her to update his status to reach "closure" as stated by the pt. Pt does understand we will collect clean- catch urine for pyuric UA reported yesterday ASSESSMENT/PLAN: sustaining gains and re-focussed on grief work/ no change in meds; culture urine; f/u grief work in AM and complete preparation for DC ? 05/0104/30/17 08:30 DAY UPDATE/EXAM: Nursing reports pt doing well with resolution of syndromal depression; BS 168; O2 sats 86 - 92 on RA/ on direct exam states she's hesitant to contact 's sons as she's not had contact for 3+ years and knows it would be conflictual; discussed need for closure on 's status (? if alive ) and what to do; also reviewed preparation for DC; denies sx a/w ? UTI and knows culture results pending. ASSESSMENT/PLAN: sustaining gains in resolving syndromal depression and hopeful of DC to 05/02/ no change in meds or mangagement plan; will monitor BS's, ck culture results form clean-catch, review O2 sats and oxygen order with Nursing today 05/01/17 11:44 DAY UPDATE/EXAM: Nursing reports pt slept better; 02 sats still variably under 92 on RA; BS's under 200 off SSI, urine culture pending still/ on direct exam focus on updating medical issues; pt understands new order for standing 02; further discussion about her unreadiness to my contacting 's sons and positioning pt for psychotherapeutic work post DC anticipated tomorrow in PM to , affectively stable ASSESSMENT/PLAN: sustaining descriptive progress; needs standing 02 post meals and overnight/ no change in meds; continue monitoring 02 sats on standing 02 per orders; finish preparation for DC; will cover presumed UTI with macrobid ds bid while waiting for culture results 05/02/17 13:02 Discharge Note DAY UPDATE/EXAM: Nursing reports pt is maintaining affective stability and medical stability; cooperatively engaging her Care Plan;/ on direct exam pt presents as calm, cooperative, conversant; focuses effectively on course overview identifying gains and goals post dc a/w medical and psychiatric followup; meds again reviewed; pt deemed sufficiently stable for DC ASSESSMENT.PLAN: DC today to stepdown to [facility] f/u with [facility] for intake and triage Medical f/u with [facility] and provider Team Medications at DC as referenced - 30 day prescriptions at DC see Discharge summary ADDENDUM: Oxygen benefits pt's dx of COPD by improving her daily life adaptation including capacity to ambulate comfortably, prevent falls secondary to low oxygenation, and facilitate optimal cognitive lucidity; 02 prescribed as continuous 02 flow at rate of 2L/min delivered per nasal cannula via mobile portable tank 24 hr/day. 05/03/17 DAY ' UPDATE/EXAM: Objective: Vital Signs Temp Pulse Resp BP Pulse Ox 36.5 C 85 16 126/68 H 94 05/03/17 00:30 05/03/17 00:30 05/03/17 00:30 05/03/17 00:30 05/03/17 00:30 Microbiology 04/30/17 13:50 Urine Culture - Final Urine,Clean Catch [place] Types ICD10 Worksheet Patient Problems: Problems Problem Status Onset Abscess of abdominal wall Acute Abscess of thigh Acute Depression Acute Heroin addiction Acute MRSA (methicillin resistant Staphylococcus aureus) Acute 07/01/15 Urinary tract infection Acute
[2017-05-03] MEDS: PROMETHAZINE HCL 25 MG TAB PO PRN (08:16)
[2017-05-03] MEDS: buPROPion SR 100 MG TAB PO SCH (09:11)
[2017-05-03] MEDS: NITROFURANTOIN MACROBID 100 MG CAP PO SCH (09:12)
[2017-05-03] MEDS: POTASSIUM CL 10 MEQ TAB PO SCH ×2 (09:16→12:51)
[2017-05-03] MEDS: DABIGATRAN ETEXILATE MESYL 150 MG CAP PO SCH (09:16)
[2017-05-03] MEDS: PANTOPRAZOLE SODIUM 40 MG TAB PO SCH (09:16)
[2017-05-03] MEDS: METOPROLOL TARTRATE 25 MG TAB PO SCH (09:17)
[2017-05-03] MEDS: LISINOPRIL 10 MG TAB PO SCH (09:17)
[2017-05-03] MEDS: metFORMIN HCL 500 MG TAB PO SCH (09:18)
[2017-05-03] MEDS: FLUTICASONE/SALMETER 250/50MCG DISKUS IH SCH (09:22)
--- NOTE | 2017-05-03 15:47 | SOAPPROG ---
SOAP Progress Note Assessment/Plan: Assessment: Plan: 04/18/17 09:00 DAY UPDATE/EXAM: Nursing reports that pt slept poorly and had an interactive conflict with second shift RN about needing better pain control and wanting audio production manager doctor called; pt became angry and verbally abusive when pain concerns perceived as not addressed and also briefly barricaded self in room but did respond to limits and quieted down/ on direct exam pt presented as calm cooperative, conversant; pain issue discussed and I endorsed increase Methadone and having Dr Maury stark pt in f/u consultation tomorrow; also discussed trial of Bupropion and Trazodone for syndromal depression; pt more disclosing of 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 ASSESSMENT/PLAN: sustained syndromal depression, increase in chronic back pain, reactive regressive episode of anger last PM/ begin Bupropion SR 100 mg qam, Trazodone 50 mg hs, increase Methadone to 20 mg tid; management plan d/w Nursing in Rounds 04/19/17 11:30 DAY UPDATE/EXAM: Nursing report last 24 cycle has gone better- no reactive regressive behaviors, pain relief with titration of Methadone to 20 mg tid, less observable syndromal depression on direct exam pt's mood better, reports pain relief; more disclosure about [facility] and short term history a/w syndromal depression; responsive to reintegrative support. 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 [employer] until medical disability worsened enough in 2008 that she had to stop and go on disability support; reviewed meds; discussed DC planning including [facility] f/u and housing options ASSESSMENT/PLAN: sustaining improving course/ no change in meds today but will consider updosing tomorrow - AD's; no change in management plan d/w Nursing in Rounds 04/21/17 DAY UPDATE/EXAM: nursing reports pt slept 5 hrs, continues to evidence descriptive gains in resolving syndromal depression; engaging effectively in milieu community and is supportive to selective patients/ on direct exam mood is less dysphoric, pt calm and conversant; focus on syndromal update, meds review, and DC planning; medical status discussed - pt states she usually sleeps in recliner secondary to COPD/ CHF; will order nocturna 02 prn to maintain sats >92 ASSESSMENT/PLAN: continues descriptive improvement/ will reassess meds for ? titrating Buproion in AM; monitor 02 sats 04/22/17 13:45 DAY UPDATE/EXAM: Nursing reports pt sustaining improving course but complicated by episode of chest pain in evening - pt taken to ED and cardiac ischemia r/o'd by direct exam, EKG negative for ischemic change, Troponin screen negative. Pt's 02 sats on RA in low 90's; nocturnal 02 at 2L flow rate intranasally applied O/ N to keep sats> 92/ on exam today pt says CP continues relatively unchanged; o/ w mental stats gains sustained. ASSESSMENT/PLAN: lessening syndromal depression; persistent CP which was r/o'd for cardiac ischemia by ED evaluation last evening/ will increase Bupropion sr to 150 mg qam; discussed persistent CP with Dr Mendiola who will f/u with pt today ; no other meds changes or management changes 04/22/17 13:50 04/25/17 09:00 DAY UPDATE/EXAM: Nursing reports pt's mental status continues to clear syndromal depression; she was seen again 04/22 for persistent CP initially by Dr. Mendiola in f/u on the unit and then later in pm sent to the ED. Assessment again negative for cardiac ischemic and pain again thought to be non cardial chest wall pain and pt returned to the unit; in ED CTA chest and thorax negative for any acute vascular findings, troponin 1 again negative/ on direct exam pt states not having CP after return from ED and thru the weekend; does report having o/n evaluation of her pulse oximetry on RA; report shows SpO2 at 4% 81-85, 26% 86-89 , and 70% 90-95 - these results suggest pt a candidate for sleep study post DC for ? sleep apnea; o/w mood improving and pt in DC planning phase. Did have mechanical fall getting out of bed this AM and injured L great toe. ASSESSMENT/PLAN: resolving syndromal depression; ? fracture L great toe/ pending xray of L foot and great toe; no change in meds and management plan; proceed with DC planning 04/26/17 DAY UPDATE/EXAM: Nursing reports pt sustaining gains -- c/w cares/meds, engaging milieu and attending groups selectively; did fall getting out of bed and twisted left leg under her with resultant pain in L great toe xray done and report pending/ on direct exam mood minimally dysphoric, calm conversant; syndromal update, meds review, DC planning discussed in session focus. INSURANCE REVIEW WITH PSYCHIATRIST EXAMINER: coverage extended thru today ASSESSMENT/PLAN: marked improvement in syndromal depression; residual medical issues a/w DM management, respiratory management, pain management, ? great toe fx/ no change in meds or management; medical care review and preparation for DC and effective placement - consider [facility] or [facility] stepdown 04/27/17 11;00 DAY UPDATE/EXAM: Nursing reports that pt sustaining gains in resolving syndromal depression; pain remains sufficiently controlled including toe pain; wound healing well and pt able to do wound care; Metformin increased to 1000 mg bid and pt can avoid insulin use post DC; Dr Mendiola also lowered Lasix to 30 mg bid to preserve normotensive BP/ medical status reviewed with pt who presents with neutral mood and is cooperative and conversant; DC planning and her preparation for DC discussed in detail; pt responsive to reintegrative support in session. ASSESSMENT/PLAN: continues descriptive improvement and medical preparation for upcoming DC/ no change in meds or management o/t decrease in Lasix to 30 mg bid and increase in Metformin to 1000mg bid 04/28/17 11:44 DAY UPDATE/PLAN: Nursing reports pt remains stable and effectively in final phase of resolving residual syndromal depression and fully engaged in finalizing definitive DC plan. Pt's pain control is controlled, she has mastered her independent care of leg wound which is healing effectively; blood sugars are controlled in range of 100 - 200 on Metformin alone and SSI has been dc'd. Pt is mobile and will need portable oxygen tank and nasal cannula supplied for her to cover her supplemental oxygen needs post DC. Blood pressure is stable on current antihypertensives. DC plans are in process of being finalized which will include a scheduled intake with [facility] post DC to close on referral for her outpt psychiatric services. Medical care will be resumed at the [facility]/ on direct exam pt is calm, cooperative, conversant; reviewed current stage of DC planning and pt evidenced good understanding and alliance with see planning thru to closure, is working well with her Nursing Team and Angle Shear Operator. ASSESSMENT/PLAN: sustaining improving course thru final DC planning phase/ no change in meds or management plan; anticipate closure on DC date with finalizing pt's placement 04/29/17 08:36 DAY ' UPDATE/EXAM: Nursing reports pt is productively engaging with her treatment plan - sustaining the gains made in resolving syndromal depression; medically stable using nocturnal 02 to maintain sats -does occasionally drop sats during the day to mid-upper 80's but has no respiratory complaints; we will consider scheduling 02 use for intervals during the day after checking sat on RA for several days/ on direct exam pt is calm, cooperative, conversant; in over- viewing course to date pt associates to the longer-term course of her depression and her loss of her CLH; this time reports more detail about knowing he had CABG emergently after admission for his CP; she reports not being allowed to see him in the ICU, multiple contact with older son after his DC and son's refusal to allow her to see her ; she states she had one fortuitous contact with elder son 10 months later and learned that was dementing but was still not allowed to see him; in this session she brought up the other major object loss of her best girlfriend whom she found in bed 2 yrs ago; pt teared up several times in the session, wanted to consider letting me call older son of her to advocate for her to update his status to reach "closure" as stated by the pt. Pt does understand we will collect clean- catch urine for pyuric UA reported yesterday ASSESSMENT/PLAN: sustaining gains and re-focussed on grief work/ no change in meds; culture urine; f/u grief work in AM and complete preparation for DC ? 05/0104/30/17 08:30 DAY UPDATE/EXAM: Nursing reports pt doing well with resolution of syndromal depression; BS 168; O2 sats 86 - 92 on RA/ on direct exam states she's hesitant to contact 's sons as she's not had contact for 3+ years and knows it would be conflictual; discussed need for closure on 's status (? if alive ) and what to do; also reviewed preparation for DC; denies sx a/w ? UTI and knows culture results pending. ASSESSMENT/PLAN: sustaining gains in resolving syndromal depression and hopeful of DC to 05/02/ no change in meds or mangagement plan; will monitor BS's, ck culture results form clean-catch, review O2 sats and oxygen order with Nursing today 05/01/17 11:44 DAY UPDATE/EXAM: Nursing reports pt slept better; 02 sats still variably under 92 on RA; BS's under 200 off SSI, urine culture pending still/ on direct exam focus on updating medical issues; pt understands new order for standing 02; further discussion about her unreadiness to my contacting 's sons and positioning pt for psychotherapeutic work post DC anticipated tomorrow in PM to , affectively stable ASSESSMENT/PLAN: sustaining descriptive progress; needs standing 02 post meals and overnight/ no change in meds; continue monitoring 02 sats on standing 02 per orders; finish preparation for DC; will cover presumed UTI with macrobid ds bid while waiting for culture results 05/02/17 13:02 Discharge Note DAY UPDATE/EXAM: Nursing reports pt is maintaining affective stability and medical stability; cooperatively engaging her Care Plan;/ on direct exam pt presents as calm, cooperative, conversant; focuses effectively on course overview identifying gains and goals post dc a/w medical and psychiatric followup; meds again reviewed; pt deemed sufficiently stable for DC ASSESSMENT.PLAN: DC today to stepdown to [facility] Psychiatric f/u with [facility] for intake and triage Medical f/u with [facility] and provider Team Medications at DC as referenced - 30 day prescriptions at DC see Discharge summary ADDENDUM: Oxygen benefits pt's dx of COPD by improving her daily life adaptation including capacity to ambulate comfortably, prevent falls secondary to low oxygenation, and facilitate optimal cognitive lucidity; 02 prescribed as continuous 02 flow at rate of 2L/min delivered per nasal cannula via mobile portable tank 24 hr/day. 05/03/17 11;15 DAY ' UPDATE/EXAM: DC delayed from yesterday until today for [facility] to make final preparation to receive pt a/w staffing and medical support needs being clarified / on direct exam pt continues stable presentation affectively; discloses further termination work accomplished with staff and patients she has sought out for final conversations to review gains made during inpt treatment and hear feedback from them on what she's accomplished. ASSESSMENT/PLAN: sustained stability for DC this PM; DC plan as referenced in preceding note DC medications as referenced 05/03/17 15:48 Medications Generic Name Dose Route Start Last Admin Trade Name Freq PRN Reason Stop Dose Admin Lorazepam 0.5 - 1 mg 05/02/17 15:54 05/03/17 00:07 Ativan PO 10/29/17 15:53 1 mg Q6HRS PRN Anxiety, insomnia Methadone HCl 20 mg 04/26/17 05:00 05/03/17 12:52 Methadone Hcl PO 05/06/17 04:59 20 mg 0500,1400,2100 [facility] Potassium Chloride 10 meq 04/17/17 09:00 05/03/17 12:51 Klor-Con PO 10/14/17 08:59 10 meq BIDDIUR CLAU Pregabalin 100 mg 04/17/17 08:00 05/03/17 12:52 Lyrica PO 10/13/17 21:59 100 mg 0500,1400,2100 [facility] Promethazine HCl 25 mg 04/18/17 01:00 05/03/17 08:16 Phenergan PO 10/15/17 00:59 25 mg Q4 PRN Nausea/Vomiting Fluticasone/Salmeterol 1 puffs 04/16/17 21:00 05/03/17 09:22 Advair IH 10/13/17 20:59 1 puffs BID CLAU Acetaminophen 650 mg 04/16/17 21:04 04/17/17 05:21 Tylenol PO 10/13/17 21:03 650 mg Q4HRS PRN Pain, Mild Albuterol 1 - 2 puffs 04/16/17 19:12 04/30/17 23:57 Proventil Inhaler IH 10/13/17 19:11 2 puffs QID PRN *SOB/Dyspnea Bupropion HCl 200 mg 04/26/17 09:00 05/03/17 09:11 Wellbutrin Sr PO 10/23/17 08:59 200 mg DAILY [facility] Dabigatran 150 mg 04/16/17 21:00 05/03/17 09:16 Pradaxa PO 10/13/17 20:59 150 mg BID [facility] Furosemide 30 mg 04/27/17 14:15 05/03/17 12:51 Lasix PO 10/24/17 14:14 30 mg BID@0700,1200 [facility] Lisinopril 10 mg 04/17/17 09:00 05/03/17 09:17 Zestril PO 10/14/17 08:59 10 mg DAILY [facility] Metformin HCl 1,000 mg 04/26/17 08:00 05/03/17 09:18 Glucophage PO 10/23/17 07:59 1,000 mg BIDMEAL [facility] Metoprolol Tartrate 25 mg 04/26/17 21:00 05/03/17 09:17 Lopressor PO 10/23/17 20:59 25 mg BID [facility] Nitrofurantoin Macrocrystals 100 mg 05/01/17 21:00 05/03/17 09:12 Macrobid PO 05/31/17 20:59 100 mg BID [facility] Pantoprazole Sodium 40 mg 04/22/17 14:30 05/03/17 09:16 Protonix PO 10/19/17 14:29 40 mg BID CLAU Trazodone HCl 50 mg 04/18/17 21:00 05/02/17 21:12 Trazodone PO 10/15/17 20:59 50 mg HS CLAU Objective: Vital Signs Temp Pulse Resp BP Pulse Ox 36.3 C 83 14 116/58 L 94 05/03/17 08:00 05/03/17 09:17 05/03/17 08:01 05/03/17 09:17 05/03/17 08:01 Microbiology 04/30/17 13:50 Urine Culture - Final Urine,Clean Catch Four [place] Types ICD10 Worksheet Patient Problems: Problems Problem Status Onset Abscess of abdominal wall Acute Abscess of thigh Acute Depression Acute Heroin addiction Acute MRSA (methicillin resistant Staphylococcus aureus) Acute 07/01/15 Urinary tract infection Acute
[2017-05-03 17:05] VITALS: BP 118/56; PULSE 81; RESP 16; TEMP 98; O2SAT 95
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
== END 2017-05-03 17:35 | DRG 885 ==
LOC: BBEH 04-16 17:10
PROVIDERS: ADMIT Psychiatry & Neurology Psychiatry; ATTEND Psychiatry & Neurology Psychiatry
DX: F33.2 Major depressive disorder, recurrent severe without psychotic features (principal); F42.8 Other obsessive-compulsive disorder; E11.65 Type 2 diabetes mellitus with hyperglycemia; E11.42 Type 2 diabetes mellitus with diabetic polyneuropathy; J44.9 Chronic obstructive pulmonary disease, unspecified; F17.210 Nicotine dependence, cigarettes, uncomplicated; R07.89 Other chest pain; S90.112A Contusion of left great toe without damage to nail, initial encounter; W06.XXXA Fall from bed, initial encounter; Y92.230 Patient room in hospital as the place of occurrence of the external cause; Y99.8 Other external cause status; I87.312 Chronic venous hypertension (idiopathic) with ulcer of left lower extremity; L97.221 Non-pressure chronic ulcer of left calf limited to breakdown of skin; I11.0 Hypertensive heart disease with heart failure; I50.9 Heart failure, unspecified; G47.33 Obstructive sleep apnea (adult) (pediatric); G89.4 Chronic pain syndrome; M19.91 Primary osteoarthritis, unspecified site; E66.09 Other obesity due to excess calories; M51.9 Unspecified thoracic, thoracolumbar and lumbosacral intervertebral disc disorder; Z86.711 Personal history of pulmonary embolism; Z79.01 Long term (current) use of anticoagulants; Z59.0 Homelessness
CPT/HCPCS: 80305; G0480; J1815

== ENCOUNTER 2017-04-21 17:31 | Emergency (ER) | payer MEDICAID ==
[2017-04-21] MEDS ORDERED: MAG HYDROX/AL HYDROX/SIMETH 30 ML UDCUP PO ONE (17:43)
[2017-04-21] MEDS ORDERED: HYOSCYAMINE SULFATE 0.125 MG TAB PO ONE (17:43)
[2017-04-21] MEDS ORDERED: LIDOCAINE 2% VISCOUS 15 ML UDCUP PO ONE (17:43)
--- NOTE | 2017-04-21 17:43 | CPEKG ---
Heart Rate: 69 RR Interval: 870 P-R Interval: 168 QRSD Interval: 84 QT Interval: 412 QTC Interval: 442 P [employer]: 11 QRS [employer]: 44 T Wave [employer]: 43 EKG Severity - NORMAL ECG - EKG Impression: SINUS RHYTHM Electronically Signed By: Everton Anderson 21-Apr-2017 18:15:39
[2017-04-21 17:52] LABS: % IMMATURE GRANULYOCYTES 0.4 % (0.0-1.1); ABSOLUTE IMMATURE GRANULOCYTES 0.04 10^3/uL (0.00-0.10); ADD DIFF? NO; ADD MORPH? NO; ADD SCAN? NO; ATYPICAL LYMPHOCYTE FLAG 10 (0-99); FRAGMENT RBC FLAG 0 (0-99); HEMATOCRIT 48.4 % (38.0-47.0); HEMOGLOBIN 15.6 g/dL (12.6-16.3); LEFT SHIFT FLG 0 (0-99); LIPEMIA HEMOLYSIS FLAG 80 (0-99); MEAN CELL HEMOGLOBIN 29.3 pg (27.9-34.1); MEAN CELL HEMOGLOBIN CONCENTR. 32.2 g/dL (32.4-36.7); MEAN CELL VOLUME 90.8 fL (81.5-99.8); MEAN PLATELET VOLUME 10.6 fL (8.7-11.7); PLATELET CLUMPS FLAG 0 (0-99); PLATELET COUNT 244 10^3/uL (150-400); RED BLOOD CELL COUNT 5.33 10^6/uL (4.18-5.33); RED CELL DISTRIBUTION WIDTH 14.2 % (11.5-15.2)
[2017-04-21 18:05] LABS: ANION GAP 14 mEq/L (8-16); CALCIUM 9.1 mg/dL (8.5-10.4); CARBON DIOXIDE 30 mEq/l (22-31); CHLORIDE 97 mEq/L (97-110); CREATININE 0.9 mg/dL (0.6-1.0); GLOMERULAR FILTRATION RATE > 60; GLUCOSE 172 mg/dL (70-100); POTASSIUM 4.7 mEq/L (3.5-5.2); SODIUM 141 mEq/L (134-144)
--- NOTE | 2017-04-21 18:16 | EDPHY ---
H & P Stated Complaint: CP Time Seen by Provider: 04/21/17 17:40 HPI/ROS: CHIEF COMPLAINT: Chest pain HISTORY OF PRESENT ILLNESS: The patient presents to the ED with complaints of chest and epigastric pain which began several hours prior to arrival. The patient is chronically anticoagulated for pulmonary emboli. The patient reportedly has a history of myocardial infarction however denies any history of stent placement. Patient does have a history of multiple comorbid medical problems including obesity, obstructive sleep apnea, hypertension and chronic lower extremity wounds. The patient denies any nausea or vomiting. The patient does complain of some associated left upper quadrant pain. The patient rates her symptoms as a 5/10. REVIEW OF SYSTEMS: A comprehensive 10 point review of systems is otherwise negative aside from elements mentioned in the history of present illness. Source: Patient Exam Limitations: No limitations - Personal History Current Tetanus Diphtheria and Acellular Pertussis (TDAP): Yes Tetanus Vaccine Date: < 10 years - Medical/Surgical History Hx Asthma: Yes Hx Chronic Respiratory Disease: No Hx Diabetes: Yes Hx Cardiac Disease: No Hx Renal Disease: No Hx Cirrhosis: No Hx Alcoholism: No Hx HIV/AIDS: No Hx Splenectomy or Spleen Trauma: No Other PMH: chf, neuropathy, factor 5 leiden, dvt, pe, asthma, diabetes, [place] 1994 , chronic pain, [place]'s, heart failure, reactive airway disease, latent TB infection, hysterectomy - Social History Smoking Status: Former smoker - Physical Exam Exam: General Appearance: Obese female Eyes: Pupils equal and round no pallor or injection ENT, Mouth: Mucous membranes moist Respiratory: There are no retractions, lungs are clear to auscultation Cardiovascular: Regular rate and rhythm Gastrointestinal: Tenderness to palpation noted in the epigastrium and left upper quadrant Neurological: A&O, normal motor function, normal sensory exam, normal cranial nerves Skin: Warm and dry, no rashes Musculoskeletal: Neck is supple nontender Extremities: symmetrical, full range of motion Constitutional: Initial Vital Signs O2 Sat (%) 94 04/21/17 17:31 O2 Delivery Mode Room Air O2 (L/minute) 2 Allergies/Adverse Reactions: atorvastatin calcium [From Lipitor] Allergy (Severe, Verified 09/23/16 13:17) MUSCLE ACHES iodine [Iodine] Allergy (Intermediate, Verified 09/23/16 13:17) SHORTNESS OF BREATH latex [Latex] Allergy (Intermediate, Verified 09/23/16 13:17) UNK ondansetron Allergy (Verified 09/23/16 13:17) Home Medications: Medication Instructions Recorded Albuterol [Proventil Inhaler HFA 1 - 2 puffs IH QID PRN 07/01/15 (*)] Fluticasone/Salmeter 250/50Mcg 1 puffs IH BID 07/01/15 [Advair 250/50 (*)] Dabigatran Etexilate Mesyl 150 mg PO BID 04/16/17 [Pradaxa 150 MG (*)] Furosemide [Lasix] 40 mg PO BIDDIUR 04/16/17 Lisinopril [Zestril 10 mg (*)] 10 mg PO DAILY 04/16/17 Methadone HCl [Methadone HCl 10 mg 10 mg PO TID 04/16/17 (*)] Metoprolol Tartrate [Lopressor 50 50 mg PO BID 04/16/17 mg (*)] Pregabalin [Lyrica 50mg (*)] 100 mg PO TID 04/16/17 Sulfamethox/Tmp 800/160 mg 1 tab PO BID 04/16/17 [Bactrim Ds] metFORMIN HCL [Metformin HCl] 500 mg PO BIDMEAL 04/16/17 Medical Decision Making - Diagnostics EKG Interpretation: EKG: Complete interpretation has been separately recorded in the [employer] archive. Summary impression: Sinus rhythm, rate 69 Imaging Results: Imaging Impressions Chest X-Ray 04/21/17 17:43 Impression: 1. Minimal cardiomegaly. No failure. 2. Mild bronchitis/airways disease. ED Course/Re-evaluation: I reviewed the patient's past medical records including her hospitalizations in 2009 for chest pain. She did have a documented negative stress test at that point time. The patient has no ischemic changes on her EKG. The patient's troponin is normal. The patient's GI labs are within normal limits. She does have a prior history of cholecystectomy. I find the patient to have a benign abdominal examination aside from some mild epigastric and left upper quadrant tenderness. In reviewing her records, the patient does have a history of chronic pain syndrome. She is currently anticoagulated for pulmonary embolism and I do not feel needs to have an evaluation for acute thromboembolic event. The patient did receive a GI cocktail in the emergency department. At this point time I do feel the patient has been cleared to return to the inpatient psychiatric unit. I do feel the etiology of her pain is likely secondary to her chronic pain syndrome and ongoing psychiatric issues. The patient should return to the ED for markedly worsening symptoms, abnormal vital signs, fever or other acute concerns. 9:00 p.m.: Patient's vital signs continued to be normal. The patient will be discharged back to the inpatient psychiatric unit. Differential Diagnosis: Differential diagnosis considered includes acute coronary syndrome, gastritis, pancreatitis, cholecystitis - Data Points Laboratory Results: Laboratory Results 04/21/17 17:30 04/21/17 17:30 04/21/17 04/21/17 17:30 17:30 WBC 9.05 10^3/uL 10^3/uL (3.80-9.50) RBC 5.33 10^6/uL 10^6/uL (4.18-5.33) Hgb 15.6 g/dL g/dL (12.6-16.3) Hct 48.4 % H % (38.0-47.0) MCV 90.8 fL fL (81.5-99.8) MCH 29.3 pg pg (27.9-34.1) MCHC 32.2 g/dL L g/dL (32.4-36.7) RDW 14.2 % % (11.5-15.2) Plt Count 244 10^3/uL 10^3/uL (150-400) MPV 10.6 fL fL (8.7-11.7) Neut % (Auto) 55.6 % % (39.3-74.2) Lymph % (Auto) 32.4 % % (15.0-45.0) [place] % (Auto) 8.5 % % (4.5-13.0) Eos % (Auto) 2.4 % % (0.6-7.6) Baso % (Auto) 0.7 % % (0.3-1.7) Nucleat RBC Rel Count 0.0 % % (0.0-0.2) Absolute Neuts (auto) 5.03 10^3/uL 10^3/uL (1.70-6.50) Absolute Lymphs (auto) 2.93 10^3/uL 10^3/uL (1.00-3.00) Absolute Monos (auto) 0.77 10^3/uL 10^3/uL (0.30-0.80) Absolute Eos (auto) 0.22 10^3/uL 10^3/uL (0.03-0.40) Absolute Basos (auto) 0.06 10^3/uL 10^3/uL (0.02-0.10) Absolute Nucleated RBC 0.00 10^3/uL 10^3/uL (0-0.01) Immature Gran % 0.4 % % (0.0-1.1) Immature Gran # 0.04 10^3/uL 10^3/uL (0.00-0.10) Sodium 141 mEq/L mEq/L (134-144) Potassium 4.7 mEq/L mEq/L (3.5-5.2) Chloride 97 mEq/L mEq/L (97-110) Carbon Dioxide 30 mEq/l mEq/l (22-31) Anion Gap 14 mEq/L mEq/L (8-16) BUN 29 mg/dL H mg/dL (7-23) Creatinine 0.9 mg/dL mg/dL (0.6-1.0) Estimated GFR > 60 Glucose 172 mg/dL H mg/dL (70-100) Calcium 9.1 mg/dL mg/dL (8.5-10.4) Troponin I < 0.012 ng/mL ng/mL (0-0.034) Medications Given: Discontinued Medications Al Hydroxide/Mg Hydroxide (Maalox Susp) 30 ml PO ONCE ONE Stop: 04/21/17 17:44 Last Admin: 04/21/17 18:10 Dose: 30 ml Hyoscyamine Sulfate (Levsin, Hyomax-Sl) 0.25 mg PO ONCE ONE Stop: 04/21/17 17:44 Last Admin: 04/21/17 18:09 Dose: 0.25 mg Lidocaine (Lidocaine 2% Viscous) 15 ml PO ONCE ONE Stop: 04/21/17 17:44 Last Admin: 04/21/17 18:10 Dose: 15 ml Departure - Departure Disposition: [facility] IP Clinical Impression: Abdominal pain, Chronic pain, Depression Condition: Good Instructions: Abdominal Pain (ED) Additional Instructions: 1. I recommend taking Maalox to see if this improves your symptoms of abdominal pain. 2. Please return to the ED for markedly worsening symptoms, fever, vomiting or other concerns. 3. Please follow up with your regular primary care provider and psychiatrist ongoing management. Referrals: SHALONDA WILKINSON MD [Primary Care Provider] - As per Instructions
[2017-04-21 18:17] LABS: TROPONIN I < 0.012 ng/mL (0-0.034)
[2017-04-21 20:34] VITALS: RESP 16; TEMP 98.1
[2017-04-21 20:36] VITALS: BP 93/55; PULSE 65; O2SAT 94
== END 2017-04-21 21:09 | disposition home or self-care (01) ==
LOC: EDUNIT#
DX: R07.9 Chest pain, unspecified (principal); R10.13 Epigastric pain; F32.9 Major depressive disorder, single episode, unspecified

== ENCOUNTER 2017-04-22 20:05 | Emergency (ER) | payer MEDICAID ==
--- NOTE | 2017-04-22 20:16 | CPEKG ---
Heart Rate: 68 RR Interval: 882 P-R Interval: 168 QRSD Interval: 86 QT Interval: 408 QTC Interval: 434 P Mar[place]: 39 QRS [place]: 40 T Wave Mar[place]: 43 EKG Severity - NORMAL ECG - EKG Impression: SINUS RHYTHM Electronically Signed By: Brendan Wilde 24-Apr-2017 18:46:49
[2017-04-22 20:41] VITALS: RESP 17; TEMP 97.7; O2SAT 99
[2017-04-22 21:05] LABS: % IMMATURE GRANULYOCYTES 0.3 % (0.0-1.1); ABSOLUTE IMMATURE GRANULOCYTES 0.03 10^3/uL (0.00-0.10); ADD DIFF? NO; ADD MORPH? NO; ADD SCAN? NO; ATYPICAL LYMPHOCYTE FLAG 0 (0-99); FRAGMENT RBC FLAG 0 (0-99); HEMATOCRIT 44.2 % (38.0-47.0); HEMOGLOBIN 14.4 g/dL (12.6-16.3); LEFT SHIFT FLG 0 (0-99); LIPEMIA HEMOLYSIS FLAG 80 (0-99); MEAN CELL HEMOGLOBIN 29.7 pg (27.9-34.1); MEAN CELL HEMOGLOBIN CONCENTR. 32.6 g/dL (32.4-36.7); MEAN CELL VOLUME 91.1 fL (81.5-99.8); MEAN PLATELET VOLUME 10.7 fL (8.7-11.7); PLATELET CLUMPS FLAG 0 (0-99); PLATELET COUNT 221 10^3/uL (150-400); RED BLOOD CELL COUNT 4.85 10^6/uL (4.18-5.33)
[2017-04-22] MEDS ORDERED: IOPAMIDOL (ISOVUE 370) 100 ML BTL IV ONE (21:07)
[2017-04-22 21:14] LABS: ALANINE AMINOTRANSFERASE 64 IU/L (9-52); ALBUMIN 3.8 g/dL (3.5-5.0); ALKALINE PHOSPHATASE 118 IU/L (38-126); ANION GAP 10 mEq/L (8-16); ASPARTATE AMINOTRANSFERASE 52 IU/L (14-46); BILIRUBIN,TOTAL 0.6 mg/dL (0.1-1.4); BILIRUBIN-CONJUGATED 0.5 mg/dL (0.0-0.5); BILIRUBIN-UNCONJUGATED 0.1 mg/dL (0.0-1.1); CALCIUM 8.9 mg/dL (8.5-10.4); CARBON DIOXIDE 31 mEq/l (22-31); CHLORIDE 97 mEq/L (97-110); CREATININE 0.9 mg/dL (0.6-1.0); GLOMERULAR FILTRATION RATE > 60; GLUCOSE 139 mg/dL (70-100); POTASSIUM 4.6 mEq/L (3.5-5.2); SODIUM 138 mEq/L (134-144); TOTAL PROTEIN 6.7 g/dL (6.3-8.2)
[2017-04-22 21:25] LABS: TROPONIN I < 0.012 ng/mL (0-0.034)
[2017-04-22] MEDS ORDERED: methylPREDNISolone SOD SUCC 125 MG/2 ML VIAL IVP ONE (21:37)
--- NOTE | 2017-04-22 21:38 | EDPHY ---
H & P Stated Complaint: CP x 1 day, sent from Time Seen by Provider: 04/22/17 20:28 HPI/ROS: Chief Complaint: Chest pain HPI: 61-year-old woman sent over from the [address] [place] [address] unit for chest pain. Patient was seen here for chest pain yesterday. Had negative ECGs and troponins at that time. Patient has been having persistent chest pain since yesterday. Did have an episode of severe sharp pain below her left breast while carrying laundry down the gutierrez earlier this evening. The symptoms of a still has a dull aching chest. Patient was seen by the rehab doctor on the floor he noted that he she had a history of a type a AAA repair in the past and was concerned about the possibility of an aneurysmal leak or bleed. The patient does have a history of PEs in the past and is chronically on Xarelto. Denies any fevers or chills. No cough. No nausea or vomiting. No abdominal pain. ROS: 10 point Review of Systems is negative except as noted in the HPI. PMH: Depression, type 1 AAA repair, PE Social History: No smoking, no alcohol, no recreational drug use Family History: non-contributory Physical Exam: Gen: Awake, Alert, No Distress, morbidly obese HEENT: Nose: no rhinorrhea Eyes: PERRLA, EOMI Mouth: Moist mucosa Neck: Supple, no JVD Chest: She has chest wall tenderness below the left breast on examination, lungs clear to auscultation Heart: S1, S2 normal, no murmur Abd: Soft, non-tender, no guarding Back: no CVA tenderness, no midline tenderness Ext: no edema, non-tender Skin: no rash Neuro: CN II-XII intact, Sensation grossly intact, Strength 5/5 in bilateral upper and lower extremities - Personal History Current Tetanus Diphtheria and Acellular Pertussis (TDAP): Yes Tetanus Vaccine Date: < 10 years - Medical/Surgical History Hx Asthma: Yes Hx Chronic Respiratory Disease: No Hx Diabetes: Yes Hx Cardiac Disease: No Hx Renal Disease: No Hx Cirrhosis: No Hx Alcoholism: No Hx HIV/AIDS: No Hx Splenectomy or Spleen Trauma: No Other PMH: chf, neuropathy, factor 5 leiden, dvt, pe, asthma, diabetes, [place] 1994 , chronic pain, Ulysses's, heart failure, reactive airway disease, latent TB infection, hysterectomy - Social History Smoking Status: Former smoker Constitutional: Initial Vital Signs Temperature (C) 36.5 C 04/22/17 20:05 Heart Rate 68 04/22/17 20:05 Respiratory Rate 17 04/22/17 20:05 Blood Pressure 107/71 04/22/17 20:05 O2 Sat (%) 99 04/22/17 20:05 O2 Delivery Mode Nasal Cannula O2 (L/minute) 4 Allergies/Adverse Reactions: atorvastatin calcium [From Lipitor] Allergy (Severe, Verified 09/23/16 13:17) MUSCLE ACHES iodine [Iodine] Allergy (Intermediate, Verified 09/23/16 13:17) SHORTNESS OF BREATH latex [Latex] Allergy (Intermediate, Verified 09/23/16 13:17) UNK ondansetron Allergy (Verified 09/23/16 13:17) Home Medications: Medication Instructions Recorded Albuterol [Proventil Inhaler HFA 1 - 2 puffs IH QID PRN 07/01/15 (*)] Fluticasone/Salmeter 250/50Mcg 1 puffs IH BID 07/01/15 [Advair 250/50 (*)] Dabigatran Etexilate Mesyl 150 mg PO BID 04/16/17 [Pradaxa 150 MG (*)] Furosemide [Lasix] 40 mg PO BIDDIUR 04/16/17 Lisinopril [Zestril 10 mg (*)] 10 mg PO DAILY 04/16/17 Methadone HCl [Methadone HCl 10 mg 10 mg PO TID 04/16/17 (*)] Metoprolol Tartrate [Lopressor 50 50 mg PO BID 04/16/17 mg (*)] Pregabalin [Lyrica 50mg (*)] 100 mg PO TID 04/16/17 Sulfamethox/Tmp 800/160 mg 1 tab PO BID 04/16/17 [Bactrim Ds] metFORMIN HCL [Metformin HCl] 500 mg PO BIDMEAL 04/16/17 Medical Decision Making - Diagnostics Imaging Results: Imaging Impressions Abdomen/Pelvis CTA 04/22/17 21:00 Impression: 1. No acute vascular findings. 2. Enlarged fatty liver. 3. Simple appearing right ovarian cyst measuring 3.3 cm. In a postmenopausal patient, annual ultrasound follow-up is recommended. 4. Constipation. 5. Atherosclerosis with minimal stenosis of the left common iliac artery. 6. Additional findings as above. Findings discussed with Rip Chilel MD 04/22/2017 at 22:49. Chest/Thorax CTA 04/22/17 21:00 Impression: 1. No acute vascular findings. 2. Enlarged fatty liver. 3. Simple appearing right ovarian cyst measuring 3.3 cm. In a postmenopausal patient, annual ultrasound follow-up is recommended. 4. Constipation. 5. Atherosclerosis with minimal stenosis of the left common iliac artery. 6. Additional findings as above. Findings discussed with Rip Chilel MD 04/22/2017 at 22:49. Imaging: Discussed imaging studies w/ call worker Radiologist ED Course/Re-evaluation: CT scan of the chest and abdomen are unremarkable. No evidence of aneurysm now or in the past. No acute findings. Patient's troponin is still negative. There is no evidence of acute cardiac or respiratory disease causing her pain. I suspect is musculoskeletal in nature. Patient has a normal H&H and bilirubin. There is no evidence of acute gastrointestinal bleeding either. Will discharge black to [address] [place] [address] for further psychiatric care. - Data Points Laboratory Results: Laboratory Results 04/22/17 20:40 04/22/17 20:40 04/22/17 04/22/17 20:40 20:40 WBC 9.20 10^3/uL 10^3/uL (3.80-9.50) RBC 4.85 10^6/uL 10^6/uL (4.18-5.33) Hgb 14.4 g/dL g/dL (12.6-16.3) Hct 44.2 % % (38.0-47.0) MCV 91.1 fL fL (81.5-99.8) MCH 29.7 pg pg (27.9-34.1) MCHC 32.6 g/dL g/dL (32.4-36.7) RDW 14.0 % % (11.5-15.2) Plt Count 221 10^3/uL 10^3/uL (150-400) MPV 10.7 fL fL (8.7-11.7) Neut % (Auto) 57.4 % % (39.3-74.2) Lymph % (Auto) 31.4 % % (15.0-45.0) [place] % (Auto) 7.7 % % (4.5-13.0) Eos % (Auto) 2.5 % % (0.6-7.6) Baso % (Auto) 0.7 % % (0.3-1.7) Nucleat RBC Rel Count 0.0 % % (0.0-0.2) Absolute Neuts (auto) 5.28 10^3/uL 10^3/uL (1.70-6.50) Absolute Lymphs (auto) 2.89 10^3/uL 10^3/uL (1.00-3.00) Absolute Monos (auto) 0.71 10^3/uL 10^3/uL (0.30-0.80) Absolute Eos (auto) 0.23 10^3/uL 10^3/uL (0.03-0.40) Absolute Basos (auto) 0.06 10^3/uL 10^3/uL (0.02-0.10) Absolute Nucleated RBC 0.00 10^3/uL 10^3/uL (0-0.01) Immature Gran % 0.3 % % (0.0-1.1) Immature Gran # 0.03 10^3/uL 10^3/uL (0.00-0.10) Sodium 138 mEq/L mEq/L (134-144) Potassium 4.6 mEq/L mEq/L (3.5-5.2) Chloride 97 mEq/L mEq/L (97-110) Carbon Dioxide 31 mEq/l mEq/l (22-31) Anion Gap 10 mEq/L mEq/L (8-16) BUN 30 mg/dL H mg/dL (7-23) Creatinine 0.9 mg/dL mg/dL (0.6-1.0) Estimated GFR > 60 Glucose 139 mg/dL H mg/dL (70-100) Calcium 8.9 mg/dL mg/dL (8.5-10.4) Total Bilirubin 0.6 mg/dL mg/dL (0.1-1.4) Conjugated Bilirubin 0.5 mg/dL mg/dL (0.0-0.5) Unconjugated Bilirubin 0.1 mg/dL mg/dL (0.0-1.1) AST 52 IU/L H IU/L (14-46) ALT 64 IU/L H IU/L (9-52) Alkaline Phosphatase 118 IU/L IU/L (38-126) Troponin I < 0.012 ng/mL ng/mL (0-0.034) Total Protein 6.7 g/dL g/dL (6.3-8.2) Albumin 3.8 g/dL g/dL (3.5-5.0) Lipase 32.0 IU/L IU/L (23-300) Medications Given: Discontinued Medications Diphenhydramine HCl (Benadryl Injection) 50 mg IVP EDNOW ONE Stop: 04/22/17 21:38 Last Admin: 04/22/17 21:57 Dose: 50 mg Methylprednisolone Sodium Succinate (Solu-Medrol) 125 mg IVP EDNOW ONE Stop: 04/22/17 21:38 Last Admin: 04/22/17 21:57 Dose: 125 mg Departure - Departure Disposition: [facility] IP Clinical Impression: Chest pain Condition: Good Instructions: Chest Pain (ED) Additional Instructions: Return to the emergency depart for increasing pain, nausea, vomiting, fevers, chills, or any other concerns. Referrals: Patient,NotPresent [Unknown] - As per Instructions
[2017-04-23 00:53] VITALS: BP 104/58; PULSE 69
== END 2017-04-23 00:48 ==
LOC: EDUNIT#
DX: R07.9 Chest pain, unspecified (principal)
CPT/HCPCS: 96374; J1200; Q9967

== ENCOUNTER 2017-10-24 08:08 | Inpatient (IN) | payer MEDICAID ==
[2017-10-24] MEDS ORDERED: IPRATROPIUM/ALBUTEROL 3 ML DEYVIAL IH ONE (08:21)
[2017-10-24] MEDS ORDERED: ALBUTEROL 3 ML DEYVIAL IH ONE (08:21)
--- NOTE | 2017-10-24 08:23 | EDPHY ---
HPI/HX/ROS/PE/MDM Narrative: CHIEF COMPLAINT: Shortness of breath HISTORY OF PRESENT ILLNESS: The patient is a 62 y/o female arriving via EMS from the bus stop complaining of shortness of breath for the last couple days. She has a history of CHF, diabetes, Factor V Leiden deficiency, DC, and active heroin addiction and is non-compliant with her medications aside from insulin. She is supposed to be on home O2 at night, but does not use it. EMS found her with an SpO2 of 80% on their arrival that improved to 96% on 2-3LPM of O2. She also complains of some mild, substernal, non-radiating chest pain that began this morning. No fever, chills, cough, palpitations, nausea, vomiting, diarrhea, urinary complaints, headache, lightheadedness. REVIEW OF SYSTEMS: Aside from elements discussed in the HPI, a comprehensive 10-point review of systems was reviewed and is negative. PAST MEDICAL HISTORY: 1. CHF - Lasix 2. Diabetes - insulin 3. Active heroin addiction, previously on methadone 4. Factor V Leiden deficiency with prior PE and DVT - Pradaxa 5. DC in 1994 SOCIAL HISTORY: Transient - lives in [place] with a friend. PCP: Dr. Ivy Marvin VITAL SIGNS: Reviewed by me, 96% on RA upon initial assessment GENERAL: Very obese, no obvious no respiratory distress, hoarse voice. HEENT: Atraumatic. Eyes: No icterus, no injection. Mouth: moist mucous membranes. No erythema or lesions. Neck: supple with no adenopathy. Very thick , short neck with excessive fat and soft tissues. LUNGS: Incredibly distant and diminished breath sounds CARDIAC: Regular rate and rhythm, no rubs, murmurs or gallops. ABDOMEN: Obese, soft, nontender. BACK: No CVA tenderness. EXTREMITIES: No trauma. Tense edema throughout legs, back, and hands. Chronic venous stasis changes to both lower legs with associated erythema. Range of motion is normal throughout. NEURO: Alert and oriented, grossly nonfocal. SKIN: Cool and dry, no rash, covered in track gilmore. PSYCHIATRIC: Normal mentation, no agitation. Portions of this note were transcribed by a medical safety director. I personally performed a history, physical exam, medical decision making, and confirmed accuracy of information the transcribed note. ED Course: This is a morbidly obese 62 y/o female with a history that includes CHF, Factor V Leiden deficiency, and heroin abuse who presents with a couple days of worsening dyspnea. She is noncompliant with most of her medications including Pradaxa, Lasix, and home O2. She has diffuse peripheral edema on exam and her lung sounds are extremely distant. She is afebrile and her initial BP is in the 80s systolic here, though subsequent reading is 123/86. Plan for IV, labs, UA, EKG, chest x-ray. Duo neb administered. The 12 lead EKG was interpreted by myself. Sinus mechanism rate 78, baseline artifact, no definitive ischemia. See hard copy and/or "tracemaster" electronic copy for interpretation. We have been unable to obtain a peripheral IV after several attempts. I have ordered a PICC line. Given her intermittent use of pradaxa and her body habitus , a peripheral PICC line is preferred over a central line. Initially BP was noted to be low on several occasions, but subsequent readings are normotensive. SOB greatly improved with duoneb. Chest x-ray: cardiomegaly, widened mediastinum similar to 7 months ago. 1000: Continuing to wait for PICC team. ETA is 1 hour. 1115: Patient told RN she would like to leave the ED. She does not want to wait for a PICC line or complete assessment here. I've advised her to stay and discussed risks of leaving the department. She tells me she feels terrible and is withdrawing. I suspect she wants to leave to use heroin. I offered Clonidine for her withdrawal symptoms, which she agrees to and has decided to stay to complete work up for now. 1215: Patient is currently getting a PICC line placed. D-dimer elevated. CTA chest ordered. Labs concerning for elevated troponin, elevated BNP. Spoke with hospitalist service. Dr. Christensen accepts admission. CT scan called to me after patient was on floor; bilateral extensive PE's with some evidence of right heart strain. MDM: Differential diagnosis for the patient's shortness of breath was considered including but not limited to pulmonary infectious processes, COPD exacerbation, pulmonary emboli, pulmonary edema, congestive heart failure, and cardiac causes. - Data Points Imaging Results: Imaging Impressions Chest X-Ray 10/24/17 08:21 Impression: Cardiomegaly, with mild peribronchial thickening, but no focal infiltrate PICC Line Insertion 10/24/17 08:44 Impression: Successful right upper extremity PICC placement. The catheter may be used immediately. Chest/Thorax CTA 10/24/17 13:29 Impression: 1. Moderate to large volume bilateral segmental and subsegmental pulmonary emboli diffusely. 2. Mild right heart strain with flattening of the interventricular septum. Findings discussed with Federica Llamas MD at 15:19 hour, 10/24/2017. Imaging: Discussed imaging studies w/ technical services rep Radiologist, I viewed and interpreted images myself Laboratory Results: Laboratory Results 10/24/17 12:40 10/24/17 12:40 10/24/17 10/24/17 10/24/17 12:40 12:40 12:40 WBC 10.42 10^3/uL H 10^3/uL (3.80-9.50) RBC 5.07 10^6/uL 10^6/uL (4.18-5.33) Hgb 15.2 g/dL g/dL (12.6-16.3) Hct 43.7 % % (38.0-47.0) MCV 86.2 fL fL (81.5-99.8) MCH 30.0 pg pg (27.9-34.1) MCHC 34.8 g/dL g/dL (32.4-36.7) RDW 14.0 % % (11.5-15.2) Plt Count 203 10^3/uL 10^3/uL (150-400) MPV 10.2 fL fL (8.7-11.7) Neut % (Auto) 74.5 % H % (39.3-74.2) Lymph % (Auto) 18.6 % % (15.0-45.0) [place] % (Auto) 6.0 % % (4.5-13.0) Eos % (Auto) 0.1 % L % (0.6-7.6) Baso % (Auto) 0.4 % % (0.3-1.7) Nucleat RBC Rel Count 0.0 % % (0.0-0.2) Absolute Neuts (auto) 7.76 10^3/uL H 10^3/uL (1.70-6.50) Absolute Lymphs (auto) 1.94 10^3/uL 10^3/uL (1.00-3.00) Absolute Monos (auto) 0.63 10^3/uL 10^3/uL (0.30-0.80) Absolute Eos (auto) 0.01 10^3/uL L 10^3/uL (0.03-0.40) Absolute Basos (auto) 0.04 10^3/uL 10^3/uL (0.02-0.10) Absolute Nucleated RBC 0.00 10^3/uL 10^3/uL (0-0.01) Immature Gran % 0.4 % % (0.0-1.1) Immature Gran # 0.04 10^3/uL 10^3/uL (0.00-0.10) PT 14.9 SEC SEC (12.0-15.0) INR 1.15 (0.83-1.16) D-Dimer 3.74 ug/mLFEU H ug/mLFEU (0.00-0.50) VBG Lactic Acid Sodium 143 mEq/L mEq/L (134-144) Potassium 3.0 mEq/L L mEq/L (3.5-5.2) Chloride 100 mEq/L mEq/L (97-110) Carbon Dioxide 30 mEq/l mEq/l (22-31) Anion Gap 13 mEq/L mEq/L (8-16) BUN 11 mg/dL mg/dL (7-23) Creatinine 0.6 mg/dL mg/dL (0.6-1.0) Estimated GFR > 60 Glucose 151 mg/dL H mg/dL (70-100) Calcium 8.7 mg/dL mg/dL (8.5-10.4) Total Bilirubin 1.0 mg/dL mg/dL (0.1-1.4) Conjugated Bilirubin 0.3 mg/dL mg/dL (0.0-0.5) Unconjugated Bilirubin 0.7 mg/dL mg/dL (0.0-1.1) AST 28 IU/L IU/L (14-46) ALT 39 IU/L IU/L (9-52) Alkaline Phosphatase 103 IU/L IU/L (38-126) Troponin I 0.047 ng/mL H ng/mL (0.000-0.034) NT-Pro-B Natriuret Pep 1740 pg/mL H pg/mL (0-125) Total Protein 6.9 g/dL g/dL (6.3-8.2) Albumin 3.5 g/dL g/dL (3.5-5.0) 10/24/17 12:40 WBC RBC Hgb Hct MCV MCH MCHC RDW Plt Count MPV Neut % (Auto) Lymph % (Auto) [place] % (Auto) Eos % (Auto) Baso % (Auto) Nucleat RBC Rel Count Absolute Neuts (auto) Absolute Lymphs (auto) Absolute Monos (auto) Absolute Eos (auto) Absolute Basos (auto) Absolute Nucleated RBC Immature Gran % Immature Gran # PT INR D-Dimer VBG Lactic Acid 1.4 mmol/L mmol/L (0.7-2.1) Sodium Potassium Chloride Carbon Dioxide Anion Gap BUN Creatinine Estimated GFR Glucose Calcium Total Bilirubin Conjugated Bilirubin Unconjugated Bilirubin AST ALT Alkaline Phosphatase Troponin I NT-Pro-B Natriuret Pep Total Protein Albumin Medications Given: Diphenhydramine HCl (Benadryl Injection) 25 mg IVP Q4HRS PRN PRN Reason: Itching Stop: 04/22/18 13:57 Last Admin: 10/24/17 14:11 Dose: 25 mg Enoxaparin Sodium (Lovenox) 120 mg SC BID@0400,1600 [facility] Stop: 04/22/18 15:44 Last Admin: 10/24/17 16:01 Dose: 120 mg Furosemide (Lasix Injection) 40 mg IVP BID@0900,1500 [facility] Stop: 04/22/18 16:14 Last Admin: 10/24/17 17:38 Dose: 40 mg Hydromorphone HCl (Dilaudid) 1 mg IVP Q6 PRN PRN Reason: Pain, Severe Unable to Take PO Stop: 11/03/17 17:18 Last Admin: 10/24/17 17:38 Dose: 1 mg Nystatin (Mycostatin Powder) 1 wendy TP TID [facility] Stop: 11/23/17 15:59 Last Admin: 10/24/17 17:37 Dose: 1 wendy Discontinued Medications Albuterol (Proventil Neb) 3 ml IH EDNOW ONE Stop: 10/24/17 08:22 Last Admin: 10/24/17 08:25 Dose: 3 ml Albuterol/Ipratropium (Duoneb) 3 ml IH EDNOW ONE Stop: 10/24/17 08:22 Last Admin: 10/24/17 08:22 Dose: 3 ml Clonidine (Catapres) 0.2 mg PO EDNOW ONE Stop: 10/24/17 11:18 Last Admin: 10/24/17 12:33 Dose: 0.2 mg Lorazepam (Ativan Injection) 1 mg IVP EDNOW ONE Stop: 10/24/17 14:52 Last Admin: 10/24/17 15:07 Dose: 1 mg Methylprednisolone Sodium Succinate (Solu-Medrol) 125 mg IVP EDNOW ONE Stop: 10/24/17 13:58 Last Admin: 10/24/17 14:11 Dose: 125 mg Morphine Sulfate (Morphine) 2 mg IVP Q4 PRN PRN Reason: Pain, Severe Unable to Take PO Stop: 11/03/17 15:38 Last Admin: 10/24/17 16:03 Dose: 2 mg Oxycodone HCl (Oxycodone Ir) 5 - 10 mg PO Q3HRS PRN PRN Reason: Pain, Severe Able to Take PO Stop: 11/03/17 15:38 Last Admin: 10/24/17 16:08 Dose: 5 mg General Initial Vital Signs: Initial Vital Signs Temperature (C) 36.8 C 10/24/17 08:14 Heart Rate 86 10/24/17 08:14 Respiratory Rate 16 10/24/17 08:14 Blood Pressure 87/46 L 10/24/17 08:14 O2 Sat (%) 96 10/24/17 08:14 O2 Delivery Mode Room Air Allergies/Adverse Reactions: atorvastatin calcium [From Lipitor] Allergy (Severe, Verified 09/23/16 13:17) MUSCLE ACHES iodine [Iodine] Allergy (Intermediate, Verified 09/23/16 13:17) SHORTNESS OF BREATH latex [Latex] Allergy (Intermediate, Verified 09/23/16 13:17) UNK ondansetron Allergy (Verified 09/23/16 13:17) Home Medications: Medication Instructions Recorded Albuterol [Proventil Inhaler HFA 1 - 2 puffs IH QID PRN #30 mdi 05/02/17 (*)] Dabigatran Etexilate Mesyl 150 mg PO BID #60 cap 05/02/17 [Pradaxa 150 MG (*)] Fluticasone/Salmeter 250/50Mcg 1 puffs IH BID #30 disk 05/02/17 [Advair 250/50 (*)] Lisinopril [Zestril 10 mg (*)] 10 mg PO DAILY #30 tab 05/02/17 Metoprolol Tartrate [Lopressor 25 25 mg PO BID #60 tab 05/02/17 mg (*)] Potassium Cl [Klor-Con 10 meq (RX)] 10 meq PO BIDDIUR #60 tab 05/02/17 Pregabalin [Lyrica 50mg (*)] 100 mg PO TID #180 cap 05/02/17 metFORMIN HCL [Glucophage 500 mg 1,000 mg PO BIDMEAL #60 tab 05/02/17 (*)] traZODone [traZODONE 50MG (*)] 50 mg PO HS #30 tab 05/02/17 Furosemide [Lasix 20 MG (*)] 40 - 80 mg PO BID@0700,1200 10/24/17 Insulin Aspart [novoLOG] 38 - 40 unit SQ AC 10/24/17 Methadone HCl [Methadone HCl 10 mg 5 mg PO DAILY 10/24/17 (*)] Tiotropium Inhaler [Spiriva 2 puffs IH DAILY 10/24/17 Inhaler] Departure - Departure Disposition: [facility] Acute Clinical Impression: Peripheral edema Dyspnea Qualifiers: Dyspnea type: shortness of breath Qualified Code(s): R06.02 - Shortness of breath; R06.00 - Dyspnea, unspecified; R06.01 - Orthopnea CHF (congestive heart failure) Qualifiers: Congestive heart failure type: unspecified congestive heart failure type Congestive heart failure chronicity: acute on chronic Qualified Code(s): I50.9 - Heart failure, unspecified Pulmonary emboli Qualifiers: Pulmonary embolism type: other Chronicity: acute Acute cor pulmonale presence: without acute cor pulmonale Qualified Code(s): I26.99 - Other pulmonary embolism without acute cor pulmonale Condition: Fair Report Scribed for: Federica Llamas Report Scribed by: Dolly Richard Date of Report: 10/24/17 Time of Report: 08:25
[2017-10-24] MEDS ORDERED: ALTEPLASE 2 MG VIAL IVP PRN (08:44)
--- NOTE | 2017-10-24 08:51 | CPEKG ---
Heart Rate: 78 RR Interval: 769 P-R Interval: 144 QRSD Interval: 94 QT Interval: 424 QTC Interval: 484 P Curtice: 58 QRS Curtice: 32 T Wave Curtice: 0 EKG Severity - NORMAL ECG - EKG Impression: SINUS RHYTHM Electronically Signed By: Federica Llamas 24-Oct-2017 17:57:06
[2017-10-24 12:58] LABS: % IMMATURE GRANULYOCYTES 0.4 % (0.0-1.1); ABSOLUTE IMMATURE GRANULOCYTES 0.04 10^3/uL (0.00-0.10); ADD DIFF? NO; ADD MORPH? NO; ADD SCAN? NO; ATYPICAL LYMPHOCYTE FLAG 0 (0-99); FRAGMENT RBC FLAG 0 (0-99); HEMATOCRIT 43.7 % (38.0-47.0); HEMOGLOBIN 15.2 g/dL (12.6-16.3); LEFT SHIFT FLG 0 (0-99); LIPEMIA HEMOLYSIS FLAG 90 (0-99); MEAN CELL HEMOGLOBIN CONCENTR. 34.8 g/dL (32.4-36.7); MEAN CELL VOLUME 86.2 fL (81.5-99.8); MEAN PLATELET VOLUME 10.2 fL (8.7-11.7); PLATELET CLUMPS FLAG 0 (0-99); PLATELET COUNT 203 10^3/uL (150-400); RED BLOOD CELL COUNT 5.07 10^6/uL (4.18-5.33)
[2017-10-24 13:06] LABS: INR 1.15 (0.83-1.16); PROTIME(PATIENT) 14.9 SEC (12.0-15.0)
[2017-10-24 13:08] LABS: ALANINE AMINOTRANSFERASE 39 IU/L (9-52); ALBUMIN 3.5 g/dL (3.5-5.0); ALKALINE PHOSPHATASE 103 IU/L (38-126); ANION GAP 13 mEq/L (8-16); ASPARTATE AMINOTRANSFERASE 28 IU/L (14-46); BILIRUBIN-CONJUGATED 0.3 mg/dL (0.0-0.5); BILIRUBIN-UNCONJUGATED 0.7 mg/dL (0.0-1.1); CALCIUM 8.7 mg/dL (8.5-10.4); CARBON DIOXIDE 30 mEq/l (22-31); CHLORIDE 100 mEq/L (97-110); CREATININE 0.6 mg/dL (0.6-1.0); GLOMERULAR FILTRATION RATE > 60; GLUCOSE 151 mg/dL (70-100); SODIUM 143 mEq/L (134-144); TOTAL PROTEIN 6.9 g/dL (6.3-8.2)
[2017-10-24 13:20] LABS: TROPONIN I 0.047 ng/mL (0.000-0.034)
[2017-10-24] MEDS ORDERED: methylPREDNISolone SOD SUCC 125 MG/2 ML VIAL IVP ONE (13:57)
[2017-10-24] MEDS ORDERED: IOPAMIDOL (ISOVUE 370) 100 ML BTL IV ONE (14:38)
[2017-10-24] MEDS ORDERED: LORazepam 2 MG/ML INJ IVP ONE (14:51)
[2017-10-24] MEDS ORDERED: ONDANSETRON 4 MG/2 ML VIAL IVP PRN (15:39)
[2017-10-24] MEDS ORDERED: ONDANSETRON DISINTEGRATING 4 MG TAB PO PRN (15:39)
[2017-10-24] MEDS ORDERED: oxyCODONE IR 5 MG TAB PO PRN (15:39)
[2017-10-24] MEDS ORDERED: ALBUTEROL 200 PUFFS/18 GM MDI IH PRN (15:39)
[2017-10-24] MEDS ORDERED: D50W 25 GM/50 ML SYR IVP PRN (15:43)
[2017-10-24] MEDS: ENOXAPARIN 120 MG/0.8 ML SYR SC SCH (16:01)
--- NOTE | 2017-10-24 16:39 | WOCRNPDOC ---
WOCRN Advanced Assessment Note - Skin Integrity Problem, Advanced Assess Bilateral Lower Leg Dressing Type: Open to Air Albertina Wound Tissue: Blanching, Erythema, Hemosiderin Staining, Shiny, Taught, Thin, Xerotic, Hair Loss, Painful/Tender Pulse Location & Description: DP palpable by ISAAC Yang. Extremity Temperature: Warm Skin Integrity Problem Comment: Bilateral lower extremity venous dermatitis. L calf circumference: 44 cm, Right calf circumference 45 cm. Will send tubigrips. Unclear is there is some cellulitis involved as the pain in the lower legs is unusual with venous stasis. Will initiate tubigrip size F. Left First Toe Dressing Type: Open to Air Exudate Amount: None Wound Bed Color: Yellow Wound Bed Constitution: Dried Exudate Site Measurement - Head-to-Toe Length X Width X Depth (cm): [id number] depth Skin Integrity Problem Comment: Wound is dry and covered with dried exudate and dirt. Cannot assess fully until dried exudate has softened off. Wound care will round again later this week. Mo RN in room for care. Left Lower Lateral Leg Dressing Type: Open to Air Wound Bed Constitution: Stable Eschar Site Measurement - Head-to-Toe Length X Width X Depth (cm): [id number] Skin Integrity Problem Comment: Unknown etiology. Will initiate autolytic debridement. Pannus Dressing Type: Open to Air Skin Integrity Problem Comment: Grade 2 Pannus with mild moisture associated dermatits. Ultrasorb dry sheets will work well to keep moisture controlled. Groin Dressing Type: Open to Air Skin Integrity Problem Comment: Moderate Moiture associated dermatitis. Will initiate Ultrasorb Dry sheets for this area and for breast and pannus folds. Will recheck efficacy in a few days. Breast Dressing Type: Open to Air Skin Integrity Problem Comment: mild moisture associated dermatitis
[2017-10-24] MEDS ORDERED: PROMETHAZINE HCL 25 MG TAB PO PRN (17:00)
[2017-10-24] MEDS ORDERED: POTASSIUM CL 20 MEQ TAB PO ONE (17:22)
[2017-10-24] MEDS: NYSTATIN POWDER 15 GM BTL TP SCH ×2 (17:37→23:31)
[2017-10-24] MEDS: FUROSEMIDE 40 MG/4 ML VIAL IVP SCH (17:38)
[2017-10-24] MEDS: HYDROmorphONE/DILAUDID 1 MG/ML INJ IVP PRN ×2 (17:38→23:23)
[2017-10-24] MEDS ORDERED: INSULIN LISPRO 100 UNIT/ML SC SCH (18:00)
[2017-10-24] MEDS: INSULIN LISPRO 100 UNIT/ML SC SCH (18:47)
[2017-10-24] MEDS: FLUTICASONE/SALMETER 250/50MCG DISKUS IH SCH (20:03)
--- NOTE | 2017-10-24 20:49 | GHP ---
[f rep st] HISTORY AND PHYSICAL DATE OF ADMISSION: 10/24/2017 CHIEF COMPLAINT: Shortness of breath. HISTORY OF PRESENT ILLNESS: This is a 62-year-old female with a history of factor V Leiden, multiple DVTs, and pulmonary embolism in the past. She has been off anticoagulation for some time. She stat es that she does not tolerate Pradaxa or other newer anticoagulants. She is also a heroin addict. S he presents with 2 days of shortness of breath. She has some chest pain as well, but is not pleuriti c. She has been noting some increasing lower extremity edema as well. No fevers or chills. The patient had been on a larger dose of methadone and had been stable for a year and a half. Howeve r, her methadone dose was markedly decreased, and now she has gone back to heroin. She is skin poppi ng. She is denying any fevers. REVIEW OF SYSTEMS: A 10-point review of systems was obtained and was negative. PAST MEDICAL HISTORY: 1. Previous pulmonary embolism and DVT. 2. Factor V Leiden. 3. Type 2 diabetes. 4. History of congestive heart failure, but I do not have the last echocardiogram done in 2014 showi ng a normal ejection fraction, but it is showing diastolic dysfunction. 5. History of latent tuberculosis 15 years ago. 6. Obstructive sleep apnea. 7. Restrictive lung disease. 8. Reactive airway disease. 9. Obesity. 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 11. Hypertension. SOCIAL HISTORY: She does smoke. She is a heroin addict. FAMILY HISTORY: Father had a pulmonary embolism. PHYSICAL EXAMINATION: VITAL SIGNS: Afebrile. Blood pressure is 122/84, heart rate 80, oxygen satur ation 98% on 3.5 L. GENERAL: The patient is obese in no apparent distress. HEENT: Nonicteric scle jerrod. Extraocular movements are intact. Moist mucous membranes. NECK: Supple. No thyromegaly. NANDO NGS: Good effort. Decreased breath sounds. No wheezes. CARDIOVASCULAR: Regular rate and rhythm. No murmurs or gallops. ABDOMEN: Positive bowel sounds. Soft, nontender, nondistended. No hepatos plenomegaly. EXTREMITIES: 2+ pedal edema. SKIN: Multiple skin popping scars, especially in the ab domen. NEUROLOGIC: Alert and oriented x3. She is moving all 4 extremities equally. PSYCHIATRIC: Normal affect. LABORATORY DATA: White blood count is slightly elevated at 10. Sodium of 143, potassium 3.0, glucose 151. Troponin is slightly elevated at 0.047. BNP is 1740. IMAGING STUDIES: CT scan of the chest shows moderate to large volume bilaterally, segmental and subs egmental pulmonary embolism diffusely, and possible right heart strain. EKG personally reviewed and interpreted as normal sinus rhythm. No ischemic changes. ASSESSMENT: This is a 62-year-old female with history of previous pulmonary embolism and factor V Le iden presenting with new pulmonary embolism. PLAN: 1. Pulmonary embolism. We will treat with Lovenox for the next day or so, or while in the hospital. We will have to discuss warfarin versus trying another novel oral anticoagulant. She is hemodynami denny stable with minimal oxygen requirements. We also will get an echocardiogram to further evaluat e for possible right heart strain. 2. History of heroin abuse. We will use a little bit of narcotic to prevent withdrawal, and so she can finish out her hospital stay. 3. Acute diastolic congestive heart failure exacerbation. There is probably some element of right h eart failure as well. We will increase diuresis. 4. Type 2 diabetes. We will continue her insulin regimen. /[id number]/MODL
[2017-10-24] MEDS: traZODone 50 MG TAB PO SCH (21:03)
[2017-10-24] MEDS: ACETAMINOPHEN 325 MG TAB PO PRN (21:03)
[2017-10-24] MEDS: PREGABALIN 100 MG CAP PO SCH (21:03)
[2017-10-24] MEDS: oxyCODONE IR 5 MG TAB PO PRN (21:03)
[2017-10-24] MEDS: METOPROLOL TARTRATE 25 MG TAB PO SCH (21:04)
[2017-10-24] MEDS: LORazepam 1 MG TAB PO PRN (23:23)
[2017-10-24] MEDS: PROMETHAZINE HCL 25 MG/ML INJ IVP PRN (23:26)
[2017-10-25] MEDS: oxyCODONE IR 5 MG TAB PO PRN ×5 (04:15→20:48)
[2017-10-25] MEDS: ENOXAPARIN 120 MG/0.8 ML SYR SC SCH ×2 (04:15→16:43)
[2017-10-25 04:45] LABS: % IMMATURE GRANULYOCYTES 0.2 % (0.0-1.1); ABSOLUTE IMMATURE GRANULOCYTES 0.02 10^3/uL (0.00-0.10); ADD DIFF? NO; ADD MORPH? NO; ADD SCAN? NO; ATYPICAL LYMPHOCYTE FLAG 0 (0-99); FRAGMENT RBC FLAG 0 (0-99); HEMATOCRIT 41.2 % (38.0-47.0); HEMOGLOBIN 13.7 g/dL (12.6-16.3); LEFT SHIFT FLG 0 (0-99); LIPEMIA HEMOLYSIS FLAG 80 (0-99); MEAN CELL HEMOGLOBIN 28.8 pg (27.9-34.1); MEAN CELL HEMOGLOBIN CONCENTR. 33.3 g/dL (32.4-36.7); MEAN CELL VOLUME 86.6 fL (81.5-99.8); MEAN PLATELET VOLUME 10.6 fL (8.7-11.7); PLATELET CLUMPS FLAG 50 (0-99); PLATELET COUNT 197 10^3/uL (150-400); RED BLOOD CELL COUNT 4.76 10^6/uL (4.18-5.33); RED CELL DISTRIBUTION WIDTH 13.9 % (11.5-15.2)
[2017-10-25 05:07] LABS: ALANINE AMINOTRANSFERASE 37 IU/L (9-52); ALBUMIN 3.2 g/dL (3.5-5.0); ALKALINE PHOSPHATASE 87 IU/L (38-126); ANION GAP 11 mEq/L (8-16); ASPARTATE AMINOTRANSFERASE 24 IU/L (14-46); BILIRUBIN,TOTAL 0.8 mg/dL (0.1-1.4); CALCIUM 8.4 mg/dL (8.5-10.4); CARBON DIOXIDE 30 mEq/l (22-31); CHLORIDE 101 mEq/L (97-110); CREATININE 0.7 mg/dL (0.6-1.0); GLOMERULAR FILTRATION RATE > 60; GLUCOSE 214 mg/dL (70-100); MAGNESIUM 1.8 mg/dL (1.6-2.3); POTASSIUM 3.8 mEq/L (3.5-5.2); SODIUM 142 mEq/L (134-144); TOTAL PROTEIN 6.1 g/dL (6.3-8.2)
[2017-10-25] MEDS: NYSTATIN POWDER 15 GM BTL TP SCH ×3 (08:14→20:56)
[2017-10-25] MEDS: HYDROmorphONE/DILAUDID 1 MG/ML INJ IVP PRN ×3 (08:15→20:53)
[2017-10-25] MEDS: LISINOPRIL 10 MG TAB PO SCH (08:15)
[2017-10-25] MEDS: METOPROLOL TARTRATE 25 MG TAB PO SCH ×2 (08:15→20:49)
[2017-10-25] MEDS: FUROSEMIDE 40 MG/4 ML VIAL IVP SCH ×2 (08:15→14:13)
[2017-10-25] MEDS: METHADONE HCL 5 MG TAB PO SCH (08:15)
[2017-10-25] MEDS: PREGABALIN 100 MG CAP PO SCH ×3 (08:15→20:49)
[2017-10-25] MEDS: POTASSIUM CL 10 MEQ TAB PO SCH ×2 (08:15→14:12)
[2017-10-25] MEDS: INSULIN LISPRO 100 UNIT/ML SC SCH ×3 (08:36→18:21)
[2017-10-25] MEDS: FLUTICASONE/SALMETER 250/50MCG DISKUS IH SCH ×2 (08:50→20:22)
[2017-10-25] MEDS: TIOTROPIUM INHALER 18 MCG/DOSE 5 DOSE/MDI IH SCH (08:50)
[2017-10-25] MEDS ORDERED: FUROSEMIDE 40 MG/4 ML VIAL IVP SCH (09:00)
--- NOTE | 2017-10-25 12:08 | ASMTCMCOM ---
CM Note CM Note Notes: 10/25/2017 Case Management Note Met w/pt. Pt reports living in [place] but housing situation has changed recently and needs new place to live. She has 3 dogs she has left in the care of her former room mate. Pt is homeless. Provided information on the new intake system for the [facility]. Awaiting PT evals for assessment for possible SNF placement. Pt insurance will require a ULTC 100 application and 30 day stay in SNF. Pt reports previous SNF stay at [facility]. Pt reports in the past utilizing services from [facility] and [facility] here in [place]. Case Management d/c poc: to be determined. Case Management to follow. Date Signed: 10/25/2017 12:08 PM Electronically Signed By:Elaine Melchor RN
--- NOTE | 2017-10-25 12:15 | PDMN ---
Medical Necessity Medical necessity: Pt meets IP criteria per MD; est los >2 mn for eval/tx of PE & acute diastolic CHF exacerbation; admit for further workup, med management & monitoring; hx PE, DVTs, Factor V Leiden, heroin abuse, latent TB, diabetes, CHF , HTN, Cushings disease; per H&P & order 10/24/17
[2017-10-25] MEDS ORDERED: WARFARIN SODIUM 5 MG TAB PO ONE (13:22)
--- NOTE | 2017-10-25 13:26 | HOSPPROG ---
Hospitalist Progress Note Assessment/Plan: * acute pulmonary embolism * Continue Lovenox * She has not tolerated the novel oral anticoagulants and feels that she can manage Coumadin at home * Will start warfarin today * Echo pending * history of factor 5 Leiden * acute diastolic CHF exacerbation * Continue IV Lasix * type 2 diabetes * history of heroin abuse * Using some amount of narcotics for pain * Began with heroin again recently after her my methadone dose was decreased * YSABEL with probable cor pulmonale * Will see what echo shows * homelessness * May actually need snf for few days it has for weakness Subjective: Feels about the same. Some mild shortness of breath Objective: Vital Signs Temp Pulse Resp BP Pulse Ox 36.6 C 75 19 115/77 93 10/25/17 11:20 10/25/17 11:20 10/25/17 08:52 10/25/17 11:20 10/25/17 11:20 Microbiology 10/24/17 21:00 Respiratory Panel (PCR) - Final Nasal, Sinus - Anaerobic Tube/Swab No Organism Detected Laboratory Results 10/25/17 04:20 10/25/17 04:20 10/24/17 10/25/17 10/26/17 05:59 05:59 05:59 Intake Total 500 800 Output Total 2475 800 Balance -1975 0 PT 14.9 SEC (12.0-15.0) 10/24/17 12:40 INR 1.15 (0.83-1.16) 10/24/17 12:40 - Physical Exam Constitutional: no apparent distress, appears nourished, not in pain Eyes: anicteric sclera, EOMI Ears, Nose, Mouth, Throat: moist mucous membranes Cardiovascular: regular rate and rhythym, no murmur, rub, or gallop Respiratory: no respiratory distress, no rales or rhonchi, clear to auscultation Skin: warm Neurologic: AAOx3 Psychiatric: interacting appropriately, not anxious, not encephalopathic, thought process linear ICD10 Worksheet Patient Problems: Problems Problem Status Onset CHF (congestive heart failure) Acute Dyspnea Acute Peripheral edema Acute Abscess of abdominal wall Acute Abscess of thigh Acute Depression Acute Heroin addiction Acute MRSA (methicillin resistant Staphylococcus aureus) Acute 07/01/15 Urinary tract infection Acute
[2017-10-25] MEDS: PROMETHAZINE HCL 25 MG/ML INJ IVP PRN (20:43)
[2017-10-25] MEDS: traZODone 50 MG TAB PO SCH (20:48)
[2017-10-26] MEDS: oxyCODONE IR 5 MG TAB PO PRN ×3 (01:22→20:49)
[2017-10-26] MEDS: LORazepam 1 MG TAB PO PRN ×2 (01:23→19:35)
[2017-10-26 04:15] LABS: % IMMATURE GRANULYOCYTES 0.3 % (0.0-1.1); ABSOLUTE IMMATURE GRANULOCYTES 0.02 10^3/uL (0.00-0.10); ADD DIFF? NO; ADD MORPH? NO; ADD SCAN? NO; ATYPICAL LYMPHOCYTE FLAG 0 (0-99); FRAGMENT RBC FLAG 0 (0-99); HEMATOCRIT 39.8 % (38.0-47.0); HEMOGLOBIN 13.4 g/dL (12.6-16.3); LEFT SHIFT FLG 0 (0-99); LIPEMIA HEMOLYSIS FLAG 80 (0-99); MEAN CELL HEMOGLOBIN 29.9 pg (27.9-34.1); MEAN CELL HEMOGLOBIN CONCENTR. 33.7 g/dL (32.4-36.7); MEAN CELL VOLUME 88.8 fL (81.5-99.8); MEAN PLATELET VOLUME 10.3 fL (8.7-11.7); PLATELET CLUMPS FLAG 0 (0-99); PLATELET COUNT 193 10^3/uL (150-400); RED BLOOD CELL COUNT 4.48 10^6/uL (4.18-5.33); RED CELL DISTRIBUTION WIDTH 14.2 % (11.5-15.2)
[2017-10-26] MEDS: ENOXAPARIN 120 MG/0.8 ML SYR SC SCH ×2 (04:23→18:47)
[2017-10-26 04:25] LABS: INR 1.25 (0.83-1.16); PROTIME(PATIENT) 15.9 SEC (12.0-15.0)
[2017-10-26 04:40] LABS: ANION GAP 11 mEq/L (8-16); CALCIUM 8.2 mg/dL (8.5-10.4); CARBON DIOXIDE 30 mEq/l (22-31); CHLORIDE 100 mEq/L (97-110); CREATININE 0.8 mg/dL (0.6-1.0); GLOMERULAR FILTRATION RATE > 60; GLUCOSE 242 mg/dL (70-100); POTASSIUM 3.6 mEq/L (3.5-5.2); SODIUM 141 mEq/L (134-144)
[2017-10-26] MEDS: PROMETHAZINE HCL 25 MG/ML INJ IVP PRN ×3 (05:58→20:19)
[2017-10-26] MEDS: PREGABALIN 100 MG CAP PO SCH ×3 (08:26→22:03)
[2017-10-26] MEDS: POTASSIUM CL 10 MEQ TAB PO SCH ×2 (08:26→16:44)
[2017-10-26] MEDS: METHADONE HCL 5 MG TAB PO SCH (08:26)
[2017-10-26] MEDS: HYDROmorphONE/DILAUDID 1 MG/ML INJ IVP PRN ×3 (08:27→20:14)
[2017-10-26] MEDS: FUROSEMIDE 40 MG/4 ML VIAL IVP SCH (08:27)
[2017-10-26] MEDS: FLUTICASONE/SALMETER 250/50MCG DISKUS IH SCH ×2 (09:24→21:02)
[2017-10-26] MEDS: TIOTROPIUM INHALER 18 MCG/DOSE 5 DOSE/MDI IH SCH (09:25)
--- NOTE | 2017-10-26 10:34 | WOCRNPDOC ---
WOCRN Advanced Assessment Note - Skin Integrity Problem, Advanced Assess Left Pedal First Toe Dressing Type: Open to Air Wound Bed Constitution: Dried Exudate Skin Integrity Problem Comment: No change. Patient verbalized discomfort on this toe so wound was checked. Dressings had not been applied. Dressings are in the wound bucket. Will recheck again tuesday. Left Lower Lateral Leg Dressing Type: Open to Air Skin Integrity Problem Comment: No change. Dressings had not been applied. Will check again tuesday. Tubigrips placed from ankle to mid thigh. Education with ISAAC Soto about proper tubigrip placement. Pannus Skin Integrity Problem Comment: improved Groin Skin Integrity Problem Comment: improved Breast Dressing Type: Open to Air Skin Integrity Problem Comment: improved
[2017-10-26] MEDS: INSULIN LISPRO 100 UNIT/ML SC SCH ×3 (10:40→16:44)
[2017-10-26] MEDS: NYSTATIN POWDER 15 GM BTL TP SCH ×3 (10:41→22:03)
[2017-10-26] MEDS: METOPROLOL TARTRATE 25 MG TAB PO SCH (13:04)
[2017-10-26] MEDS: LISINOPRIL 10 MG TAB PO SCH (13:04)
--- NOTE | 2017-10-26 14:39 | HOSPPROG ---
Hospitalist Progress Note Assessment/Plan: 62 yo female with hx of Factor 5 Leiden admitted with acute PE Medically complex First encounter * acute pulmonary embolism * Continue Lovenox * She has not tolerated the novel oral anticoagulants and feels that she can manage Coumadin at home * Will start warfarin today * Echo pending-results have not been reported *Acute on chronic resp failure * history of factor 5 Leiden * acute diastolic CHF exacerbation * Continue IV Lasix *Hypotension *COPD with slight exacerbation * type 2 diabetes * history of heroin abuse * Using some amount of narcotics for pain * Began with heroin again recently after her my methadone dose was decreased * YSABEL with probable cor pulmonale * Will see what echo shows *Non compliance * homelessness * May actually need snf for few days it has for olga Plan: -Stop lasix, BB, and MARRY-I. -Consider starting noval oral AC, d/w pharmacy and CM -Check A1C -May need steroids -Schedule albuterol Subjective: Still Hypoxic. Some SOB. No cough. No CP. Leg swelling is much better Objective: Vital Signs Temp Pulse Resp BP Pulse Ox 36.9 C 82 19 95/64 L 94 10/26/17 12:00 10/26/17 12:00 10/26/17 12:00 10/26/17 12:00 10/26/17 12:00 Laboratory Results 10/26/17 04:10 10/26/17 04:10 10/25/17 10/26/17 10/27/17 05:59 05:59 05:59 Intake Total 500 1640 150 Output Total 2475 1050 400 Balance -1975 590 -250 PT 15.9 SEC (12.0-15.0) H 10/26/17 04:10 INR 1.25 (0.83-1.16) H 10/26/17 04:10 - Physical Exam Constitutional: no apparent distress Eyes: PERRL Ears, Nose, Mouth, Throat: moist mucous membranes, hearing normal Cardiovascular: regular rate and rhythym, No edema Respiratory: no respiratory distress, reduced air movement Gastrointestinal: normoactive bowel sounds, soft, non-tender abdomen Skin: warm Musculoskeletal: generalized weakness Neurologic: AAOx3 Psychiatric: interacting appropriately, not anxious, not encephalopathic ICD10 Worksheet Patient Problems: Problems Problem Status Onset CHF (congestive heart failure) Acute Dyspnea Acute Peripheral edema Acute Pulmonary emboli Acute Abscess of abdominal wall Acute Abscess of thigh Acute Depression Acute Heroin addiction Acute MRSA (methicillin resistant Staphylococcus aureus) Acute 07/01/15 Urinary tract infection Acute
--- NOTE | 2017-10-26 15:59 | ASMTCMCOM ---
CM Note CM Note Notes: CM met w/ pt for dispo planning. PT is recommending SNF. Pt reports that she will not go to rehab for 30 days in fears of losing her two dogs. Pt reports that she doesn't have anybody that can watch her dogs for her. Pt reports that she will d/c to the streets when she is medically stable. CM spoke w/ Dr. Bailon regarding d/c POC. Pt will need to be on an anticoagulant agent. CM called [facility]'s pharmacy to see if they could check how much her copay would be. [facility]'s pharmacy informed CM that most likely because pt has Medicaid it will require a prior auth. CM communicated this to Dr. Bailon. CM to follow for d/c needs. Plan: Independent Date Signed: 10/26/2017 03:58 PM Electronically Signed By:ADEEL Ramsey
[2017-10-26] MEDS ORDERED: WARFARIN SODIUM 5 MG TAB PO ONE (16:00)
[2017-10-26] MEDS ORDERED: WARFARIN SODIUM 7.5 MG TAB PO ONE (16:00)
[2017-10-26] MEDS: ALBUTEROL 200 PUFFS/18 GM MDI IH SCH ×2 (16:30→21:02)
--- NOTE | 2017-10-26 16:32 | ECHO ---
[email or web address] [address] [address] Main: [phone] Fax: Transthoracic Echocardiogram Name: ALBINO MCCRARY MR#: [id number] Study Date: 10/24/2017 Study Time: 04:19 PM Date of : 1955 Age: 62 year(s) Height: 170.2 cm (67 in.) Weight: 114.76 kg (253 lb.) BSA: 2.23 m2 Gender: Female Examination: Echo Indication: PE/CHF Image Quality: Contrast: Requested by: Bob Christensen BP: 151 mmHg/84 mmHg Heart Rate: Rhythm: Indication: PE/CHF Procedure Staff Braiding Machine Operator: Omayra Calero Reading Physician: Andrea Oneal Requesting Provider: Conclusions: Normal size left ventricle. The ejection fraction is estimated to be 65-70 %. Can not exclude a segmental wma. Mildly dilated right ventricle. Moderately reduced RV function. Mitral valve not well visualized. There is no significant mitral valve regurgitation. Aortic valve is not visualized. RSVP is 38-43mmHG.. Technically limited study - obese and flat on back.. Measurements: Chambers Valvular Assessment AV/MV Valvular Assessment TV/PV Normal Normal Normal Name Value Range Name Value Range Name Value Range Ao Batsheva (MM): 3.2 cm (2.2 cm-3.7 MV E Vmax: 0.86 m/s ( - ) TR Vmax: 2.89 mm/s ( - ) cm) MV A Vmax: 1.41 m/s ( - ) TR PGmax: 33 mmHg ( - ) LVDd (2D): 4.5 cm (3.9 cm-5.3 MV E/A: 0.61 ( - ) syst. PAP: 43 mmHg ( - ) cm) EF Range: 65-70 % Continued Measurements: Chambers Valvular Assessment AV/MV Valvular Assessment TV/PV Name Value Name Value Name Value LADs: 4.3 cm MV E/E' Septal: 14.50 CVP (est.): 10 mmHg Patient: ALBINO MCCRARY Study Date: 10/24/2017 Page 1 of 2 04:19 PM Findings: Left Ventricle: Normal size left ventricle. The ejection fraction is estimated to be 65-70 %. Can not exclude a segmental wma. Right Ventricle: Mildly dilated right ventricle. Moderately reduced RV function. Mitral Valve: Mitral valve not well visualized. There is no significant mitral valve regurgitation. Aortic Valve: Aortic valve is not visualized. Tricuspid Valve: Tricuspid valve not well visualized. RSVP is 38-43mmHG.. Pulmonic Valve: Pulmonary valve not well visualized. Pericardium: There is pericardial fat. Exam Comments: Technically limited study - obese and flat on back.. (No Signature Object) Patient: ALBINO MCCRARY Study Date: 10/24/2017 Page 2 of 2 04:19 PM [id number]
[2017-10-26] MEDS ORDERED: hydrOXYzine HCL 50 MG TAB PO PRN (19:35)
[2017-10-26] MEDS: traZODone 50 MG TAB PO SCH (20:16)
[2017-10-27] MEDS: oxyCODONE IR 5 MG TAB PO PRN ×6 (01:06→23:34)
[2017-10-27] MEDS: HYDROmorphONE/DILAUDID 1 MG/ML INJ IVP PRN ×4 (02:52→22:30)
[2017-10-27] MEDS: ENOXAPARIN 120 MG/0.8 ML SYR SC SCH ×2 (05:45→18:19)
[2017-10-27] MEDS: ALBUTEROL 200 PUFFS/18 GM MDI IH SCH ×4 (06:07→21:39)
[2017-10-27 06:11] LABS: % IMMATURE GRANULYOCYTES 0.3 % (0.0-1.1); ABSOLUTE IMMATURE GRANULOCYTES 0.02 10^3/uL (0.00-0.10); ADD DIFF? NO; ADD MORPH? NO; ADD SCAN? NO; ATYPICAL LYMPHOCYTE FLAG 0 (0-99); FRAGMENT RBC FLAG 0 (0-99); HEMATOCRIT 41.4 % (38.0-47.0); HEMOGLOBIN 13.3 g/dL (12.6-16.3); LEFT SHIFT FLG 0 (0-99); LIPEMIA HEMOLYSIS FLAG 80 (0-99); MEAN CELL HEMOGLOBIN 28.5 pg (27.9-34.1); MEAN CELL HEMOGLOBIN CONCENTR. 32.1 g/dL (32.4-36.7); MEAN CELL VOLUME 88.7 fL (81.5-99.8); MEAN PLATELET VOLUME 10.5 fL (8.7-11.7); PLATELET CLUMPS FLAG 0 (0-99); PLATELET COUNT 176 10^3/uL (150-400); RED BLOOD CELL COUNT 4.67 10^6/uL (4.18-5.33); RED CELL DISTRIBUTION WIDTH 13.9 % (11.5-15.2)
[2017-10-27 06:16] LABS: INR 1.58 (0.83-1.16)
[2017-10-27 06:46] LABS: ANION GAP 7 mEq/L (8-16); CALCIUM 8.4 mg/dL (8.5-10.4); CARBON DIOXIDE 32 mEq/l (22-31); CHLORIDE 101 mEq/L (97-110); CREATININE 0.6 mg/dL (0.6-1.0); GLOMERULAR FILTRATION RATE > 60; GLUCOSE 160 mg/dL (70-100); POTASSIUM 4.2 mEq/L (3.5-5.2); SODIUM 140 mEq/L (134-144)
[2017-10-27] MEDS ORDERED: MAGNESIUM HYDROXIDE 30 ML UDCUP PO PRN (06:53)
[2017-10-27] MEDS ORDERED: BISACODYL 10 MG SUPP PR PRN (06:53)
[2017-10-27] MEDS ORDERED: LACTULOSE 20 GM/30 ML UDCUP PO PRN (06:53)
[2017-10-27] MEDS: SENNOSIDES/DOCUSATE SODIUM TAB PO SCH ×2 (08:52→22:30)
[2017-10-27] MEDS: POTASSIUM CL 10 MEQ TAB PO SCH ×2 (08:53→15:57)
[2017-10-27] MEDS: LORazepam 1 MG TAB PO PRN (08:53)
[2017-10-27] MEDS: PREGABALIN 100 MG CAP PO SCH ×3 (08:53→22:29)
[2017-10-27] MEDS: INSULIN LISPRO 100 UNIT/ML SC SCH ×3 (08:53→15:57)
[2017-10-27] MEDS: METHADONE HCL 5 MG TAB PO SCH (08:53)
[2017-10-27] MEDS: NYSTATIN POWDER 15 GM BTL TP SCH ×3 (08:54→22:40)
[2017-10-27] MEDS: FLUTICASONE/SALMETER 250/50MCG DISKUS IH SCH ×2 (09:49→21:39)
[2017-10-27] MEDS: TIOTROPIUM INHALER 18 MCG/DOSE 5 DOSE/MDI IH SCH (09:50)
--- NOTE | 2017-10-27 12:40 | ASMTCMCOM ---
CM Note CM Note Notes: PT worked w/ pt this AM and reports that pt is agreeable to going to rehab and have found someone to watch her dogs. CM completed ULTC-100 application. CM called Avi at [facility] and left a msg inquiring about the assessors name and phone number. CM put the ULTC-100 in pts chart and faxed attached it to [employer]scripts. CM met w/ pt for dispo planning. Pt is agreeable to having a referral made to [facility]. CM to follow. Plan: SNF pending ultc-100 approval Date Signed: 10/27/2017 12:39 PM Electronically Signed By:ADEEL Ramsey
--- NOTE | 2017-10-27 13:22 | HOSPPROG ---
Hospitalist Progress Note Assessment/Plan: 62 yo female with hx of Factor 5 Leiden admitted with acute PE Medically complex * acute pulmonary embolism * Continue Lovenox * She has not tolerated the novel oral anticoagulants and feels that she can manage Coumadin at home * cont warfarin * Echo: preserved LVEF *Acute on chronic resp failure * history of factor 5 Leiden * acute diastolic CHF exacerbation * Change to PO lasix *Hypotension, resolved, due to diuretics *COPD with slight exacerbation * type 2 diabetes, A1C is 8 * history of heroin abuse * Using some amount of narcotics for pain * Began with heroin again recently after her my methadone dose was decreased * YSABEL with probable cor pulmonale * Will see what echo shows *Non compliance * homelessness * May actually need snf for few days it has for olga Plan: -Start PO Lasix daily -Hold BB, and MARRY-I. -cont Warfarin, we had an extensive conversation about this and she wants to stay with Coumadin. The other agents are too expensive. She can f/u with [facility] for INR check -Start Prednisone -Schedule albuterol -We discussed modifying her insulin regimen, but she is not ready for this at this time. She wants to be able to have the least amount of medications necessary. -SNF upon discharge Subjective: Still SOB, some cought. Afebrile. Some leg edema Objective: Vital Signs Temp Pulse Resp BP Pulse Ox 36.7 C 89 20 121/75 H 95 10/27/17 12:00 10/27/17 12:00 10/27/17 12:00 10/27/17 12:00 10/27/17 12:00 Laboratory Results 10/27/17 05:49 10/27/17 05:49 10/26/17 10/27/17 10/28/17 05:59 05:59 05:59 Intake Total 1640 650 Output Total 1050 400 Balance 590 250 PT 19.0 SEC (12.0-15.0) H 10/27/17 05:49 INR 1.58 (0.83-1.16) H 10/27/17 05:49 - Time Spent With Patient Time Spent with Patient: greater than 35 minutes Time Spent with Patient: Greater than 35 minutes spent on this patients care, greater than 50% of time spent counseling, educating, and coordinating care regarding the above mentioned plan. - Physical Exam Constitutional: no apparent distress Eyes: PERRL, EOMI Ears, Nose, Mouth, Throat: moist mucous membranes Cardiovascular: regular rate and rhythym, edema, No JVD Respiratory: reduced air movement Gastrointestinal: normoactive bowel sounds, soft, non-tender abdomen Genitourinary: no bladder fullness Skin: warm Musculoskeletal: full muscle strength, no muscle tenderness Neurologic: AAOx3 Psychiatric: interacting appropriately, not anxious, not encephalopathic, thought process linear ICD10 Worksheet Patient Problems: Problems Problem Status Onset CHF (congestive heart failure) Acute Dyspnea Acute Peripheral edema Acute Pulmonary emboli Acute Abscess of abdominal wall Acute Abscess of thigh Acute Depression Acute Heroin addiction Acute MRSA (methicillin resistant Staphylococcus aureus) Acute 07/01/15 Urinary tract infection Acute
[2017-10-27] MEDS: POLYETHYLENE GLYCOL 3350 17 GM PKT PO PRN (14:05)
[2017-10-27] MEDS: predniSONE 20 MG TAB PO SCH (14:07)
[2017-10-27] MEDS ORDERED: WARFARIN SODIUM 5 MG TAB PO ONE (16:00)
[2017-10-27] MEDS: traZODone 50 MG TAB PO SCH (22:30)
[2017-10-28] MEDS: oxyCODONE IR 5 MG TAB PO PRN ×5 (03:34→21:32)
[2017-10-28] MEDS: HYDROmorphONE/DILAUDID 1 MG/ML INJ IVP PRN ×4 (04:31→23:33)
[2017-10-28 05:03] LABS: INR 2.25 (0.83-1.16); PROTIME(PATIENT) 24.9 SEC (12.0-15.0)
[2017-10-28] MEDS: ALBUTEROL 200 PUFFS/18 GM MDI IH SCH ×4 (05:35→20:13)
[2017-10-28] MEDS: ENOXAPARIN 120 MG/0.8 ML SYR SC SCH ×2 (06:50→17:24)
[2017-10-28] MEDS: INSULIN LISPRO 100 UNIT/ML SC SCH ×3 (08:01→17:24)
[2017-10-28] MEDS ORDERED: INSULIN LISPRO 100 UNIT/ML SC ONE (08:05)
[2017-10-28] MEDS: METHADONE HCL 5 MG TAB PO SCH (09:16)
[2017-10-28] MEDS: POTASSIUM CL 10 MEQ TAB PO SCH ×2 (09:16→16:37)
[2017-10-28] MEDS: PREGABALIN 100 MG CAP PO SCH ×3 (09:16→21:32)
[2017-10-28] MEDS: FLUTICASONE/SALMETER 250/50MCG DISKUS IH SCH ×2 (09:59→20:13)
[2017-10-28] MEDS: TIOTROPIUM INHALER 18 MCG/DOSE 5 DOSE/MDI IH SCH (10:01)
[2017-10-28] MEDS: NYSTATIN POWDER 15 GM BTL TP SCH ×2 (10:03→17:26)
[2017-10-28] MEDS: SENNOSIDES/DOCUSATE SODIUM TAB PO SCH ×2 (10:04→21:32)
[2017-10-28] MEDS: predniSONE 20 MG TAB PO SCH (10:04)
--- NOTE | 2017-10-28 10:53 | ASMTCMCOM ---
CM Note CM Note Notes: Debbie Ortega from [facility] came and assess pt. Pt has been approved for 30 day rehab. [facility] is unable to accept at this time due to pts ACC Medicaid eligibility. 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 CM contacted [facility] to see if they can screen her for LTC medicaid. New referrals to be made to SNF in [place] and to [facility]. Pt prefers to be in [place] to be closer to her dogs but her second choice is [facility]. CM to follow. Plan: SNF Date Signed: 10/28/2017 10:52 AM Electronically Signed By:ADEEL Ramsey
--- NOTE | 2017-10-28 14:18 | HOSPPROG ---
Hospitalist Progress Note Assessment/Plan: 62 yo female with hx of Factor 5 Leiden admitted with acute PE Medically complex * acute pulmonary embolism * Continue Lovenox/warfarin. Can stop Lovenox tomorrow * She has not tolerated the novel oral anticoagulants and feels that she can manage Coumadin at home * Echo: preserved LVEF. No heart strain *Acute on chronic resp failure, multifactorial to include PE, COPD-E * history of factor 5 Leiden * acute diastolic CHF exacerbation * Cont PO lasix *Hypotension, resolved, due to diuretics *COPD with exacerbation, improving on prednisone * type 2 diabetes, A1C is 8, Hyperglycemia, steroid inuce * history of heroin abuse * Using some amount of narcotics for pain * Began with heroin again recently after her my methadone dose was decreased * YSABEL with probable cor pulmonale * Will see what echo shows *Non compliance * homelessness * May actually need snf for few days it has for weakness Plan: -cont Lasix -cont Prednisone -Hold BB and MARRY-I (She has diastolic failure) -Cont warfarin. Stop Lovenox tomorrow. Newer agents are too expensive. She can f /u with [facility] for INR check -Schedule albuterol -Start Lantus today. -Cont pain meds -SNF upon discharge, Medicaid approval is pending Full Code Keep inpatient Subjective: breathing fitzpatrick she is better. Still no CP. some leg swelling. No cough. Denies pain currently Objective: Vital Signs Temp Pulse Resp BP Pulse Ox 36.4 C 87 16 135/80 H 93 10/28/17 11:55 10/28/17 11:55 10/28/17 11:55 10/28/17 11:55 10/28/17 11:55 Laboratory Results 10/27/17 05:49 10/27/17 05:49 10/27/17 10/28/17 10/29/17 05:59 05:59 05:59 Intake Total 650 1999 Output Total 400 Balance 250 2000 PT 24.9 SEC (12.0-15.0) H 10/28/17 04:40 INR 2.25 (0.83-1.16) H 10/28/17 04:40 - Physical Exam Constitutional: no apparent distress Eyes: PERRL, EOMI Ears, Nose, Mouth, Throat: moist mucous membranes, hearing normal Cardiovascular: regular rate and rhythym, edema (LE), No JVD Respiratory: reduced air movement, expiratory wheeze Gastrointestinal: normoactive bowel sounds, soft, non-tender abdomen Skin: warm Musculoskeletal: generalized weakness Neurologic: AAOx3 Psychiatric: interacting appropriately, not anxious, not encephalopathic, thought process linear Lymph, Heme, Immunologic: No petechiae ICD10 Worksheet Patient Problems: Problems Problem Status Onset CHF (congestive heart failure) Acute Dyspnea Acute Peripheral edema Acute Pulmonary emboli Acute Abscess of abdominal wall Acute Abscess of thigh Acute Depression Acute Heroin addiction Acute MRSA (methicillin resistant Staphylococcus aureus) Acute 07/01/15 Urinary tract infection Acute
[2017-10-28] MEDS: INSULIN GLARGINE 100 UNITS/ML SYRINGE SC SCH (14:43)
--- NOTE | 2017-10-28 15:24 | WOCRNPDOC ---
WOCRN Advanced Assessment Note - Skin Integrity Problem, Advanced Assess Left Pedal First Toe Dressing Type: Open to Air (patient took dressing off to shower) Exudate Amount: Scant Exudate Color: Reddish/Yellow Exudate Characteristic(s): Serosanguinous Integumentary Issue Intervention: Dressing Applied, Dressing Changed, Dressing Initialed & Dated, Silver Gel Applied Albertina Wound Tissue: Calloused Albertina Wound Swelling: None Wound Bed Color: Red Wound Bed Constitution: Red/[place] - Non Granular Tissue (100%) Site Odor: None Skin Integrity Problem Comment: Diabetic foot ulcer on the distal aspect of the L great toe. Patient removed dressing to shower, and there was a flap of loose necrotic tissue which was mechanically debdrided using NS and gauze. Wound bed is now 100% red, non-granular tissue, chronic in appearance. Periwound callous observed, w/ distinct margins. No erythema or associated swelling. Changed order to Hydrofera Blue Ready and Allevyn. Left Lower Lateral Leg Dressing Type: Hydrocolloid Dressing Description: Intact Exudate Amount: Scant Exudate Color: Reddish/Yellow Exudate Characteristic(s): Serosanguinous Integumentary Issue Intervention: Dressing Changed, Dressing Initialed & Dated, Silver Gel Applied Albertina Wound Tissue: Venous Dermatitis, Dry Albertina Wound Swelling: Mild Wound Bed Color: Red Wound Bed Constitution: Red/[place] - Non Granular Tissue Wound Edges: Well Defined Site Odor: None Skin Integrity Problem Comment: Small, circular-shaped wound noted on L lateral lower leg, previously eschar-filled. During assessment today, eschar has been entirely debrided and underlying tissue is red, non-granular. No periwound erythema or swelling. Changed order to Silvasorb wound gel and Allevyn.
[2017-10-28] MEDS ORDERED: WARFARIN SODIUM 2.5 MG TAB PO ONE (16:00)
[2017-10-28] MEDS: FUROSEMIDE 20 MG TAB PO SCH (16:38)
[2017-10-28] MEDS: POLYETHYLENE GLYCOL 3350 17 GM PKT PO PRN (17:36)
[2017-10-28] MEDS: traZODone 50 MG TAB PO SCH (21:32)
[2017-10-28] MEDS: LORazepam 1 MG TAB PO PRN (23:33)
[2017-10-29] MEDS: oxyCODONE IR 5 MG TAB PO PRN ×5 (03:47→21:54)
[2017-10-29] MEDS: NYSTATIN POWDER 15 GM BTL TP SCH ×3 (03:55→16:43)
[2017-10-29] MEDS: HYDROmorphONE/DILAUDID 1 MG/ML INJ IVP PRN ×4 (05:35→23:41)
[2017-10-29] MEDS: ALBUTEROL 200 PUFFS/18 GM MDI IH SCH ×4 (05:46→23:25)
[2017-10-29 06:56] LABS: % IMMATURE GRANULYOCYTES 0.6 % (0.0-1.1); ABSOLUTE IMMATURE GRANULOCYTES 0.05 10^3/uL (0.00-0.10); ADD DIFF? NO; ADD MORPH? NO; ADD SCAN? NO; ATYPICAL LYMPHOCYTE FLAG 0 (0-99); FRAGMENT RBC FLAG 0 (0-99); HEMATOCRIT 41.9 % (38.0-47.0); HEMOGLOBIN 13.8 g/dL (12.6-16.3); LEFT SHIFT FLG 0 (0-99); LIPEMIA HEMOLYSIS FLAG 80 (0-99); MEAN CELL HEMOGLOBIN 29.4 pg (27.9-34.1); MEAN CELL HEMOGLOBIN CONCENTR. 32.9 g/dL (32.4-36.7); MEAN CELL VOLUME 89.1 fL (81.5-99.8); MEAN PLATELET VOLUME 10.5 fL (8.7-11.7); PLATELET CLUMPS FLAG 0 (0-99); PLATELET COUNT 199 10^3/uL (150-400); RED CELL DISTRIBUTION WIDTH 13.9 % (11.5-15.2)
[2017-10-29 07:05] LABS: INR 2.18 (0.83-1.16); PROTIME(PATIENT) 24.3 SEC (12.0-15.0)
[2017-10-29 07:06] LABS: ANION GAP 11 mEq/L (8-16); CALCIUM 8.9 mg/dL (8.5-10.4); CARBON DIOXIDE 32 mEq/l (22-31); CHLORIDE 97 mEq/L (97-110); CREATININE 0.6 mg/dL (0.6-1.0); GLOMERULAR FILTRATION RATE > 60; GLUCOSE 184 mg/dL (70-100); POTASSIUM 4.8 mEq/L (3.5-5.2); SODIUM 140 mEq/L (134-144)
[2017-10-29] MEDS: predniSONE 20 MG TAB PO SCH (08:23)
[2017-10-29] MEDS: METHADONE HCL 5 MG TAB PO SCH (08:24)
[2017-10-29] MEDS: SENNOSIDES/DOCUSATE SODIUM TAB PO SCH ×2 (08:24→19:52)
[2017-10-29] MEDS: FUROSEMIDE 20 MG TAB PO SCH (08:25)
[2017-10-29] MEDS: POTASSIUM CL 10 MEQ TAB PO SCH ×2 (08:25→14:41)
[2017-10-29] MEDS: PREGABALIN 100 MG CAP PO SCH ×3 (08:25→21:51)
[2017-10-29] MEDS: INSULIN LISPRO 100 UNIT/ML SC SCH ×3 (08:25→16:37)
[2017-10-29] MEDS: FLUTICASONE/SALMETER 250/50MCG DISKUS IH SCH ×2 (10:05→19:33)
[2017-10-29] MEDS: INSULIN GLARGINE 100 UNITS/ML SYRINGE SC SCH (10:15)
[2017-10-29] MEDS ORDERED: FUROSEMIDE 20 MG TAB PO ONE (14:26)
--- NOTE | 2017-10-29 14:30 | HOSPPROG ---
Hospitalist Progress Note Assessment/Plan: 62 yo female with hx of Factor 5 Leiden admitted with acute PE Medically complex -INR is at goal today -still with leg swelling -breathing is better * acute pulmonary embolism * Continue Lovenox/warfarin. Can stop LovenoX today as INR is therapeutic for over 24 hrs * She has not tolerated the novel oral anticoagulants and feels that she can manage Coumadin at home * Echo: preserved LVEF. No heart strain *Acute on chronic resp failure, multifactorial to include PE, COPD-E, CHF-E * history of factor 5 Leiden * acute diastolic CHF exacerbation * Cont PO lasix * Will provide one additional dose today *Hypotension, resolved, due to diuretics, gentle diuresis *COPD with exacerbation, improving on prednisone * type 2 diabetes, A1C is 8, Hyperglycemia, steroid inuce * history of heroin abuse * Using some amount of narcotics for pain * Began with heroin again recently after her my methadone dose was decreased * YSABEL with probable cor pulmonale * Will see what echo shows *Non compliance * homelessness * May actually need snf for few days it has for weakness Plan: -cont Lasix -cont Prednisone, no changes -Hold BB and MARRY-I (She has diastolic failure) -Cont warfarin. Stop Lovenox today. Newer agents are too expensive. She can f/u with [facility] for INR check -Schedule albuterol -Start Lantus today. May need further adjustment as glucose is still elevated -Cont pain meds -SNF upon discharge, Medicaid approval is pending Full Code Keep inpatient Subjective: no cp or SOB. Breathing is better. Still with leg swelling. No palpitations. Sugar mgmt is better. NO N/V. Objective: Vital Signs Temp Pulse Resp BP Pulse Ox 36.9 C 83 20 118/77 96 10/29/17 11:27 10/29/17 11:27 10/29/17 11:27 10/29/17 11:27 10/29/17 11:27 Laboratory Results 10/29/17 05:35 10/29/17 05:35 10/28/17 10/29/17 10/30/17 05:59 05:59 05:59 Intake Total 1999 1680 Balance 1999 1680 PT 24.3 SEC (12.0-15.0) H 10/29/17 05:35 INR 2.18 (0.83-1.16) H 10/29/17 05:35 - Physical Exam Constitutional: no apparent distress Eyes: PERRL, EOMI Ears, Nose, Mouth, Throat: moist mucous membranes, no oral mucosal ulcers Cardiovascular: regular rate and rhythym, edema Respiratory: reduced air movement Gastrointestinal: normoactive bowel sounds, soft, non-tender abdomen Skin: warm, normal color Musculoskeletal: No generalized weakness Neurologic: AAOx3 Psychiatric: interacting appropriately, not anxious, not encephalopathic, thought process linear ICD10 Worksheet Patient Problems: Problems Problem Status Onset CHF (congestive heart failure) Acute Dyspnea Acute Peripheral edema Acute Pulmonary emboli Acute Abscess of abdominal wall Acute Abscess of thigh Acute Depression Acute Heroin addiction Acute MRSA (methicillin resistant Staphylococcus aureus) Acute 07/01/15 Urinary tract infection Acute
[2017-10-29] MEDS ORDERED: WARFARIN SODIUM 5 MG TAB PO ONE (16:00)
[2017-10-29] MEDS: TIOTROPIUM INHALER 18 MCG/DOSE 5 DOSE/MDI IH SCH (17:02)
[2017-10-29] MEDS: LORazepam 1 MG TAB PO PRN (19:52)
[2017-10-29] MEDS: traZODone 50 MG TAB PO SCH (21:51)
[2017-10-30] MEDS: oxyCODONE IR 5 MG TAB PO PRN ×6 (02:03→21:42)
[2017-10-30] MEDS: ALBUTEROL 200 PUFFS/18 GM MDI IH SCH ×4 (04:16→23:27)
[2017-10-30] MEDS: NYSTATIN POWDER 15 GM BTL TP SCH ×4 (05:44→20:30)
[2017-10-30] MEDS: HYDROmorphONE/DILAUDID 1 MG/ML INJ IVP PRN ×2 (06:14→12:35)
[2017-10-30 06:41] LABS: INR 2.08 (0.83-1.16); PROTIME(PATIENT) 23.4 SEC (12.0-15.0)
[2017-10-30] MEDS: INSULIN LISPRO 100 UNIT/ML SC SCH ×3 (07:32→15:42)
[2017-10-30] MEDS: predniSONE 20 MG TAB PO SCH (08:28)
[2017-10-30] MEDS: PREGABALIN 100 MG CAP PO SCH ×3 (08:29→20:29)
[2017-10-30] MEDS: SENNOSIDES/DOCUSATE SODIUM TAB PO SCH ×2 (08:29→20:28)
[2017-10-30] MEDS: METHADONE HCL 5 MG TAB PO SCH ×2 (08:29→20:28)
[2017-10-30] MEDS: INSULIN GLARGINE 100 UNITS/ML SYRINGE SC SCH (08:30)
[2017-10-30] MEDS: FUROSEMIDE 20 MG TAB PO SCH ×2 (08:30→15:22)
[2017-10-30] MEDS: FLUTICASONE/SALMETER 250/50MCG DISKUS IH SCH ×2 (10:33→20:17)
[2017-10-30] MEDS: TIOTROPIUM INHALER 18 MCG/DOSE 5 DOSE/MDI IH SCH (10:35)
[2017-10-30] MEDS ORDERED: predniSONE 20 MG TAB PO SCH (11:20)
[2017-10-30] MEDS ORDERED: INSULIN GLARGINE 100 UNITS/ML SYRINGE SC SCH (11:30)
[2017-10-30] MEDS: POTASSIUM CL 10 MEQ TAB PO SCH (11:33)
--- NOTE | 2017-10-30 13:41 | HOSPPROG ---
Hospitalist Progress Note Assessment/Plan: 62 yo female with hx of Factor 5 Leiden admitted with acute P.E., COPD-E, Diastolic CHF, and chronic pain syndrome. Medically complex -INR is at goal today -still with leg swelling -breathing is better * acute pulmonary embolism * Continue warfarin * Echo: preserved LVEF. No heart strain *Acute on chronic resp failure, multifactorial to include PE, COPD-E, CHF-E * history of factor 5 Leiden * acute diastolic CHF exacerbation * Cont PO lasix * Will provide one additional dose today *Hypotension, resolved, due to diuretics, gentle diuresis *COPD with exacerbation, improving on prednisone * type 2 diabetes, A1C is 8, Hyperglycemia, steroid induced * history of heroin abuse and chronic pain syndrome * Using some amount of narcotics for pain * Began with heroin again recently after her my methadone dose was decreased * YSABEL with probable cor pulmonale * Will see what echo shows *Non compliance * homelessness * May actually need snf for few days it has for weakness Plan: -increase Lasix -increase pain meds -decrease prednisone -Hold BB and MARRY-I (She has diastolic failure) -Cont warfarin -Schedule albuterol -cont Lantus, give additional as needed. Glucose should improve with drop in prednisone -SNF upon discharge, Medicaid approval is pending Full Code Keep inpatient Subjective: c/o generalized pain. Still with leg swelling. breathing is better. NO CP. No SOB. on 2 L o2 Objective: Vital Signs Temp Pulse Resp BP Pulse Ox 36.5 C 88 16 120/72 92 10/30/17 11:11 10/30/17 12:48 10/30/17 12:48 10/30/17 11:11 10/30/17 12:48 Laboratory Results 10/29/17 05:35 10/29/17 05:35 10/29/17 10/30/17 10/31/17 05:59 05:59 05:59 Intake Total 1680 1820 Output Total 2100 Balance 1680 -280 PT 23.4 SEC (12.0-15.0) H 10/30/17 06:20 INR 2.08 (0.83-1.16) H 10/30/17 06:20 - Physical Exam Constitutional: no apparent distress Eyes: PERRL Ears, Nose, Mouth, Throat: moist mucous membranes, hearing normal, ears appear normal Cardiovascular: regular rate and rhythym, edema Respiratory: no respiratory distress, no rales or rhonchi Gastrointestinal: normoactive bowel sounds, soft, non-tender abdomen Skin: warm Musculoskeletal: generalized weakness Neurologic: AAOx3 Psychiatric: interacting appropriately, not anxious, not encephalopathic Lymph, Heme, Immunologic: No petechiae ICD10 Worksheet Patient Problems: Problems Problem Status Onset CHF (congestive heart failure) Acute Dyspnea Acute Peripheral edema Acute Pulmonary emboli Acute Abscess of abdominal wall Acute Abscess of thigh Acute Depression Acute Heroin addiction Acute MRSA (methicillin resistant Staphylococcus aureus) Acute 07/01/15 Urinary tract infection Acute
[2017-10-30] MEDS ORDERED: WARFARIN SODIUM 7.5 MG TAB PO ONE (16:00)
[2017-10-30] MEDS: ACETAMINOPHEN 325 MG TAB PO PRN (17:57)
[2017-10-30] MEDS: traZODone 50 MG TAB PO SCH ×2 (20:27→20:28)
[2017-10-30] MEDS: LORazepam 1 MG TAB PO PRN (20:29)
[2017-10-30] MEDS ORDERED: FUROSEMIDE 20 MG TAB PO SCH (21:00)
[2017-10-31] MEDS: oxyCODONE IR 5 MG TAB PO PRN ×6 (04:41→22:02)
[2017-10-31] MEDS: ALBUTEROL 200 PUFFS/18 GM MDI IH SCH ×4 (05:03→22:46)
[2017-10-31 05:36] LABS: % IMMATURE GRANULYOCYTES 0.7 % (0.0-1.1); ABSOLUTE IMMATURE GRANULOCYTES 0.06 10^3/uL (0.00-0.10); ADD DIFF? NO; ADD MORPH? NO; ADD SCAN? NO; ATYPICAL LYMPHOCYTE FLAG 0 (0-99); FRAGMENT RBC FLAG 0 (0-99); HEMATOCRIT 43.6 % (38.0-47.0); HEMOGLOBIN 14.2 g/dL (12.6-16.3); LEFT SHIFT FLG 0 (0-99); LIPEMIA HEMOLYSIS FLAG 80 (0-99); MEAN CELL HEMOGLOBIN 28.7 pg (27.9-34.1); MEAN CELL HEMOGLOBIN CONCENTR. 32.6 g/dL (32.4-36.7); MEAN CELL VOLUME 88.1 fL (81.5-99.8); MEAN PLATELET VOLUME 10.6 fL (8.7-11.7); PLATELET CLUMPS FLAG 20 (0-99); PLATELET COUNT 213 10^3/uL (150-400); RED BLOOD CELL COUNT 4.95 10^6/uL (4.18-5.33); RED CELL DISTRIBUTION WIDTH 13.7 % (11.5-15.2)
[2017-10-31 05:42] LABS: ANION GAP 9 mEq/L (8-16); CALCIUM 8.9 mg/dL (8.5-10.4); CARBON DIOXIDE 35 mEq/l (22-31); CHLORIDE 94 mEq/L (97-110); CREATININE 0.6 mg/dL (0.6-1.0); GLOMERULAR FILTRATION RATE > 60; GLUCOSE 148 mg/dL (70-100); POTASSIUM 4.3 mEq/L (3.5-5.2); SODIUM 138 mEq/L (134-144)
[2017-10-31 05:45] LABS: INR 2.6 (0.83-1.16); PROTIME(PATIENT) 27.8 SEC (12.0-15.0)
[2017-10-31] MEDS: FUROSEMIDE 20 MG TAB PO SCH ×2 (07:58→15:44)
[2017-10-31] MEDS: PREGABALIN 100 MG CAP PO SCH ×3 (07:58→21:56)
[2017-10-31] MEDS: SENNOSIDES/DOCUSATE SODIUM TAB PO SCH ×2 (07:59→21:56)
[2017-10-31] MEDS: METHADONE HCL 5 MG TAB PO SCH ×2 (07:59→21:56)
[2017-10-31] MEDS: INSULIN LISPRO 100 UNIT/ML SC SCH ×3 (08:30→17:34)
[2017-10-31] MEDS: NYSTATIN POWDER 15 GM BTL TP SCH ×3 (08:45→22:03)
[2017-10-31] MEDS: INSULIN GLARGINE 100 UNITS/ML SYRINGE SC SCH (08:51)
[2017-10-31] MEDS: FLUTICASONE/SALMETER 250/50MCG DISKUS IH SCH ×2 (10:19→20:12)
[2017-10-31] MEDS: TIOTROPIUM INHALER 18 MCG/DOSE 5 DOSE/MDI IH SCH (10:38)
--- NOTE | 2017-10-31 13:43 | HOSPPROG ---
Hospitalist Progress Note Assessment/Plan: 62 yo female with hx of Factor 5 Leiden admitted with acute P.E., COPD-E, Diastolic CHF, and chronic pain syndrome. # acute pulmonary embolism- SOB improving but still difficult when exerting- Echo: preserved LVEF. No heart strain- INR 2.6 CTA (personally reviewed and interpreted) moderate to large bilateral PE - Continue warfarin - follow INR # Acute on chronic resp failure, multifactorial including PE, COPD and chronic HF - continue anticoagulation - cont PO lasix - cont tiotropium - # history of factor 5 Leiden- INR therapeutic # chronic diastolic CHF exacerbation - Cont PO lasix - cont BP control # Hypotension, resolved, due to diuretics, gentle diuresis # COPD with exacerbation- clinically improving - oxygen saturations 93% on RA this am - dc prednisone burst - cont tiotropium # type 2 diabetes, A1C is 8, Hyperglycemia, steroid induced - dc prednisone - cont SSI # history of heroin abuse and chronic pain syndrome- Began with heroin again recently after her my methadone dose was decreased - Using some amount of narcotics for pain # YSABEL # morbid obesity- 115 Kg # homelessness- working on SNF placement I have discussed the case with CM - working on SNF placement Subjective: lungs are burning Objective: Vital Signs Temp Pulse Resp BP Pulse Ox 36.6 C 81 20 120/73 94 10/31/17 11:47 10/31/17 11:47 10/31/17 11:47 10/31/17 11:47 10/31/17 11:47 Laboratory Results 10/31/17 04:50 10/31/17 05:33 10/30/17 10/31/17 11/01/17 05:59 05:59 05:59 Intake Total 1820 1810 Output Total 2100 1800 900 Balance -280 10 -900 PT 27.8 SEC (12.0-15.0) H 10/31/17 04:50 INR 2.60 (0.83-1.16) H 10/31/17 04:50 - Physical Exam Constitutional: obese Eyes: anicteric sclera Ears, Nose, Mouth, Throat: moist mucous membranes Cardiovascular: regular rate and rhythym, systolic murmur Respiratory: no respiratory distress, rhonchi, No expiratory wheeze Gastrointestinal: normoactive bowel sounds Genitourinary: no bladder fullness Skin: warm Musculoskeletal: No asymmetric calves Neurologic: AAOx3 Psychiatric: interacting appropriately, not anxious Lymph, Heme, Immunologic: no cervical LAD ICD10 Worksheet Patient Problems: Problems Problem Status Onset CHF (congestive heart failure) Acute Dyspnea Acute Peripheral edema Acute Pulmonary emboli Acute Abscess of abdominal wall Acute Abscess of thigh Acute Depression Acute Heroin addiction Acute MRSA (methicillin resistant Staphylococcus aureus) Acute 07/01/15 Urinary tract infection Acute
[2017-10-31] MEDS ORDERED: WARFARIN SODIUM 2.5 MG TAB PO ONE (16:00)
[2017-11-01] MEDS: oxyCODONE IR 5 MG TAB PO PRN ×6 (04:45→21:53)
[2017-11-01] MEDS: ALBUTEROL 200 PUFFS/18 GM MDI IH SCH ×4 (06:02→21:29)
[2017-11-01] MEDS: INSULIN LISPRO 100 UNIT/ML SC SCH ×3 (07:52→15:52)
[2017-11-01] MEDS: SENNOSIDES/DOCUSATE SODIUM TAB PO SCH ×2 (08:51→21:54)
[2017-11-01] MEDS: ACETAMINOPHEN 325 MG TAB PO PRN ×2 (08:51→13:11)
[2017-11-01] MEDS: PREGABALIN 100 MG CAP PO SCH ×3 (08:52→21:53)
[2017-11-01] MEDS: FUROSEMIDE 20 MG TAB PO SCH ×2 (08:52→14:56)
[2017-11-01] MEDS: METHADONE HCL 5 MG TAB PO SCH (08:52)
[2017-11-01] MEDS: INSULIN GLARGINE 100 UNITS/ML SYRINGE SC SCH (08:53)
[2017-11-01] MEDS: NYSTATIN POWDER 15 GM BTL TP SCH ×2 (08:55→17:43)
[2017-11-01 10:28] LABS: HEMATOCRIT 43.2 % (38.0-47.0); HEMOGLOBIN 14.5 g/dL (12.6-16.3); MEAN CELL HEMOGLOBIN 29.3 pg (27.9-34.1); MEAN CELL HEMOGLOBIN CONCENTR. 33.6 g/dL (32.4-36.7); MEAN CELL VOLUME 87.3 fL (81.5-99.8); RED BLOOD CELL COUNT 4.95 10^6/uL (4.18-5.33); RED CELL DISTRIBUTION WIDTH 13.9 % (11.5-15.2)
[2017-11-01 10:36] LABS: INR 2.52 (0.83-1.16); PROTIME(PATIENT) 27.1 SEC (12.0-15.0)
[2017-11-01] MEDS: FLUTICASONE/SALMETER 250/50MCG DISKUS IH SCH ×2 (10:45→21:29)
[2017-11-01] MEDS: TIOTROPIUM INHALER 18 MCG/DOSE 5 DOSE/MDI IH SCH (10:45)
--- NOTE | 2017-11-01 11:29 | WOCRNPDOC ---
WOCRN Advanced Assessment Note - Skin Integrity Problem, Advanced Assess Left First Toe Dressing Type: Allevyn Life, Coban, Hydrofera Blue Ready, Breanna Dressing Description: Saturated (possible wet from shower) Exudate Amount: Moderate Exudate Color: Reddish/Yellow Exudate Characteristic(s): Serosanguinous Integumentary Issue Intervention: Dressing Changed Albertina Wound Tissue: Macerated, Calloused Albertina Wound Swelling: Mild Wound Bed Color: Red Wound Bed Constitution: Granulation Tissue Site Odor: Foul Skin Integrity Problem Comment: Dressing saturated, combination of increased drainage from wound and dressing possibly wet from shower. Dimensions are unchanged today, but there is increased odor to site. Applied antimicrobial solution to wound for 5 minutes, then applied silver alginate dressing to reduce maceration. Will change dressing orders to every other day instead of q3 to help manage moisture. Report given to correctional sergeant Laura.
--- NOTE | 2017-11-01 11:48 | PDIAF ---
- Diagnosis Diagnosis: hypoxic resp failure Code Status: Full Code - Medication Management Discharge Medications: Medications to Continue on Transfer Albuterol [Proventil Inhaler HFA (*)] 1 - 2 puffs IH QID PRN #30 mdi 05/02/17 [ Last Taken 10/17/17] Fluticasone/Salmeter 250/50Mcg [Advair 250/50 (*)] 1 puffs IH BID #30 disk 05/02 [Last Taken 10/22/17] Pregabalin [Lyrica 50mg (*)] 100 mg PO TID #180 cap 05/02/17 [Last Taken ] metFORMIN HCL [Glucophage 500 mg (*)] 1,000 mg PO BIDMEAL #60 tab 05/02/17 [ Last Taken 10/10/17] traZODone [traZODONE 50MG (*)] 50 mg PO HS #30 tab 05/02/17 [Last Taken 10/10/17 ] Insulin Aspart [novoLOG] 38 - 40 unit SQ AC 10/24/17 [Last Taken 10/23/17 12:00] Tiotropium Inhaler [Spiriva Inhaler (RX)] 2 puffs IH DAILY 10/24/17 [Last Taken 10/22/17] Furosemide [Lasix 20 MG (*)] 20 mg PO BIDDIUR tab 11/01/17 [Last Taken Unknown] Insulin Glargine [Lantus 100 UNITS/ML (*)] 10 units SC DAILY ml 11/01/17 [Last Taken Unknown] Nystatin Powder [Mycostatin Powder] 1 wendy TP TID powder 11/01/17 [Last Taken Unknown] Polyethylene Glycol 3350 [Miralax 17 gm (*)] 17 gm PO DAILY PRN pkt 11/01/17 [ Last Taken Unknown] Sennosides/Docusate Sodium [Senokot-S] 1 - 2 tab PO BID tab 11/01/17 [Last Taken Unknown] Warfarin Sodium [Coumadin 5MG (*)] 5 mg PO DAILY16 #30 tab 11/01/17 [Last Taken Unknown] oxyCODONE CR [Oxycontin] 10 mg PO BID tab 11/01/17 [Last Taken Unknown] oxyCODONE IR [Oxycodone Ir (*)] 5 - 10 mg PO Q3 PRN tab 11/01/17 [Last Taken Unknown] Discharge Medications: Refer to the Discharge Home Medication list for PRN reason. - Orders Services needed: Registered Nurse, Physical Therapy, Occupational Therapy Isolation Type: None Diet Recommendation: cardiac -low fat low salt Diet Texture: Regular Texture Diet - Labs/Radiology PT/INR Date: 11/03/17 (for warfarin management) - Follow Up Care Current Providers and Referrals: [facility],. [Clinic] - As per Instructions Patient,NotPresent [Unknown] - As per Instructions
[2017-11-01] MEDS ORDERED: WARFARIN SODIUM 5 MG TAB PO ONE (16:00)
--- NOTE | 2017-11-01 19:18 | HOSPPROG ---
Hospitalist Progress Note Assessment/Plan: 62 yo female with hx of Factor 5 Leiden admitted with acute P.E., COPD-E, Diastolic CHF, and chronic pain syndrome. # acute pulmonary embolism- SOB improving but still difficult when exerting- Echo: preserved LVEF. No heart strain- INR 2.52 CTA (personally reviewed and interpreted) moderate to large bilateral PE - Continue warfarin - follow INR # Acute on chronic resp failure, multifactorial including PE, COPD and chronic HF- clinically improving oxygen saturations 94% on RA - continue anticoagulation - cont PO lasix - cont tiotropium - # history of factor 5 Leiden- INR therapeutic # chronic diastolic CHF exacerbation - Cont PO lasix - cont BP control # Hypotension, resolved, due to diuretics, gentle diuresis # COPD with exacerbation- clinically improving - dc prednisone burst - cont tiotropium # type 2 diabetes, A1C is 8, Hyperglycemia, steroid induced - dc prednisone - cont SSI # history of heroin abuse and chronic pain syndrome- Began with heroin again recently after her my methadone dose was decreased - Using some amount of narcotics for pain- will change methadone to MS Contin # YSABEL # morbid obesity- 115 Kg # homelessness- working on SNF placement I have discussed the case with CM and pharmacy - will adjust pain meds to assist in dc tomorrow Subjective: breathing more easily Objective: Vital Signs Temp Pulse Resp BP Pulse Ox 36.9 C 85 18 113/69 94 11/01/17 17:30 11/01/17 17:30 11/01/17 17:30 11/01/17 17:30 11/01/17 17:30 Laboratory Results 11/01/17 10:25 10/31/17 05:33 10/31/17 11/01/17 11/02/17 05:59 05:59 05:59 Intake Total 1810 2300 800 Output Total 1800 2950 500 Balance 10 -650 300 PT 27.1 SEC (12.0-15.0) H 11/01/17 10:25 INR 2.52 (0.83-1.16) H 11/01/17 10:25 - Physical Exam Constitutional: appears nourished Eyes: anicteric sclera Ears, Nose, Mouth, Throat: moist mucous membranes Cardiovascular: regular rate and rhythym Respiratory: no respiratory distress Gastrointestinal: normoactive bowel sounds Genitourinary: no bladder fullness Skin: warm Musculoskeletal: No asymmetric calves Neurologic: AAOx3 Psychiatric: interacting appropriately, not anxious Lymph, Heme, Immunologic: no cervical LAD ICD10 Worksheet Patient Problems: Problems Problem Status Onset CHF (congestive heart failure) Acute Dyspnea Acute Peripheral edema Acute Pulmonary emboli Acute Abscess of abdominal wall Acute Abscess of thigh Acute Depression Acute Heroin addiction Acute MRSA (methicillin resistant Staphylococcus aureus) Acute 07/01/15 Urinary tract infection Acute
[2017-11-01 21:39] VITALS: O2SAT 93
[2017-11-01] MEDS: morphINE SR 15 MG TAB PO SCH (21:53)
[2017-11-01] MEDS: traZODone 50 MG TAB PO SCH (21:53)
[2017-11-02] MEDS: oxyCODONE IR 5 MG TAB PO PRN ×4 (01:16→11:35)
[2017-11-02] MEDS: NYSTATIN POWDER 15 GM BTL TP SCH ×2 (01:17→09:58)
[2017-11-02 04:53] VITALS: TEMP 98.1
[2017-11-02] MEDS: ALBUTEROL 200 PUFFS/18 GM MDI IH SCH ×2 (05:06→10:55)
[2017-11-02 05:36] LABS: INR 2.63 (0.83-1.16)
--- NOTE | 2017-11-02 07:28 | PDIAF ---
- Diagnosis Diagnosis: hypoxic resp failure Code Status: Full Code - Medication Management Discharge Medications: Medications to Continue on Transfer Albuterol [Proventil Inhaler HFA (*)] 1 - 2 puffs IH QID PRN #30 mdi 05/02/17 [ Last Taken 10/17/17] Fluticasone/Salmeter 250/50Mcg [Advair 250/50 (*)] 1 puffs IH BID #30 disk 05/02 [Last Taken 10/22/17] Pregabalin [Lyrica 50mg (*)] 100 mg PO TID #180 cap 05/02/17 [Last Taken ] metFORMIN HCL [Glucophage 500 mg (*)] 1,000 mg PO BIDMEAL #60 tab 05/02/17 [ Last Taken 10/10/17] traZODone [traZODONE 50MG (*)] 50 mg PO HS #30 tab 05/02/17 [Last Taken 10/10/17 ] Insulin Aspart [novoLOG] 38 - 40 unit SQ AC 10/24/17 [Last Taken 10/23/17 12:00] Tiotropium Inhaler [Spiriva Inhaler (RX)] 2 puffs IH DAILY 10/24/17 [Last Taken 10/22/17] Furosemide [Lasix 20 MG (*)] 20 mg PO BIDDIUR tab 11/01/17 [Last Taken Unknown] Insulin Glargine [Lantus 100 UNITS/ML (*)] 10 units SC DAILY ml 11/01/17 [Last Taken Unknown] Nystatin Powder [Mycostatin Powder] 1 wendy TP TID powder 11/01/17 [Last Taken Unknown] Polyethylene Glycol 3350 [Miralax 17 gm (*)] 17 gm PO DAILY PRN pkt 11/01/17 [ Last Taken Unknown] Sennosides/Docusate Sodium [Senokot-S] 1 - 2 tab PO BID tab 11/01/17 [Last Taken Unknown] Warfarin Sodium [Coumadin 5MG (*)] 5 mg PO DAILY16 #30 tab 11/01/17 [Last Taken Unknown] morphINE SR [Ms Contin/Oramorph 15 mg (*)] 15 mg PO BID #60 tab 11/01/17 [Last Taken Unknown] oxyCODONE IR [Oxycodone Ir (*)] 5 - 10 mg PO Q3 PRN tab 11/01/17 [Last Taken Unknown] Discharge Medications: Refer to the Discharge Home Medication list for PRN reason. - Orders Services needed: Registered Nurse, Physical Therapy, Occupational Therapy Isolation Type: None Diet Recommendation: cardiac -low fat low salt Diet Texture: Regular Texture Diet - Labs/Radiology PT/INR Date: 11/04/17 (for warfarin management) - Follow Up Care Current Providers and Referrals: [facility],. [Clinic] - As per Instructions Patient,NotPresent [Unknown] - As per Instructions
[2017-11-02 07:52] VITALS: BP 149/78; PULSE 80; RESP 20
[2017-11-02] MEDS: INSULIN LISPRO 100 UNIT/ML SC SCH (08:16)
[2017-11-02] MEDS: SENNOSIDES/DOCUSATE SODIUM TAB PO SCH (08:17)
[2017-11-02] MEDS: PREGABALIN 100 MG CAP PO SCH (08:18)
[2017-11-02] MEDS: FUROSEMIDE 20 MG TAB PO SCH (08:19)
[2017-11-02] MEDS: morphINE SR 15 MG TAB PO SCH (08:20)
[2017-11-02] MEDS: INSULIN GLARGINE 100 UNITS/ML SYRINGE SC SCH (09:24)
[2017-11-02] MEDS: FLUTICASONE/SALMETER 250/50MCG DISKUS IH SCH (09:58)
[2017-11-02] MEDS: TIOTROPIUM INHALER 18 MCG/DOSE 5 DOSE/MDI IH SCH (09:59)
--- NOTE | 2017-11-02 11:55 | ASDISCHSUM ---
Discharge Information Plan Status:SNF Medically Cleared to Leave:11/01/2017 Discharge Date:11/02/2017 11:37 AM D/C Disposition:Care Home Facility ADT D/C Disposition:Care Home Facility Projected Discharge Date:10/28/2017 11:00 AM Transportation at D/C:Family Discharge Delay Reason: Follow-Up Date:10/28/2017 11:00 AM Discharge Slot: Final Diagnosis: Placement Information Referral Type:*Jail/SNF Referral ID:[id number] Provider Name:[facility] Address 1:[address] [place] [address] Address 2: City:[place] Selection Factors: State:[place] Referral Type:Assisted Living Residence Referral ID:[id number] Provider Name: Address 1: Phone Number: Address 2: Fax Number: City: Selection Factors: State: Patient Contact Information Contact Name:ADRIEL Relationship: Address: Home Phone: Work Phone: City: Alternate Phone: State/Zip Code: Email: Financial Information Financial Class: Primary Plan Desc[place] [place] Primary Plan Number:[id number] Secondary Plan Desc: Secondary Plan Number: Assessment Information [facility] CM Progress Note CM Note CM Note Notes: 10/25/2017 Case Management Note Met w/pt. Pt reports living in [place] but housing situation has changed recently and needs new place to live. She has 3 dogs she has left in the care of her former room mate. Pt is homeless. Provided information on the new intake system for the [facility] Custodial. Awaiting PT evals for assessment for possible SNF placement. Pt insurance will require a ULTC 100 application and 30 day stay in SNF. Pt reports previous SNF stay at [facility]. Pt reports in the past utilizing services from [facility] and [facility] here in [place]. Case Management d/c poc: to be determined. Case Management to follow. Date Signed: 10/25/2017 12:08 PM Electronically Signed By:Elaine Melchor RN [facility] Progress Note CM Note CM Note Notes: CM met w/ pt for dispo planning. PT is recommending SNF. Pt reports that she will not go to rehab for 30 days in fears of losing her two dogs. Pt reports that she doesn't have anybody that can watch her dogs for her. Pt reports that she will d/c to the streets when she is medically stable. CM spoke w/ Dr. Bailon regarding d/c POC. Pt will need to be on an anticoagulant agent. CM called [facility]'s pharmacy to see if they could check how much her copay would be. [facility]'s pharmacy informed CM that most likely because pt has Medicaid it will require a prior auth. CM communicated this to Dr. Bailon. CM to follow for d/c needs. Plan: Independent Date Signed: 10/26/2017 03:58 PM Electronically Signed By:ADEEL Ramsey [facility] REYNA Progress Note CM Note CM Note Notes: PT worked w/ pt this AM and reports that pt is agreeable to going to rehab and have found someone to watch her dogs. REYNA completed ULTC-100 application. CM called Avi at [facility] and left a msg inquiring about the assessors name and phone number. CM put the ULTC-100 in pts chart and faxed attached it to [employer]. CM met w/ pt for dispo planning. Pt is agreeable to having a referral made to [facility]. CM to follow. Plan: SNF pending ultc-100 approval Date Signed: 10/27/2017 12:39 PM Electronically Signed By:ADEEL Ramsey [facility] Progress Note CM Note CM Note Notes: Debbie Ortega from [facility] came and assess pt. Pt has been approved for 30 day rehab. [facility] is unable to accept at this time due to pts [place] Medicaid eligibility. According to [facility] pt does not have alf care benefits. CM contacted [facility] to see if they can screen her for LT medicaid. New referrals to be made to SNF in [place] and to [facility]. Pt prefers to be in [place] to be closer to her dogs but her second choice is [facility]. CM to follow. Plan: SNF Date Signed: 10/28/2017 10:52 AM Electronically Signed By:ADEEL Ramsey Case Management Discharge Plan Note Case Management Discharge Discharge Order Complete? Answers: Yes Patient to Obtain Answers: Other Notes: facility Medications Transportation Arranged Answers: Other Notes: transportation arranged by [facility] will Pick (Date 11/02/2017 11:45 AM & Time) Faxed Final Orders Answers: Yes Notes: [phone] Agency/Facility Transfer Answers: Yes Report Printed & Faxed to Receiving Agency Family Notified Answers: No Notes: pt not in contact with family Discharge Comments Notes: 11/02/2017 Case Management Note Faxed orders to [facility] [phone] fax [phone] via [employer] at [facility]'s request. [facility] arranged transport. Pt in agreement with placement. Pt transport via wheelchair on room air. Pt placed at [facility]. Notified top case assembler at [facility] [phone]. Confirmed that [facility] received PASSR and ULTC 100. Date Signed: 11/02/2017 11:55 AM Electronically Signed By:Elaine Melchor RN Intervention Information
[2017-11-02] MEDS ORDERED: WARFARIN SODIUM 2.5 MG TAB PO ONE (16:00)
--- NOTE | 2017-11-03 05:30 | GDS ---
[f rep st] DISCHARGE SUMMARY DISCHARGE DIAGNOSES: 1. Acute pulmonary embolism. 2. Acute on chronic respiratory failure secondary to chronic obstructive pulmonary disease, pulmonar y embolism, and chronic heart failure. 3. History of factor V Leiden. 4. Chronic diastolic heart failure. 5. Chronic obstructive pulmonary disease. 6. Type 2 diabetes. 7. Chronic pain with continuous narcotic dependency. 8. History of heroin abuse secondary to narcotic addiction. 9. Obstructive sleep apnea. 10. Morbid obesity. 11. Homelessness. HISTORY OF PRESENT ILLNESS: A 62-year-old female with a history of factor V Leiden, admitted with ac [place] pulmonary embolism. For details of the patient's initial presentation, please see the history an d physical printed on 10/24/2017. HOSPITAL COURSE BY ISSUE: 1. Acute pulmonary embolism. Patient was initiated on heparin and warfarin anticoagulation. On the day of disposition, the patient's INR is therapeutic at 2.6, and she has been titrated off supplemen pj oxygen with minimal symptoms in her chest. 2. Acute on chronic respiratory failure. The patient was treated simultaneously for COPD exacerbati on, acute diastolic heart failure, and her pulmonary embolism. Again on the day of disposition, she has been weaned off all supplemental oxygen and was on stable chronic medications. 3. Factor V Leiden. Patient will require lifelong anticoagulation on Coumadin. 4. Type 2 diabetes. Patient did have some hyperglycemia during her stay thought related to steroid. Patient's blood sugars were in improved control on the day of disposition. 5. Chronic pain with continuous narcotic dependency. Patient's medication regimen was titrated to a low-dose, long-acting morphine with p.r.n. oxycodone. She had excellent control with this and can s afely transition from the inpatient setting to nursing home on this regimen. 6. Morbid obesity. Certainly compounds multiple of her above comorbidities. MEDICATIONS AT THE TIME OF DISPOSITION: Please reference med rec printed on 11/02/2017. FOLLOWUP APPOINTMENTS: Patient is being discharged to nursing home and [facility] Dr. Marvin, to resume care of her comorbidities when she is discharged from nursing home. PENDING STUDIES: At the time of this dictation are none. TIME SPENT: I spent greater than 30 minutes in the planning and coordination of this discharge. /[id number]/MODL
== END 2017-11-02 11:37 | DRG 175 ==
LOC: EDUNIT# → F2W 15:15
PROVIDERS: ADMIT Internal Medicine; ATTEND Internal Medicine
PROC: 02HV33Z Insertion of Infusion Device into Superior Vena Cava, Percutaneous Approach (ICD-10-PCS; principal; 2017-10-24)
DX: I26.99 Other pulmonary embolism without acute cor pulmonale (principal); J96.20 Acute and chronic respiratory failure, unspecified whether with hypoxia or hypercapnia; I50.32 Chronic diastolic (congestive) heart failure; F11.20 Opioid dependence, uncomplicated; D68.2 Hereditary deficiency of other clotting factors; J44.9 Chronic obstructive pulmonary disease, unspecified; E11.9 Type 2 diabetes mellitus without complications; G89.29 Other chronic pain; G47.33 Obstructive sleep apnea (adult) (pediatric); I25.2 Old myocardial infarction; E66.01 Morbid (severe) obesity due to excess calories; Z59.0 Homelessness; Z79.4 Long term (current) use of insulin; Z86.711 Personal history of pulmonary embolism; Z86.718 Personal history of other venous thrombosis and embolism
CPT/HCPCS: 96374; 97116-GP; 97161-GP; 97530-GP; C1751; J1170; J1200; J1650; J1815; J1940; J2060; J2550; J2930; Q9967